=== PATIENT | male | born 1950 | race Caucasian/White ===

== ENCOUNTER 2020-03-15 10:55 | Emergency (ER) | payer MEDICARE, OTHER, MEDICAID, SELFPAY ==
[2020-03-15] VITALS (7 sets, daily range): BP systolic 126–148; BP diastolic 63–83; PULSE 84–101; RESP 19–22; TEMP 37.1; O2SAT 95–97; BMI 23.6
--- NOTE | 2020-03-15 10:55 | ECG_ITS ---
APPROVED REPORT Exam: Resting ECG HR:101 bpm ECG Measurements Heart Rate 101 AXES SD 128 P 68 QRSd 98 QRS 89 QT 346 T 65 QTc 448 Conclusion Sinus tachycardia with occasional premature ventricular complexes Incomplete right bundle branch block Borderline ECG Electronically signed by : Kai Romano, 03/15/2020 16:33:49
--- NOTE | 2020-03-15 11:03 | [facility].EDSOB ---
ED Disposition Clinical Impression: COVID-19, Pneumonia due to COVID-19 virus Disposition: Home, Self-Care Condition on Discharge: Good Instructions: Pneumonia-Adult Referrals: Rey Tanner [Primary Care Provider] - 3 days Time of Disposition: 14:24 - Critical Care Critical Care Time: No Attestation: On , the high probability of a clinically significant, sudden or life threatening deterioration of the following system(s) required my full and direct attention, intervention and personal management. The time I documented below is in addition to time spent performing reported procedures but includes the following listed in this critical care notation. Medical Decision Making - Medical Records Medical records reviewed: Yes: I reviewed the patient's medical records. - Judd Inquiry Pt receiving controlled substance: No Vital Signs: 03/15/20 10:57 03/15/20 11:27 03/15/20 12:00 Temperature 98.8 F Temperature Source Oral Pulse Rate [Left Radial] 101 H 96 H 91 H Respiratory Rate 22 Blood Pressure [Right Arm] 141/83 H 145/73 H 143/67 H Blood Pressure Mean [Right Arm] 102 97 92 Blood Pressure Source [Right Arm] Automatic Cuff Automatic Cuff Automatic Cuff Blood Pressure Position [Right Arm] Sitting Sitting Sitting 02 Sat by Pulse Oximetry 95 96 96 Oxygen Delivery Method Room Air Room Air Room Air 03/15/20 13:00 03/15/20 13:30 Temperature Temperature Source Pulse Rate [Left Radial] 93 H 84 Respiratory Rate Blood Pressure [Right Arm] 145/63 H 132/64 Blood Pressure Mean [Right Arm] 90 86 Blood Pressure Source [Right Arm] Automatic Cuff Automatic Cuff Blood Pressure Position [Right Arm] Sitting Sitting 02 Sat by Pulse Oximetry 95 96 Oxygen Delivery Method Room Air Room Air - Lab Data Lab Results 03/15/20 10:52: Magnesium 2.0, Troponin I < 0.01 03/15/20 10:59: WBC 7.0, RBC 5.11, Hgb 15.5, Hct 47.0, MCV 91.9, MCH 30.3, MCHC 33.0, RDW 13.6, Plt Count 203, MPV 9.1, Neut % (Auto) 83.8 H, Lymph % (Auto) 9.1 L, [place] % (Auto) 6.5, Eos % (Auto) 0.0 L, Baso % (Auto) 0.6, Neut # (Auto) 5.9, Lymph # (Auto) 0.6 L, [place] # (Auto) 0.5, Eos # (Auto) 0.0, Baso # (Auto) 0.0 03/15/20 10:59: Sodium 137, Potassium 4.2, Chloride 99, Carbon Dioxide 27, Anion Gap 15.2 H, BUN 17, Creatinine 0.80, Estimated Creat Clear 73, Estimated GFR 96, Est GFR ( Amer) 116, Glucose 133 H, Calcium 9.5, Total Bilirubin 0.8, AST 44, ALT 24, Alkaline Phosphatase 72, Total Protein 8.6 H, Albumin 4.6, Globulin 4.0 H, Albumin/Globulin Ratio 1.2 03/15/20 11:05: Chlamy pneumoniae PCR Not detected, Adenovirus (PCR) Not detected, B. pertussis DNA (PCR) Not detected, Coronavirus OC43 (PCR) Not detected, Coronavirus HKU1 (PCR) Not detected, Coronavirus 229E (PCR) Not detected, SARS-CoV-2 (PCR) Detected A, Coronavirus NL63 (PCR) Not detected, Human Metapneumovir PCR Not detected, Influenza A (H1) PCR Not detected, Influ A (H1N1/09) PCR Not detected, Influenza A (H3) PCR Not detected, Influenza Type A (PCR) Not detected, Influenza Type B (PCR) Not detected, M. pneumoniae (PCR) Not detected, Parainfluenza 1 (PCR) Not detected, Parainfluenza 2 (PCR) Not detected, Parainfluenza 3 (PCR) Not detected, Parainfluenza 4 (PCR) Not detected, RSV (PCR) Not detected, Entero/Rhino (PCR) Not detected Result diagrams: 03/15/20 10:59 03/15/20 10:59 Orders (Tests/Meds): ED MEDICATIONS Generic Name Dose Route Start Last Admin Trade Name Freq PRN Reason Stop Dose Admin Sodium Chloride 10 ml 03/15/20 12:25 03/15/20 12:27 Sodium Chloride 0.9% 10ml Syr (Rad Only) IV 04/14/20 12:24 10 ml NEEDED PRN Administration Maintain IV Site Discontinued Medications Generic Name Dose Route Start Last Admin Trade Name Freq PRN Reason Stop Dose Admin Diphenhydramine HCl 25 mg 03/15/20 12:13 03/15/20 12:23 Diphenhydramine 50mg/Ml Vial IV 03/15/20 12:14 25 mg ONCE ONE Administration Iopamidol 70 ml 03/15/20 12:25 03/15/20 12:27 Iopamidol-
--- NOTE | 2020-03-15 11:05 | XR_ITS ---
PROCEDURE: XR CHEST PORTABLE CLINICAL HISTORY: sob Chest pain, former smoker COMPARISON: No exams were available for comparison FINDINGS: There are no previous exams available for comparison. Surgical clips are present in both jayjay. There is are changes of COPD. In the right upper lobe there is a irregular area of parenchymal opacity extending to the hilum. While this could be related to scarring or postsurgical change, neoplasm is also consideration. There is mild prominence of the right hilum. Recommend correlation with old studies which are not available at this institution. Patchy infiltrate is present in the right perihilar region. No acute bony abnormalities. IMPRESSION: COPD with postsurgical changes and parenchymal opacity in the right upper lobe which could be due to scarring or neoplasm. Correlation with old exams the Patchy right perihilar infiltrate. Dictated by: Russel Montoya MD 03/15/2020 11:32 Russel Montoya MD in [facility] 03/15/2020 11:32
[2020-03-15 11:16] LABS: Basophils % 0.6 % (0.1-2.0); Hemoglobin 15.5 g/dL (14.1-18.0); Lymphocytes # 0.6 K/mm3 (0.7-4.5); Lymphocytes % 9.1 % (10-50); Mean Corpuscular Hemoglobin 30.3 pg (27.0-31.2); Mean Corpuscular Volume 91.9 fl (80-94); Mean Platelet Volume 9.1 fl (7.4-10.4); Monocytes # 0.5 K/mm3 (0.1-1.0); Monocytes % 6.5 % (1.7-9.3); Neutrophils # 5.9 K/mm3 (1.8-7.8); Neutrophils % 83.8 % (37.0-80.0); Platelet Count 203 K/mm3 (142-424); Red Blood Count 5.11 M/mm3 (4.60-6.20); Red Cell Distribution Width 13.6 % (11.5-17.5)
[2020-03-15 11:33] LABS: Alanine Aminotransferase 24 U/L (12-78); Albumin Level 4.6 g/dl (3.5-5.0); Albumin/Globulin Ratio 1.2 (1.1-1.8); Alkaline Phosphatase 72 U/L (38-126); Anion Gap 15.2 mEq/L (5-15); Aspartate Amino Transferase 44 U/L (17-59); Bilirubin,Total 0.8 mg/dl (0.2-1.3); Blood Urea Nitrogen 17 mg/dl (9-20); Calcium 9.5 mg/dl (8.4-10.2); Carbon Dioxide 27 mmol/L (22.0-30.0); Chloride 99 mmol/L (98-107); Creatinine Clearance Estimated 73 mL/min (50-200); Estimated Glomerular Filt Rate 96 ml/min (>60); GFR (African American) 116 ML/MIN (>60); Glucose 133 mg/dl (74-100); Potassium 4.2 mmoL/L (3.5-5.1); Sodium 137 mmol/L (136-145); Total Protein,Serum 8.6 g/dl (6.3-8.2)
[2020-03-15 11:49] LABS: Troponin I < 0.01 ng/ml (0.00-0.034)
[2020-03-15 11:52] LABS: Adenovirus,PCR Not Detected (NotDetected); Bordetella Pertussis Not Detected (NotDetected); Chlamydophila Pneumoniae, PCR Not Detected (NotDetected); Coronavirus 229E Not Detected (NotDetected); Coronavirus NL63 Not Detected (NotDetected); Coronavirus OC43 Not Detected (NotDetected); Coronovirus HKU1,PCR Not Detected (NotDetected); Human Metapneumovirus Not Detected (NotDetected); Influenza A, PCR Not Detected (NotDetected); Influenza AH1, 2009 Not Detected (NotDetected); Influenza AH1, PCR Not Detected (NotDetected); Influenza AH3,PCR Not Detected (NotDetected); Influenza B, PCR Not Detected (NotDetected); Mycoplasma Pneumoniae, PCR Not Detected (NotDetected); Parainfluenza 1, PCR Not Detected (NotDetected); Parainfluenza 2, PCR Not Detected (NotDetected); Parainfluenza 3, PCR Not Detected (NotDetected); Parainfluenza 4, PCR Not Detected (NotDetected); Respiratory Syncytial Virus Not Detected (NotDetected); Rhinovirus/Enterovirus Not Detected (NotDetected)
--- NOTE | 2020-03-15 11:59 | CT_ITS ---
PROCEDURE: CT ANGIO CHEST CLINCIAL INDICATION: abnl xray; h/o Lung cancer Shortness of breath, former smoker COMPARISON: No exams were available for comparison TECHNIQUE: IV Contrast: 70ML Isovue 370 Axial images obtained with sagittal and coronal reformats. All CT scans at the facility use one or more dose reduction, viz: automated exposure control, ma/kV adjustment per patient size (including targeted exams where dose is matched to indication, i.e. head), or iterative reconstruction technique. FINDINGS: HEART AND MEDIASTINAL STRUCTURES: No evidence of aortic dissection. There is mild fusiform dilatation of the proximal descending thoracic aorta at 3.3 cm no evidence of pulmonary embolus. LUNGS AND PLEURAL SPACES: There are changes of COPD. Postsurgical changes are present in the jayjay on both sides. Appears to been a prior right lower lobe lobectomy in a prior left upper lobectomy. Please correlate with patient's surgical history. Increased soft tissue density is present in the right hilum and posterior to the right lower lobe bronchus. This area of soft tissue density posterior to the right lower lobe bronchus in the right paraspinal region measures 3.8 x 3 cm AP and transverse. There are surgical clips in this region. This could be related to postsurgical and post radiation changes. There are no previous exams for comparison. Residual or recurrence neoplasm is also a consideration. Scarring is present in the right mid to upper lung zone posteriorly. In addition, there is septal thickening in the right mid lung and right lung base suspicious for superimposed infiltrate upon chronic changes. Covid19 pneumonia would be a consideration. No effusions are evident. BONY STRUCTURES: Degenerative changes thoracic spine with osteophytosis UPPER ABDOMEN: The left adrenal gland is enlarged measuring 2 cm with a density of 10 Hounsfield units which could represent an adenoma. Correlation with old studies needed. Cholelithiasis noted. ADDITIONAL FINDINGS: No other significant abnormalities. IMPRESSION: 1. Postsurgical changes of both right and left lung with COPD. 2. Abnormal soft tissue density posterior to the right hilum in the right midlung posteriorly in the paraspinal region. This may be related to postsurgical change with scarring and or radiation fibrosis. Cannot exclude the possibility of residual or recurrence neoplasm. Correlation with old films and follow-up is needed. 3. Patchy density with septal thickening in the right mid and lower lung zone consistent with pneumonia and may be seen with Covid19 pneumonia. 4. Enlarged indeterminate left adrenal gland. Dictated by: Russel Montoya MD 03/15/2020 12:54 Russel Montoya MD in [facility] 03/15/2020 12:54
--- NOTE | 2020-03-15 12:08 | PC.NURSE ---
Patient going to rad.
--- NOTE | 2020-03-15 12:39 | PC.NURSE ---
Pt returned from rad
[2020-03-15 13:26] LABS: Coronavirus 19, PCR Detected (NotDetected)
--- NOTE | 2020-03-15 13:28 | PC.NURSE ---
notified ER pt is covid positive per lab staff
--- NOTE | 2020-03-15 14:24 | PC.NURSE ---
MD advised to cancel second troponin.
== END 2020-03-15 14:59 | disposition home or self-care (01) ==
PROVIDERS: Emergency Provider Family Medicine; PCP Family Medicine
DX: U07.1 COVID-19 (principal); J12.82 Pneumonia due to coronavirus disease 2019; Z01.84 Encounter for antibody response examination; Z85.118 Personal history of other malignant neoplasm of bronchus and lung
CPT/HCPCS: 71045; 71275; 80053; 83735; 84484; 85025; 87581; 87633; 87798; 93005; 96374; 96375; 99283; J2405; Q9967

== ENCOUNTER 2020-03-19 10:34 | Outpatient (CLI) | payer MEDICARE, OTHER, SELFPAY ==
[2020-03-19] VITALS (9 sets, daily range): BP systolic 135–149; BP diastolic 61–74; PULSE 76–98; RESP 16–20; TEMP 37.1–37.3; O2SAT 97–100
== END 2020-03-19 13:35 | disposition home or self-care (01) ==
PROVIDERS: PCP Family Medicine; Visit Provider Family Medicine
DX: U07.1 COVID-19 (principal)
CPT/HCPCS: 96365

== ENCOUNTER 2024-02-23 07:08 | Emergency (ER) | payer MEDICARE, OTHER, SELFPAY ==
[2024-02-23] VITALS (10 sets, daily range): BP systolic 139–186; BP diastolic 63–110; PULSE 74–104; RESP 9–24; TEMP 36.6; O2SAT 96–100; BMI 25.7
--- NOTE | 2024-02-23 07:17 | ECG_ITS ---
APPROVED REPORT Exam: Resting ECG HR:92 bpm ECG Measurements Heart Rate 92 AXES NV 160 P 85 QRSd 106 QRS 77 QT 333 T 62 QTc 383 Conclusion SINUS RHYTHM INCOMPLETE RIGHT BUNDLE BRANCH BLOCK [90+ ms QRS DURATION, TERMINAL R IN V1/V2, 40+ ms S IN I/aVL/V4/V5/V6] BORDERLINE ECG Electronically signed by : CHINEDU SELBY, 02/23/2024 15:32:19
--- NOTE | 2024-02-23 07:22 | CT_ITS ---
PROCEDURE INFORMATION: Exam: CTA Chest With Contrast Exam date and time: 02/23/2024 9:08 AM Age: 73 years old Clinical indication: Cough and dyspnea; Prior surgery; Surgery date: 6+ months; Surgery type: Lobectomy 2013; Additional info: Prev lung cancer SOB cough S/P lobectomy TECHNIQUE: Imaging protocol: Computed tomographic angiography of the chest with contrast. Exam focused on the arteries. 3D rendering (Not supervised by radiologist): MIP and/or 3D reconstructed images were created by the technologist. Radiation optimization: All CT scans at this facility use at least one of these dose optimization techniques: automated exposure control; mA and/or kV adjustment per patient size (includes targeted exams where dose is matched to clinical indication); or iterative reconstruction. Contrast material: ISOVUE; Contrast volume: 70 ml; Contrast route: INTRAVENOUS (IV); COMPARISON: CT ANGIO CHEST 03/15/2020 12:17 PM FINDINGS: Pulmonary arteries: Pulmonary vasculature is adequately opacified without filling defects or other evidence of acute pulmonary embolism. Aorta: Scattered atherosclerotic changes of the thoracic aorta. No aortic aneurysm. Lungs: Stable postsurgical changes right hilum from partial lobectomy with chronic subsegmental atelectasis and scarring extending posteriorly into the superior segment left lower lobe redemonstrated. There is extension superiorly-laterally into the right upper lobe where there is a 2.5 cm spiculated mass now demonstrated concerning for recurrent tumor. There are superimposed upper lobe emphysematous changes, stable. There are minor atelectatic changes the lung bases improved from prior study. Pleural spaces: Unremarkable. No pneumothorax. No pleural effusion. Heart: Heart is not significantly enlarged. There are mild calcifications of the coronary arteries. No significant pericardial effusion. Lymph nodes: Unremarkable. No enlarged lymph nodes. Adrenal glands: The 2 cm left adrenal lesion unchanged likely representing a benign adenoma. Bones/joints: There are no acute bony abnormalities or suspicious bone lesions detected. Soft tissues: Unremarkable. IMPRESSION: 1. Negative CT angiogram of the chest. No evidence of acute pulmonary embolism. 2. Postsurgical changes right hilum with associated scarring extending posteriorly to the right hilum, unchanged. 3. There is also extension superiorly-laterally into the right upper lobe that has progressed where there is now a 2.5 cm spiculated masslike density raising concern for recurrent tumor. CT-PET scan recommended for further evaluation.. COMMENTS: The presence of pulmonary emphysema on CT is an independent risk factor for lung cancer. In the absence of a history or active diagnosis of lung cancer, it is recommended that this patient with emphysema be evaluated for enrollment in a low dose CT lung cancer screening program.
--- NOTE | 2024-02-23 07:25 | ED_ITS ---
Discharge Plan Disposition Patient Disposition: Home, Self-Care Prescriptions Prescriptions: New prednisone 50 mg tablet 50 mg PO DAILY 5 Days Qty: 5 0RF azithromycin [Zithromax Z-Pelon] 250 mg tablet 250 mg PO DAILY 4 Days Qty: 4 0RF Rx Instructions: start on day 2 of therapy No Action azithromycin 250 MG tablet 250 mg PO DIRECTED Qty: 6 0RF Rx Instructions: Take two (2) tablets on day #1, then one (1) tablet day #2 thru #5 Referrals Follow up/Referrals: Provider,Referral, MD [Primary Care Provider] - See instructions Activity Restrictions/Add. Instructions Additional Instructions/Restrictions: At this time it was felt you are safe to be discharged home. If new or worsening symptoms please do not hesitate to return the emergency department. Please take your medications as prescribed and as discussed please follow-up with your oncologist to continue to keep an eye on the spot on your lung on the right side that you already know about. Clinical Impressions Clinical Impression: Acute exacerbation of chronic obstructive pulmonary disease, Lung mass Print Language Print Language: [place] Discharge ED Provider: Guido Palma HPI General Chief Complaint: Shortness of Breath/Dyspnea Stated Complaint: SOA,cough,weakness,dizziness Time Seen by Provider: 02/23/24 07:13 History of Present Illness HPI narrative: Patient is a 73-year-old male with past medical history of lung cancer status post multiple lobectomy at [facility] who presents emergency department for evaluation of shortness of breath and cough. Onset was subacute, over the last 4 weeks, has been persistent and originally started as a cough where he was not particular short of breath however over the last few days he has had worsening shortness of breath. Denies chest pain. No other acute complaints at this time. Related Data Previous Rx's ?Medication ?Instructions ?Recorded azithromycin 250 mg tablet 250 mg PO DIRECTED #6 tabs 03/15/20 azithromycin 250 mg tablet 250 mg PO DAILY COPD Exacerbation 02/23/24 (Zithromax Z-Pelon) 4 days #4 tabs prednisone 50 mg tablet 50 mg PO DAILY COPD Exacerbation 5 02/23/24 days #5 tabs Allergies Allergy/AdvReac Type Severity Reaction Status Date / Time No Known Allergies Allergy Verified 03/15/20 11:06 [facility] Disclaimer: The information contained in this section may have been updated after the patient was seen, as this information can be updated by other users. Social History Smoking Status: Former smoker alcohol intake: never current occupational status: other Travel in the last 8 weeks: None Other Medical History Have you received the Flu Vaccine for this season: No Have you received the Pneumonia Vaccine: No ROS Obtained: Yes Systems reviewed as appropriate & no additional complaints except as documented Physical Exam General General appearance: alert and in no apparent distress Head Head exam: atraumatic and normocephalic Eye Eye exam: Present PERRL and EOMI ENT ENT exam: Present mucous membranes moist Neck Neck exam: Present normal inspection Chest Chest inspection: Present normal inspection and symmetric chest wall rise Respiratory Respiratory exam: Absent normal lung sounds bilaterally (Diffuse rhonchorous lung sounds, decreased breath sounds at the right base and left apex) or respiratory distress Cardiovascular Cardiovascular exam: Present regular rate and normal rhythm Abdominal Exam Abdominal exam: Present soft; Absent tenderness Extremities Exam Extremities exam: Present normal inspection; Absent edema Neurological Exam Neurological exam: Present alert Psychiatric Psychiatric exam: Present normal affect Skin Skin exam: Present warm and dry HEART Score HEART Score HEART Score assessment performed?: Yes History (anamnesis): Slightly suspicious ECG: Non-specific disturbance Age: >65 years Risk factors: No known risk factors Troponin: </= normal limit HEART Score: 3 Critical Care Critical Care Time Critical Care Time: Yes Attestation: On 02/23/24, the high probability of a clinically significant, sudden or life threatening deterioration of the following system(s) required my full and direct attention, intervention and personal management. The time I documented below is in addition to time spent performing reported procedures but includes the following listed in this critical care notation. Total Time Total Critical Care Time: 35 Medical Decision Making Judd Inquiry Pt receiving controlled substance: No Vital Signs Vital Signs: 02/23/24 07:25 02/23/24 08:00 02/23/24 08:30 Temperature 97.8 F Temperature Source Oral Pulse Rate 74 90 Pulse Rate [Right Radial] 101 H Respiratory Rate 20 9 L 16 Blood Pressure 148/83 H 147/69 H Blood Pressure [Right Arm] 186/110 H Blood Pressure Mean 115 Blood Pressure Mean [Right Arm] 135 02 Sat by Pulse Oximetry 100 100 100 Oxygen Delivery Method Room Air Nasal Cannula 02/23/24 09:00 02/23/24 09:30 02/23/24 10:00 Temperature Temperature Source Pulse Rate 91 H 101 H 102 H Pulse Rate [Right Radial] Respiratory Rate 17 20 18 Blood Pressure 157/67 H 144/68 H 139/63 Blood Pressure [Right Arm] Blood Pressure Mean 88 Blood Pressure Mean [Right Arm] 02 Sat by Pulse Oximetry 100 96 98 Oxygen Delivery Method Room Air Room Air 02/23/24 10:30 02/23/24 11:00 Temperature Temperature Source Pulse Rate 100 H 102 H Pulse Rate [Right Radial] Respiratory Rate 17 18 Blood Pressure 148/68 H 163/78 H Blood Pressure [Right Arm] Blood Pressure Mean Blood Pressure Mean [Right Arm] 02 Sat by Pulse Oximetry 98 99 Oxygen Delivery Method Room Air Room Air Lab Data Labs: Lab Results 02/23/24 07:22: VBG pH 7.28 L, VBG pCO2 60.8 H, VBG pO2 29.4, VBG HCO3 28.1, VBG Total CO2 29.9 H, VBG O2 Saturation 50.9, VBG Base Excess 1.3, VBG Lactic Acid 2.8 H, Chlamy pneumoniae PCR Not detected, Adenovirus (PCR) Not detected, B. pertussis DNA (PCR) Not detected, Coronavirus OC43 (PCR) Not detected, Coronavirus HKU1 (PCR) Not detected, Coronavirus 229E (PCR) Not detected, SARS-CoV-2 (PCR) Not detected, Coronavirus NL63 (PCR) Not detected, Human Metapneumovir PCR Not detected, Influenza A (H1) PCR Not detected, Influ A (H1N1/09) PCR Not detected, Influenza A (H3) PCR Not detected, Influenza Type A (PCR) Not detected, Influenza Type B (PCR) Not detected, M. pneumoniae (PCR) Not detected, Parainfluenza 1 (PCR) Not detected, Parainfluenza 2 (PCR) Not detected, Parainfluenza 3 (PCR) Not detected, Parainfluenza 4 (PCR) Not detected, RSV (PCR) Not detected, Entero/Rhino (PCR) Not detected 02/23/24 07:23: WBC 9.5, RBC 5.43, Hgb 16.3, Hct 49.5, MCV 91.2, MCH 30.0, MCHC 32.9, RDW 12.5, Plt Count 275, MPV 10.3, Neut % (Auto) 73.8, Lymph % (Auto) 14.1, [place] % (Auto) 10.8 H, Eos % (Auto) 0.2, Baso % (Auto) 0.6, Neut # (Auto) 7.0, Lymph # (Auto) 1.3, [place] # (Auto) 1.0, Eos # (Auto) 0.0, Baso # (Auto) 0.1, Sodium 136, Potassium 4.3, Chloride 102, Carbon Dioxide 28, Anion Gap 10.3, BUN 16, Creatinine 0.90, Estimated Creat Clear 79, Estimated GFR 82, Est GFR ( Amer) 100, Glucose 120 H, Calcium 9.7, Total Bilirubin 1.9 H, AST 33, ALT 20, Alkaline Phosphatase 84, Troponin I < 0.01, NT-Pro-B Natriuret Pep 82.1, Total Protein 8.3 H, Albumin 5.0, Globulin 3.3 H, Albumin/Globulin Ratio 1.5 02/23/24 11:06: VBG pH 7.39, VBG pCO2 32.0 L, VBG pO2 50.9 H, VBG HCO3 18.9 L, V BG Total CO2 19.9 L, VBG O2 Saturation 85.9 H, VBG Base Excess -6.1 L, VBG Lactic Acid 2.6 H 02/23/24 07:23 02/23/24 07:23 Response Orders (Tests/Meds): ED MEDICATIONS Discontinued Medications Generic Name Dose Route Start Last Admin Trade Name Freq PRN Reason Stop Dose Admin Albuterol Sulfate 20 mg 02/23/24 08:17 02/23/24 08:20 Albuterol 0.083% 2.5 Mg/3 Ml [facility] 02/23/24 08:18 20 mg ONCE ONE Administration Albuterol/Ipratropium 9 ml 02/23/24 07:22 02/23/24 07:44 Ipratropium/Albuterol 3 Ml Neb 02/23/24 07:23 9 ml ONCE ONE Administration Aspirin 324 mg 02/23/24 07:29 02/23/24 07:33 Aspirin 81mg Chewable Tablet PO 02/23/24 07:30 324 mg ONCE ONE Administration Ceftriaxone Sodium 1 gm/ 50 mls @ 100 mls/hr 02/23/24 08:07 02/23/24 08:33 Sodium Chloride IV 02/23/24 08:36 100 mls/hr ONCE ONE Administration Azithromycin 500 mg/ Sodium 250 mls @ 250 mls/hr 02/23/24 08:07 02/23/24 09:19 Chloride IV 02/23/24 08:08 250 mls/hr ONCE ONE Administration Magnesium Sulfate 2 gm in 50 mls @ 50 mls/hr 02/23/24 08:07 02/23/24 08:17 Magnesium Sulfate 2gm/50ml Premix IV 02/23/24 09:06 50 mls/hr ONCE ONE Administration Iopamidol 70 ml 02/23/24 09:09 02/23/24 09:17 Iopamidol-370 (76%);100ml Bottle IV 02/23/24 09:10 70 ml ONCE ONE Administration Methylprednisolone Sodium Succinate 125 mg 02/23/24 07:22 02/23/24 07:29 Methylprednisolone Sod Succ 125mg Vial IV 02/23/24 07:23 125 mg ONCE ONE Administration Sodium Chloride 50 ml 02/23/24 09:09 02/23/24 09:16 0.9 % Sodium Chloride 50 Ml Vial IV 02/23/24 09:10 50 ml ONCE ONE Administration Sodium Chloride 10 ml 02/23/24 09:09 02/23/24 09:16 Sodium Chloride 0.9% 10ml Syr (Rad Only) IV 02/23/24 09:10 10 ml ONCE ONE Administration ORDERS Category Date Time Status CT angio chest PE protocol Stat Cat Scan 02/23/24 07:22 Completed POCUS Point of Care (ER Only) Stat Exams 02/23/24 07:25 Ordered BNP [NT Pro Brain Natriuretic Pep.] Stat Lab 02/23/24 07:23 Completed CBC w/Auto Diff [Complete Blood Count Auto Diff] Stat Lab 02/23/24 07:23 Completed CMP [Comprehensive Metabolic Panel] Stat Lab 02/23/24 07:23 Completed Full Resp Panel w/COVID ([facility]) Routine Lab 02/23/24 07:22 Completed HIV Combo Stat Lab 02/23/24 07:23 Received Hep C Ab with Reflex to RNA Stat Lab 02/23/24 07:23 Received Lactic Acid Follow Up (RFLX 1) Stat Lab 02/23/24 11:37 Ordered Trop I [Troponin I] Stat Lab 02/23/24 07:23 Completed Blood Culture Stat Micro 02/23/24 08:18 Received VBG [Venous Blood Gas] Stat RT 02/23/24 07:22 Completed VBG [Venous Blood Gas] Stat RT 02/23/24 11:06 Completed ECG Data Tracing #1: ECG Narrative: Independently interpreted by me rate is 92, rhythm is regular, axis is normal, no ST elevation in anatomical contiguous leads, QTc 383 MDM Narrative Medical Decision Narrative: In summary patient is 73-year-old male past medical history described above who presents to the emergency department for evaluation of shortness of breath in the setting of previous lung cancer status post right lower lobe lobectomy, left upper lobe lobectomy. Patient is hemodynamically stable nontoxic-appearing upon arrival, afebrile, saturating the high 90s on room air. He does have diffuse rhonchorous lung sounds. Differential includes prolonged viral pneumonia, bacterial pneumonia, atypical ACS, CHF, malignancy recurrence, pulmonary embolism, among others. Workup will be conducted with hematologic labs, chest x-ray, EKG, troponin, VBG, CT angio chest pulmonary embolism protocol, full viral respiratory panel. Initial inventions include methylprednisolone, DuoNeb x 3, aspirin, ceftriaxone, azithromycin. Sepsis bolus fluids were considered however given the patient is euvolemic will be deferred at this time. Initial workup reviewed by me, hematologic labs no significant leukocytosis, there is slight hypercarbic acidosis for which patient will be opened up with DuoNebs and steroids and will be repeated to see if he can build soft on his own versus requiring BiPAP and admission. No MADY or critical electrolyte abnormality initial troponin undetectably low, viral swab negative. Chest CTA informally visualized by me, no saddle pulmonary embolism. Formal read shows no evidence of pulmonary embolism postsurgical changes of the right hilum with scarring, 2.5 cm spiculated masslike density concerning for recurrent tumor in the right upper lobe. Repeat VBG conducted given on repeat evaluation patient had near total resolution of wheezing and good air movement, repeat VBG shows that he is compensating and does not have any hypercarbic acidosis any longer. This makes sense given with his physical exam his lungs have opened up and he is now ventilating properly. Patient has no other reason for admission. Given this patient is appropriate for discharge at this time was given metered-dose inhaler with instructions on how to use it prior to discharge will be discharged with a course of azithromycin and steroids was given multiple return precautions verbalized understanding.
[2024-02-23] MEDS: METHYLPREDNISOLONE SOD SUCC 125MG VIAL 125 MG IV (07:29)
[2024-02-23 07:30] LABS: Adenovirus,PCR Not Detected (NotDetected); Bordetella Pertussis Not Detected (NotDetected); Chlamydophila Pneumoniae, PCR Not Detected (NotDetected); Coronavirus 19, PCR Not Detected (NotDetected); Coronavirus 229E Not Detected (NotDetected); Coronavirus NL63 Not Detected (NotDetected); Coronavirus OC43 Not Detected (NotDetected); Coronovirus HKU1,PCR Not Detected (NotDetected); Human Metapneumovirus Not Detected (NotDetected); Influenza A, PCR Not Detected (NotDetected); Influenza AH1, 2009 Not Detected (NotDetected); Influenza AH1, PCR Not Detected (NotDetected); Influenza AH3,PCR Not Detected (NotDetected); Influenza B, PCR Not Detected (NotDetected); Mycoplasma Pneumoniae, PCR Not Detected (NotDetected); Parainfluenza 1, PCR Not Detected (NotDetected); Parainfluenza 2, PCR Not Detected (NotDetected); Parainfluenza 3, PCR Not Detected (NotDetected); Parainfluenza 4, PCR Not Detected (NotDetected); Respiratory Syncytial Virus Not Detected (NotDetected); Rhinovirus/Enterovirus Not Detected (NotDetected)
[2024-02-23] MEDS: ASPIRIN 81MG CHEWABLE TABLET 324 MG PO (07:33)
[2024-02-23 07:36] LABS: VBG Base Excess 1.3 mmol/L (-2.4-2.3); VBG HCO3 28.1 mmol/L (23-30); VBG Oxygen Saturation 50.9 % (50-70); VBG PCO2 60.8 mmol/L (35-51); VBG PH 7.28 mmol/L (7.31-7.41); VBG PO2 29.4 mmol/L (28-40); VBG Total CO2 29.9 mmol/L (23-27)
[2024-02-23 07:38] LABS: Lactate Venous 2.8 mmol/L (0.4-2.0)
[2024-02-23] MEDS: IPRATROPIUM/ALBUTEROL 3 ML NEB 9 ML IH (07:44)
[2024-02-23 07:49] LABS: Chloride 102 mmol/L (98-107); Sodium 136 mmol/L (136-145)
[2024-02-23 07:50] LABS: Potassium 4.3 mmoL/L (3.5-5.1)
[2024-02-23 07:52] LABS: Alanine Aminotransferase 20 U/L (12-78); Anion Gap 10.3 mEq/L (5-15); Aspartate Amino Transferase 33 U/L (17-59); Blood Urea Nitrogen 16 mg/dl (9-20); Carbon Dioxide 28 mmol/L (22.0-30.0); Creatinine Clearance Estimated 79 mL/min (50-200); Estimated Glomerular Filt Rate 82 ml/min (>60); GFR (African American) 100 ML/MIN (>60)
[2024-02-23 07:53] LABS: Albumin/Globulin Ratio 1.5 (1.1-1.8); Alkaline Phosphatase 84 U/L (38-126); Bilirubin,Total 1.9 mg/dl (0.2-1.3); Calcium 9.7 mg/dl (8.4-10.2); Globulin 3.3 g/dL (1.3-3.2); Glucose 120 mg/dl (74-100); Total Protein,Serum 8.3 g/dl (6.3-8.2)
[2024-02-23 07:54] LABS: Basophils % 0.6 % (0.1-2.0); Eosinophils % 0.2 % (0.1-12.0); Hematocrit 49.5 % (42.0-52.0); Hemoglobin 16.3 g/dL (14.1-18.0); Lymphocytes % 14.1 % (10-50); Mean Corpuscular HGB Conc 32.9 g/dL (31.8-35.4); Mean Corpuscular Volume 91.2 fl (80-94); Mean Platelet Volume 10.3 fl (7.4-10.4); Monocytes % 10.8 % (1.7-9.3); Neutrophils % 73.8 % (37.0-80.0); Platelet Count 275 K/mm3 (142-424); Red Blood Count 5.43 M/mm3 (4.60-6.20); Red Cell Distribution Width 12.5 % (11.5-17.5); White Blood Count 9.5 K/mm3 (4.8-10.8)
[2024-02-23 07:55] LABS: Basophils # 0.1 K/mm3 (0-0.2); Lymphocytes # 1.3 K/mm3 (0.7-4.5)
[2024-02-23 08:02] LABS: NT Pro Brain Natriuretic Pep. 82.1 pg/mL (0-125)
[2024-02-23] MEDS: MAGNESIUM SULFATE IN WATER 2 GM/50 ML PIGGYBACK IV (08:17)
[2024-02-23] MEDS: ALBUTEROL 0.083% 2.5 MG/3 ML NEB 20 MG IH (08:20)
[2024-02-23 08:27] LABS: Troponin I < 0.01 ng/ml (0.00-0.034)
[2024-02-23] MEDS: CEFTRIAXONE 1 GM 1 GM in 0.9 % SODIUM CHLORIDE 50 ML IV (08:33)
[2024-02-23] MEDS: 0.9 % SODIUM CHLORIDE 50 ML VIAL IV (09:16)
[2024-02-23] MEDS: SODIUM CHLORIDE 0.9% 10ML SYR (RAD ONLY) 10 ML IV (09:16)
[2024-02-23] MEDS: IOPAMIDOL-370 (76%);100ML BOTTLE 70 ML IV (09:17)
[2024-02-23] MEDS: AZITHROMYCIN 500 MG in 0.9 % SODIUM CHLORIDE 250 ML 250 MG IV (09:19)
[2024-02-23 11:10] LABS: VBG Base Excess -6.1 mmol/L (-2.4-2.3); VBG HCO3 18.9 mmol/L (23-30); VBG Oxygen Saturation 85.9 % (50-70); VBG PH 7.39 mmol/L (7.31-7.41); VBG PO2 50.9 mmol/L (28-40); VBG Total CO2 19.9 mmol/L (23-27)
[2024-02-23 11:14] LABS: Lactate Venous 2.6 mmol/L (0.4-2.0)
[2024-02-23 11:37] LABS: Reflex Lactic Add Lactic Reflex
[2024-02-23 12:25] LABS: HIV Combo NEGATIVE (Negative)
[2024-02-25 08:29] LABS: HCV Ab Non Reactive (Non Reactive)
== END 2024-02-23 12:04 | disposition home or self-care (01) ==
PROVIDERS: Emergency Provider Emergency Medicine
DX: J44.1 Chronic obstructive pulmonary disease with (acute) exacerbation (principal); R91.8 Other nonspecific abnormal finding of lung field; R06.02 Shortness of breath; R05.9 Cough, unspecified; Z87.891 Personal history of nicotine dependence
CPT/HCPCS: 71275; 80053; 82803; 83880; 84484; 85025; 86803; 87040; 87389; 87633; 93005; 96365; 96366; 96374; 96375; 99291; J0456; J0696; J2919; J3475; J7050; J7613; J7620; Q9967

== ENCOUNTER 2024-02-25 23:17 | Emergency (ER) | payer MEDICARE, OTHER, SELFPAY ==
[2024-02-25 23:18] VITALS: BP 106/59; PULSE 99; RESP 24; TEMP 36.6; O2SAT 99; BMI 22.9
--- NOTE | 2024-02-25 23:25 | XR_ITS ---
PROCEDURE INFORMATION: Exam: XR Chest Exam date and time: 02/26/2024 12:34 AM Age: 73 years old Clinical indication: Cough; Additional info: Cough copd TECHNIQUE: Imaging protocol: Radiologic exam of the chest. Views: 2 views. COMPARISON: CT ANGIO CHEST PE PROTOCOL 02/23/2024 9:08 AM FINDINGS: Tubes, catheters and devices: Bilateral hilar surgical clips. Lungs: Right suprahilar scarring. Mild hyperexpansion of the lungs. Pleural spaces: Unremarkable. No pleural effusion. No pneumothorax. Heart/Mediastinum: Unremarkable. No cardiomegaly. Bones/joints: Unremarkable. IMPRESSION: No acute findings.
--- NOTE | 2024-02-25 23:25 | ECG_ITS ---
APPROVED REPORT Exam: Resting ECG HR:84 bpm ECG Measurements Heart Rate 84 AXES OH 153 P 85 QRSd 106 QRS 58 QT 359 T 65 QTc 400 Conclusion SINUS RHYTHM WITH OCCASIONAL VENTRICULAR PREMATURE COMPLEXES INCOMPLETE RIGHT BUNDLE BRANCH BLOCK [90+ ms QRS DURATION, TERMINAL R IN V1/V2, 40+ ms S IN I/aVL/V4/V5/V6] No STEMI Electronically signed by : YINA COSTA, 02/26/2024 07:15:35
--- NOTE | 2024-02-25 23:31 | ED_ITS ---
Discharge Plan Disposition Patient Disposition: Home, Self-Care Condition: Fair Prescriptions Prescriptions: New amoxicillin-pot clavulanate 875-125 mg tablet 1 tab PO BID 7 Days Qty: 14 0RF No Action azithromycin 250 MG tablet 250 mg PO DIRECTED Qty: 6 0RF Rx Instructions: Take two (2) tablets on day #1, then one (1) tablet day #2 thru #5 prednisone 50 mg tablet 50 mg PO DAILY 5 Days Qty: 5 0RF azithromycin [Zithromax Z-Pelon] 250 mg tablet 250 mg PO DAILY 4 Days Qty: 4 0RF Rx Instructions: start on day 2 of therapy Referrals Follow up/Referrals: Provider,Referral, MD [Primary Care Provider] - See instructions Activity Restrictions/Add. Instructions Additional Instructions/Restrictions: You were evaluated in the ER and are appropriate for discharge at this time. Continue taking the azithromycin. Also start taking the newly prescribed amoxicillin?clavulanate. Take these antibiotics as directed. Do not skip doses, do not stop taking them early. The amoxicillin may cause diarrhea, eat yogurt or take a probiotic to help avoid the side effect. Drink plenty of fluids. Take your inhaler 2 puffs every 4 hours for the next 48 hours. After that, take 2 puffs if needed for shortness of breath every 6 hours. Make an appointment with your primary care doctor for reevaluation in a few days. Return to the ER with new, worsening, or otherwise concerning symptoms. Clinical Impressions Clinical Impression: Pneumonia Print Language Print Language: Lebanese Discharge ED Provider: Ev Enriquez General Adult HPI General Chief complaint: Shortness of Breath/Dyspnea Stated complaint: SOA, arms tingling Time Seen by Provider: 02/25/24 23:25 History of Present Illness HPI narrative: 73-year-old male with history of COPD, previously known reportedly benign right lung mass presents to the ER for complaints of cough, worsening shortness of breath. Patient was evaluated on and prescribed azithromycin and given an inhaler. He states he has been using all of the medications he was prescribed as directed but seems to be getting worse. He states he has extreme shortness of breath with any walking or exertion. He does not have any new swelling in the feet or legs, he reports no chest pain. He and family at bedside state they can hear rattling in his chest and throat. He is having a productive cough. He has no headache, numbness, tingling, weakness, vomiting, diarrhea, he reports no fevers or chills. ROS otherwise negative. Related Data Previous Rx's ?Medication ?Instructions ?Recorded azithromycin 250 mg tablet 250 mg PO DIRECTED #6 tabs 03/15/20 azithromycin 250 mg tablet 250 mg PO DAILY COPD Exacerbation 02/23/24 (Zithromax Z-Pelon) 4 days #4 tabs prednisone 50 mg tablet 50 mg PO DAILY COPD Exacerbation 5 02/23/24 days #5 tabs amoxicillin 875 mg-potassium 1 tab PO BID 7 days #14 tabs 02/26/24 clavulanate 125 mg tablet Allergies Allergy/AdvReac Type Severity Reaction Status Date / Time No Known Allergies Allergy Verified 03/15/20 11:06 [facility] Disclaimer: The information contained in this section may have been updated after the patient was seen, as this information can be updated by other users. Social History (Updated 02/23/24 @ 11:57 by Guido Palma MD) Smoking Status: Former smoker alcohol intake: never current occupational status: other Travel in the last 8 weeks: None Have you lived/traveled outside [place] in past 30 days?: No Contact w/someone who lives/traveled outside [place] past 30 days?: No Exposure to someone with infectious disease in past 14 days?: No Do you have a fever (greater than 100.4 F or 38 C)?: No Have you tested positive for COVID-19: No Exposed to someone with COVID-19 in past 14 days?: No Do you have a sore throat?: No Do you have a cough?: Yes Do you have any weakness?: No Do you have any diarrhea?: No Are you experiencing any unusual bleeding?: No Do you have any muscle aches/pain?: No Do you have any abdominal pain?: No Are you experiencing loss of taste or smell?: No Other Medical History Have you received the Flu Vaccine for this season: No Have you received the Pneumonia Vaccine: No ROS Obtained: Yes Systems reviewed as appropriate & no additional complaints except as documented Per HPI Physical Exam General General appearance: alert and in no apparent distress Head Head exam: atraumatic and normocephalic Eye Eye exam: Present PERRL and EOMI ENT ENT exam: Present mucous membranes moist Neck Neck exam: Present normal inspection and full ROM Chest Chest inspection: Present symmetric chest wall rise Respiratory Respiratory exam: Present wheezes (Mild wheezes throughout, end expiratory); Absent normal lung sounds bilaterally (Significantly diminished breath sounds on the right, significant rhonchi and rales in the right lower lobe, mild rales in the right upper lobe), respiratory distress or stridor Cardiovascular Cardiovascular exam: Present regular rate and normal rhythm Abdominal Exam Abdominal exam: Present soft; Absent distention or tenderness Extremities Exam Extremities exam: Present full ROM; Absent edema Neurological Exam Neurological exam: Present alert and oriented X3; Absent motor sensory deficit Psychiatric Psychiatric exam: Present normal affect and normal mood Skin Skin exam: Present warm and dry Medical Decision Making Medical Records Screening: Per USPSTF and CDC recommendations, given the prevalence of disease in our region, it is our hospital?s policy to screen for HIV and viral Hepatitis for all patients aged 18 and over and those with ongoing risk factors. Judd Inquiry Pt receiving controlled substance: No Vital Signs: 02/25/24 23:18 02/25/24 23:45 02/25/24 23:45 Temperature 97.9 F Temperature Source Oral Pulse Rate 80 68 Pulse Rate [Right] 99 H Respiratory Rate 24 Blood Pressure Blood Pressure [Right Arm] 106/59 L Blood Pressure Mean [Right Arm] 74 Blood Pressure Source Blood Pressure Source [Right Arm] Automatic Cuff Blood Pressure Position Blood Pressure Position [Right Arm] Sitting 02 Sat by Pulse Oximetry 99 Oxygen Delivery Method 02/26/24 02:22 Temperature 97.9 F Temperature Source Oral Pulse Rate 70 Pulse Rate [Right] Respiratory Rate 18 Blood Pressure 160/71 H Blood Pressure [Right Arm] Blood Pressure Mean [Right Arm] Blood Pressure Source Automatic Cuff Blood Pressure Source [Right Arm] Blood Pressure Position Supine Blood Pressure Position [Right Arm] 02 Sat by Pulse Oximetry Oxygen Delivery Method Room Air Lab Data Lab Results 02/25/24 23:25: VBG pH 7.41, VBG pCO2 35.7, VBG pO2 34.0, VBG HCO3 21.9 L, VBG Total CO2 23.0, VBG O2 Saturation 67.9, VBG Base Excess -2.9 L, VBG Lactic Acid 1.3 02/25/24 23:33: WBC 11.6 H, RBC 4.92, Hgb 14.8, Hct 44.9, MCV 91.3, MCH 30.1, MCHC 33.0, RDW 12.6, Plt Count 252, MPV 10.6 H, Neut % (Auto) 76.4, Lymph % (Auto) 15.8, [place] % (Auto) 7.0, Eos % (Auto) 0.2, Baso % (Auto) 0.3, Neut # (Auto) 8.8 H, Lymph # (Auto) 1.8, [place] # (Auto) 0.8, Eos # (Auto) 0.0, Baso # (Auto) 0.0, PT 9.9 L, INR 0.87 L, Sodium 136, Potassium 4.2, Chloride 103, Carbon Dioxide 24, Anion Gap 13.2, BUN 24 H D, Creatinine 0.90, Estimated Creat Clear 72, Estimated GFR 82, Est GFR ( Amer) 100, Glucose 97, Calcium 9.7, Total Bilirubin 0.9, AST 33, ALT 18, Alkaline Phosphatase 80, Troponin I < 0.01, NT-Pro-B Natriuret Pep 194 H, Total Protein 7.3, Albumin 4.5, Globulin 2.8, Albumin/Globulin Ratio 1.6 02/25/24 23:33 02/25/24 23:33 Orders (Tests/Meds): ED MEDICATIONS Discontinued Medications Generic Name Dose Route Start Last Admin Trade Name Freq PRN Reason Stop Dose Admin Albuterol/Ipratropium 9 ml 02/25/24 23:25 02/25/24 23:43 Ipratropium/Albuterol 3 Ml Neb IH 02/25/24 23:26 9 ml ONCE ONE Administration Lactated Ringer's 1,000 mls @ 999 mls/hr 02/26/24 00:42 02/26/24 01:06 Lactated Ringer's 1000 Ml Bag IV 02/26/24 01:42 999 mls/hr .Q1H1M ONE Administration Ceftriaxone Sodium 1 gm/ 50 mls @ 100 mls/hr 02/26/24 00:45 02/26/24 01:05 Sodium Chloride IV 03/07/24 00:44 100 mls/hr Q24H SATURNINO Administration ORDERS Category Date Time Status CXR 2 view (NOT portable) [XR chest 2V] Stat Exams 02/25/24 23:25 Taken BNP [NT Pro Brain Natriuretic Pep.] Stat Lab 12/27/24 23:33 Completed CBC w/Auto Diff [Complete Blood Count Auto Diff] Stat Lab 02/25/24 23:33 Completed CMP [Comprehensive Metabolic Panel] Stat Lab 02/25/24 23:33 Completed HIV Combo Stat Lab 02/25/24 23:33 Received PT INR [Prothrombin Time INR] Stat Lab 02/25/24 23:33 Completed Trop I [Troponin I] Stat Lab 02/25/24 23:33 Completed VBG [Venous Blood Gas] Stat RT 02/25/24 23:25 Completed Medical Decision Narrative: In summary, this 73-year-old male with comorbidities described in the HPI presents to the emergency department today with cough, shortness of breath, recent COPD exacerbation on azithromycin, steroids, inhaler with worsening of symptoms. On initial evaluation patient is hemodynamically stable, afebrile, physical exam most notable for diminished breath sounds on the right with rales in the upper and lower right lung anderson, worse in the lower lung anderson. Patient has mild end expiratory wheezing throughout despite reporting he is using his inhaler, most recently at 8 PM approximately 3 and half hours prior to arrival. No peripheral edema. Differential diagnosis includes but is not limited to pneumonia, lung abscess, pleural effusion, empyema, COPD exacerbation, fluid overload, ACS. Based on these concerns, I ordered serum labs, cardiac workup, chest x-ray, VBG. ECG personally interpreted demonstrates sinus rhythm with occasional PVCs, rate 84, normal MN and QTc, normal axis, no STEMI. Labs personally reviewed demonstrate mild prerenal azotemia, patient is now developing a leukocytosis with WBC 11.6 that was not present a few days ago when he was initially evaluated in our ER. He does not have any anemia, platelets normal, PT/INR nonactionable, VBG with normal pH, no hypercarbia, normal lactic. Patient is receiving IV fluids, Rocephin for concerns of pneumonia clinically especially with increasing white count, and DuoNebs for treatment of shortness of breath BNP elevated at 194 but patient does not have findings of pulmonary edema on x- ray, no peripheral edema. Will not intervene on this at this time. Chest x-ray personally interpreted demonstrates findings in the right lung that are consistent with the CT findings of an abnormal appearing mass, there is not an obvious lobar infiltrate, however there are interstitial changes that I cannot rule out pneumonia. Radiology read pending. After patient completed treatments in the ER, he was reassessed and felt significantly better, his oxygen saturation was 98 to 100% on room air. He ambulated around the ER without desaturating and felt significantly improved, much less short of breath. I prescribed Augmentin for outpatient management of community-acquired pneumonia. He is already on azithromycin which is appropriate co-therapy. Patient was given instructions on symptomatic management, follow up instructions, and return precautions for the emergency department. Patient indicated understanding and was discharged in stable condition. Critical Care Critical Care Time Critical Care Time: No
[2024-02-25 23:40] LABS: Lactate Venous 1.3 mmol/L (0.4-2.0); VBG Base Excess -2.9 mmol/L (-2.4-2.3); VBG HCO3 21.9 mmol/L (23-30); VBG Oxygen Saturation 67.9 % (50-70); VBG PCO2 35.7 mmol/L (35-51); VBG PH 7.41 mmol/L (7.31-7.41)
[2024-02-25] MEDS: IPRATROPIUM/ALBUTEROL 3 ML NEB 9 ML IH (23:43)
[2024-02-25 23:45] VITALS: PULSE 68; PULSE 80
[2024-02-25 23:46] LABS: Basophils % 0.3 % (0.1-2.0); Eosinophils % 0.2 % (0.1-12.0); Hematocrit 44.9 % (42.0-52.0); Hemoglobin 14.8 g/dL (14.1-18.0); Lymphocytes # 1.8 K/mm3 (0.7-4.5); Lymphocytes % 15.8 % (10-50); Mean Corpuscular Hemoglobin 30.1 pg (27.0-31.2); Mean Corpuscular Volume 91.3 fl (80-94); Mean Platelet Volume 10.6 fl (7.4-10.4); Monocytes # 0.8 K/mm3 (0.1-1.0); Neutrophils # 8.8 K/mm3 (1.8-7.8); Neutrophils % 76.4 % (37.0-80.0); Platelet Count 252 K/mm3 (142-424); Red Blood Count 4.92 M/mm3 (4.60-6.20); Red Cell Distribution Width 12.6 % (11.5-17.5); White Blood Count 11.6 K/mm3 (4.8-10.8)
[2024-02-25 23:53] LABS: INR 0.87 (0.9-1.1); Prothrombin Time 9.9 seconds (10.1-12.5)
[2024-02-25 23:56] LABS: Alanine Aminotransferase 18 U/L (12-78); Albumin Level 4.5 g/dl (3.5-5.0); Albumin/Globulin Ratio 1.6 (1.1-1.8); Alkaline Phosphatase 80 U/L (38-126); Anion Gap 13.2 mEq/L (5-15); Aspartate Amino Transferase 33 U/L (17-59); Bilirubin,Total 0.9 mg/dl (0.2-1.3); Blood Urea Nitrogen 24 mg/dl (9-20); Calcium 9.7 mg/dl (8.4-10.2); Carbon Dioxide 24 mmol/L (22.0-30.0); Chloride 103 mmol/L (98-107); Creatinine Clearance Estimated 72 mL/min (50-200); Estimated Glomerular Filt Rate 82 ml/min (>60); GFR (African American) 100 ML/MIN (>60); Globulin 2.8 g/dL (1.3-3.2); Glucose 97 mg/dl (74-100); Potassium 4.2 mmoL/L (3.5-5.1); Sodium 136 mmol/L (136-145); Total Protein,Serum 7.3 g/dl (6.3-8.2)
[2024-02-26 00:05] LABS: NT Pro Brain Natriuretic Pep. 194 pg/mL (0-125)
[2024-02-26 00:09] LABS: Troponin I < 0.01 ng/ml (0.00-0.034)
[2024-02-26] MEDS: CEFTRIAXONE 1 GM 1 GM in 0.9 % SODIUM CHLORIDE 50 ML IV (01:05)
[2024-02-26] MEDS: LACTATED RINGERS 1000ML 1,000 ML 999 ML IV (01:06)
[2024-02-26 02:22] VITALS: BP 160/71; PULSE 70; RESP 18; TEMP 36.6; O2SAT 99
--- NOTE | 2024-02-26 02:27 | PC.NURSE ---
Pt ambulated while monitoring SaO2 Pt ambulates well Gait steady. SaO2 never lower than 97% MD updated Pt denies shortness of breath at this time
[2024-02-26 07:39] LABS: HIV Combo NEGATIVE (Negative)
== END 2024-02-26 02:27 | disposition home or self-care (01) ==
PROVIDERS: Emergency Provider Emergency Medicine
DX: J18.9 Pneumonia, unspecified organism (principal); R06.02 Shortness of breath; R05.9 Cough, unspecified
CPT/HCPCS: 71046; 80053; 82803; 83880; 84484; 85025; 85610; 87389; 93005; 96361; 96365; 99284; J0696; J7120; J7620

== ENCOUNTER 2024-03-20 20:02 | Emergency (ER) | payer MEDICARE, OTHER, SELFPAY ==
[2024-03-20 20:03] VITALS: BP 203/94; PULSE 94; RESP 26; TEMP 36.6; O2SAT 99; BMI 22.6
--- NOTE | 2024-03-20 20:23 | ECG_ITS ---
APPROVED REPORT Exam: Resting ECG HR:92 bpm ECG Measurements Heart Rate 92 AXES QRSd 101 QRS 73 QT 349 T 90 QTc 399 Conclusion Sinus rhythm Incomplete right bundle branch block Electronically signed by : MARY BAUMANN, 03/20/2024 22:34:38
--- NOTE | 2024-03-20 20:24 | XR_ITS ---
PROCEDURE INFORMATION: Exam: XR Chest Exam date and time: 03/20/2024 8:22 PM Age: 73 years old Clinical indication: Cough and shortness of breath; Additional info: SOA, cough productive, copd TECHNIQUE: Imaging protocol: Radiologic exam of the chest. Views: 2 views. COMPARISON: CR XR CHEST 2V 02/26/2024 12:34 AM FINDINGS: Tubes, catheters and devices: Surgical clips overlie the jayjay unchanged from prior exam. Lungs: There are severe centrilobular emphysematous changes of the lungs with an apical gradient. No consolidations or pleural effusions. Pleural spaces: See Lungs finding. Heart/Mediastinum: Unremarkable. No cardiomegaly. Bones/joints: Unremarkable. IMPRESSION: No acute findings.
--- NOTE | 2024-03-20 20:24 | [facility].EDCP ---
Discharge Plan Disposition Patient Disposition: Home, Self-Care Prescriptions Prescriptions: New ipratropium-albuterol 0.5 mg-3 mg(2.5 mg base)/3 mL solution for nebulization 3 ml inhalation Q4H PRN (Reason: shortness of breath) Qty: 180 2RF Rx Instructions: until breathing returns to target peak flow/parameters prednisone 20 mg tablet 40 mg PO DAILY 5 Days Qty: 10 0RF doxycycline monohydrate 100 mg capsule 100 mg PO BID 5 Days Qty: 10 0RF No Action azithromycin 250 MG tablet 250 mg PO DIRECTED Qty: 6 0RF Rx Instructions: Take two (2) tablets on day #1, then one (1) tablet day #2 thru #5 amoxicillin-pot clavulanate 875-125 mg tablet 1 tab PO BID 7 Days Qty: 14 0RF prednisone 50 mg tablet 50 mg PO DAILY 5 Days Qty: 5 0RF azithromycin [Zithromax Z-Pelon] 250 mg tablet 250 mg PO DAILY 4 Days Qty: 4 0RF Rx Instructions: start on day 2 of therapy Referrals Follow up/Referrals: Maria L Dunn APRN [Primary Care Provider] - See instructions Activity Restrictions/Add. Instructions Additional Instructions/Restrictions: Call your family doctor to establish care for this visit to the emergency department and schedule follow-up within 48 hours to ensure improvement. If you have any worsening of your condition or any other concerning signs or symptoms, return to the emergency department or your primary care doctor for further evaluation. Prednisone each morning for the next 5 days. Doxycycline twice daily for the next 5 days. Clinical Impressions Clinical Impression: Acute exacerbation of chronic obstructive pulmonary disease Print Language Print Language: Maltese Discharge ED Provider: Gerardo Fernandez HPI General Chief Complaint: Shortness of Breath/Dyspnea Stated Complaint: SOA congestion Time Seen by Provider: 03/20/24 20:15 History of Present Illness HPI narrative: Please note that above description of symptoms, in this electronic medical record under categorization of recalled from ER triage doctor by RN are reflective of an initial nursing assessment, however, is not reflective of my full history and physical exam that was personally taken and clarified. Consequentially, this preceding description of symptoms, which may include the patient's categorized chief complaint in the EMR, do not reflect my personal clinical impression, and the ultimate description of history of present illness and patient stated complaints should be deferred to this section of the note. Unless stated otherwise or congruent with this section of the note, additional signs, symptoms, or incongruence should be interpreted as inaccurate with my clinical impression. Related Data Previous Rx's ?Medication ?Instructions ?Recorded azithromycin 250 mg tablet 250 mg PO DIRECTED #6 tabs 03/15/20 azithromycin 250 mg tablet 250 mg PO DAILY COPD Exacerbation 02/23/24 (Zithromax Z-Pelon) 4 days #4 tabs prednisone 50 mg tablet 50 mg PO DAILY COPD Exacerbation 5 02/23/24 days #5 tabs amoxicillin 875 mg-potassium 1 tab PO BID 7 days #14 tabs 02/26/24 clavulanate 125 mg tablet doxycycline monohydrate 100 mg 100 mg PO BID 5 days #10 caps 03/20/24 capsule ipratropium 0.5 mg-albuterol 3 mg 3 ml inhalation Q4H PRN shortness 03/20/24 (2.5 mg base)/3 mL nebulization of breath #180 mL soln prednisone 20 mg tablet 40 mg (2 x 20 mg) PO DAILY 5 days 03/20/24 #10 tabs Allergies Allergy/AdvReac Type Severity Reaction Status Date / Time No Known Allergies Allergy Verified 03/15/20 11:06 [facility] Disclaimer: The information contained in this section may have been updated after the patient was seen, as this information can be updated by other users. Social History (Updated 02/23/24 @ 11:57 by Guido Palma MD) Smoking Status: Former smoker alcohol intake: never current occupational status: other Travel in the last 8 weeks: None Have you lived/traveled outside [place] in past 30 days?: No Contact w/someone who lives/traveled outside [place] past 30 days?: No Exposure to someone with infectious disease in past 14 days?: No Do you have a fever (greater than 100.4 F or 38 C)?: No Have you tested positive for COVID-19: No Exposed to someone with COVID-19 in past 14 days?: No Do you have a sore throat?: No Do you have a cough?: Yes Do you have any weakness?: No Do you have any diarrhea?: No Are you experiencing any unusual bleeding?: No Do you have any muscle aches/pain?: No Do you have any abdominal pain?: No Are you experiencing loss of taste or smell?: No Other Medical History Have you received the Flu Vaccine for this season: No Have you received the Pneumonia Vaccine: No ROS Obtained: Yes All systems reviewed & no additional complaints except as documented Physical Exam General General appearance: alert and in distress (Moderate respiratory distress) Neck Neck exam: Present trachea midline Chest Chest inspection: Present normal inspection and symmetric chest wall rise Respiratory Respiratory exam: Present wheezes, accessory muscle use, prolonged expiratory phase and other (Tachypnea, prolonged expiratory phase, inspiratory and expiratory wheezes); Absent respiratory distress or stridor Cardiovascular Cardiovascular exam: Present regular rate, normal rhythm and other (Pulses equal and symmetric in upper and lower extremities) Extremities Exam Extremities exam: Absent edema Neurological Exam Neurological exam: Present alert, oriented X3 and CN II-XII intact Skin Skin exam: Present warm and dry; Absent cyanosis, diaphoresis or pallor HEART Score HEART Score HEART Score assessment performed?: Yes HEART Score: 4 Critical Care Critical Care Time Critical Care Time: No Medical Decision Making Medical Records Medical records reviewed: Yes I reviewed the patient's medical records. Judd Inquiry Pt receiving controlled substance: No Judd was queried for this patient: No Vital Signs Vital Signs: 03/20/24 20:03 03/20/24 20:50 03/20/24 20:50 Temperature 97.9 F Temperature Source Oral Pulse Rate 81 Pulse Rate [Left] 94 H Respiratory Rate 26 H Blood Pressure [Right Arm] 203/94 H Blood Pressure Mean [Right Arm] 130 02 Sat by Pulse Oximetry 99 100 Oxygen Delivery Method Nasal Cannula Oxygen Flow Rate (LPM) 2 03/20/24 20:50 Temperature Temperature Source Pulse Rate 84 Pulse Rate [Left] Respiratory Rate Blood Pressure [Right Arm] Blood Pressure Mean [Right Arm] 02 Sat by Pulse Oximetry Oxygen Delivery Method Oxygen Flow Rate (LPM) Lab Data Labs: Lab Results 03/20/24 20:23: WBC 6.6, RBC 4.92, Hgb 14.9, Hct 44.2, MCV 89.8, MCH 30.3, MCHC 33.7, RDW 12.0, Plt Count 263, MPV 10.6 H, Neut % (Auto) 72.5, Lymph % (Auto) 17.5, [place] % (Auto) 8.3, Eos % (Auto) 0.3, Baso % (Auto) 0.9, Neut # (Auto) 4.8, Lymph # (Auto) 1.2, [place] # (Auto) 0.6, Eos # (Auto) 0.0, Baso # (Auto) 0.1, PT 9.8, INR 0.88 L, APTT 25.2, D-Dimer 0.88 H, Sodium 134 L, Potassium 4.5, Chloride 101, Carbon Dioxide 25, Anion Gap 12.5, BUN 14, Creatinine 0.90, Estimated Creat Clear 72, Estimated GFR 82, Est GFR ( Amer) 100, Glucose 101 H, Lactate 2.1, Calcium 9.9, Total Bilirubin 0.7, AST 27, ALT 19, Alkaline Phosphatase 89, Troponin I < 0.01, NT-Pro-B Natriuret Pep 73.3, Total Protein 7.5, Albumin 4.6, Globulin 2.9, Albumin/Globulin Ratio 1.6 03/20/24 20:25: VBG pH 7.41, VBG pCO2 40.3, VBG pO2 23.7 L, VBG HCO3 24.7, VBG Total CO2 25.9, VBG O2 Saturation 41.5 L, VBG Base Excess 0.0, VBG Lactic Acid 1.8 03/20/24 20:23 03/20/24 20:23 Response Orders (Tests/Meds): ED MEDICATIONS Discontinued Medications Generic Name Dose Route Start Last Admin Trade Name Freq PRN Reason Stop Dose Admin Albuterol/Ipratropium 9 ml 03/20/24 20:24 03/20/24 20:32 Ipratropium/Albuterol 3 Ml Neb IH 03/20/24 20:25 9 ml ONCE ONE Administration Magnesium Sulfate 2 gm in 50 mls @ 50 mls/hr 03/20/24 20:24 03/20/24 20:31 Magnesium Sulfate 2gm/50ml Premix IV 03/20/24 21:23 50 mls/hr ONCE ONE Administration Methylprednisolone Sodium Succinate 125 mg 03/20/24 20:24 03/20/24 20:32 Methylprednisolone Sod Succ 125mg Vial IV 03/20/24 20:25 125 mg ONCE ONE Administration ORDERS Category Date Time Status CXR 2 view (NOT portable) [XR chest 2V] Stat Exams 03/20/24 20:24 Completed Complete Blood Count Auto Diff Stat Lab 03/20/24 20:23 Completed Comprehensive Metabolic Panel Stat Lab 03/20/24 20:23 Completed D-Dimer Stat Lab 03/20/24 20:23 Completed HIV Combo Routine Lab 03/20/24 20:39 Ordered Hepatitis C Ab Qual. W/ RFX Routine Lab 03/20/24 20:39 Ordered Lactic Acid Stat Lab 03/20/24 20:23 Completed NT Pro Brain Natriuretic Pep. Stat Lab 03/20/24 20: Completed PT INR [Prothrombin Time INR] Stat Lab 03/20/24 20: Completed PTT [Activated Partial Thrombo Time] Stat Lab 03/20/24 20: Completed Troponin I Q3H Lab 03/20/24 23:30 Ordered Troponin I Q3H Lab 03/21/24 02:30 Ordered Troponin I Stat Lab 03/20/24 20: Completed Blood Culture Stat Micro 03/20/24 20: Ordered Venous Blood Gas Stat RT 03/20/24 20:25 Completed MDM Narrative Medical Decision Narrative: This is a 73-year-old male presenting with shortness of breath. Patient states that he has been feeling short of breath with productive cough for the last 3 to 4 days. States that he was diagnosed with right lower lobe pneumonia in January, states that he felt better since that time, but this feels similar here. States that he has had cough productive of thick, white sputum which is new for him. Body aches, but no subjective or objective fevers or chills, nausea, vomiting, chest pain, etc. No lower extremity edema. They have been trying albuterol nebulizers at home, but minimal relief, so came in because patient felt like I was suffocating. . It should be noted the patient has history of COPD, not currently smoking or on home oxygen, right upper lobectomy, left lower lobectomy which is likely contributing to patient's current clinical status history was obtained via conversation with patient and . On arrival, patient hemodynamically stable, alert, oriented x4, appropriate, GCS 15, moving all extremities spontaneously, pupils equal and reactive to light. Full physical exam performed and significant for 73-year-old male in mild to moderate respiratory distress. Speaking in partial sentences, inspiratory and expiratory wheezes, prolonged expiratory phase. Decreased breath sounds with associated rales right lower lobe. Cardiac [place] without murmurs gallops rubs. No lower extremity edema differential includes COPD exacerbation, pneumonia, pneumothorax, PE,. Patient was given DuoNebs, Solu-Medrol, magnesium for symptomatic management and correction of underlying abnormalities. Patient placed on continuous cardiac monitoring and continuous pulse ox with initial blood pressure 203/94, heart rate 84, saturation 100% on room air, breathing 26-30 times per minute. Independent interpretation of EKG shows sinus rhythm 92 bpm with narrow QRS, QTc 399 with normal axis. No acute ischemic change. Workup independently interpreted and significant for nonactionable CBC or chemistry. VBG nonactionable. Coags normal, dimer mildly elevated 0.88, but years criteria negative. Troponin negative, BNP negative. On independent interpretation of imaging, patient has no acute intrathoracic findings or consolidation. See radiology read for full review of final results. On reevaluation, patient states he is feeling much better, breathing much easier. Supplemental oxygen was removed and patient no longer tachypneic. Repeat lung exam much improved with minimal inspiratory and expiratory wheezes at this time. Given patient presentation, workup, history, this most likely represents mild COPD exacerbation. Initial dose of doxycycline given here. Meds called into pharmacy. Because patient at baseline without signs or symptoms of clinical decompensation, deemed appropriate for discharge. Results were relayed to patient who voiced understanding and were agreeable to outpatient management and follow up. I discussed my clinical impression with patient and answered all questions. At this time, the evidence for any other entities in the differential is insufficient to warrant any further testing or ED observation. This was explained as well. Advisory was given that persistent or worsening symptoms require further evaluation. I confirmed the understanding of this discussion. Escort Blind disclaimer Much of this encounter note is an electronic healthcare management consultant spoken language to printed text. Electronic healthcare management consultant of the spoken language may permit errors. Although I have reviewed the note, some errors may still exist.
[2024-03-20] MEDS: MAGNESIUM SULFATE IN WATER 2 GM/50 ML PIGGYBACK IV (20:31)
[2024-03-20] MEDS: METHYLPREDNISOLONE SOD SUCC 125MG VIAL 125 MG IV (20:32)
[2024-03-20] MEDS: IPRATROPIUM/ALBUTEROL 3 ML NEB 9 ML IH (20:32)
[2024-03-20 20:34] LABS: Lactate Venous 1.8 mmol/L (0.4-2.0); VBG HCO3 24.7 mmol/L (23-30); VBG Oxygen Saturation 41.5 % (50-70); VBG PCO2 40.3 mmol/L (35-51); VBG PH 7.41 mmol/L (7.31-7.41); VBG PO2 23.7 mmol/L (28-40); VBG Total CO2 25.9 mmol/L (23-27)
[2024-03-20 20:38] LABS: Basophils # 0.1 K/mm3 (0-0.2); Basophils % 0.9 % (0.1-2.0); Eosinophils % 0.3 % (0.1-12.0); Hematocrit 44.2 % (42.0-52.0); Hemoglobin 14.9 g/dL (14.1-18.0); Lymphocytes # 1.2 K/mm3 (0.7-4.5); Lymphocytes % 17.5 % (10-50); Mean Corpuscular HGB Conc 33.7 g/dL (31.8-35.4); Mean Corpuscular Hemoglobin 30.3 pg (27.0-31.2); Mean Corpuscular Volume 89.8 fl (80-94); Mean Platelet Volume 10.6 fl (7.4-10.4); Monocytes # 0.6 K/mm3 (0.1-1.0); Monocytes % 8.3 % (1.7-9.3); Neutrophils # 4.8 K/mm3 (1.8-7.8); Neutrophils % 72.5 % (37.0-80.0); Platelet Count 263 K/mm3 (142-424); Red Blood Count 4.92 M/mm3 (4.60-6.20); White Blood Count 6.6 K/mm3 (4.8-10.8)
[2024-03-20 20:47] LABS: Albumin Level 4.6 g/dl (3.5-5.0); Chloride 101 mmol/L (98-107); Sodium 134 mmol/L (136-145)
[2024-03-20 20:48] LABS: Potassium 4.5 mmoL/L (3.5-5.1)
[2024-03-20 20:50] VITALS: PULSE 81; PULSE 84; O2SAT 100
[2024-03-20 20:50] LABS: Alanine Aminotransferase 19 U/L (12-78); Albumin/Globulin Ratio 1.6 (1.1-1.8); Alkaline Phosphatase 89 U/L (38-126); Anion Gap 12.5 mEq/L (5-15); Aspartate Amino Transferase 27 U/L (17-59); Bilirubin,Total 0.7 mg/dl (0.2-1.3); Blood Urea Nitrogen 14 mg/dl (9-20); Carbon Dioxide 25 mmol/L (22.0-30.0); Creatinine Clearance Estimated 72 mL/min (50-200); Estimated Glomerular Filt Rate 82 ml/min (>60); GFR (African American) 100 ML/MIN (>60); Globulin 2.9 g/dL (1.3-3.2); Total Protein,Serum 7.5 g/dl (6.3-8.2)
[2024-03-20 20:51] LABS: Calcium 9.9 mg/dl (8.4-10.2); Glucose 101 mg/dl (74-100)
[2024-03-20 20:52] LABS: Lactic Acid 2.1 mmol/L (0.7-2.1)
[2024-03-20 20:53] LABS: Activated Partial Thrombo Time 25.2 seconds (22.5-28.5); INR 0.88 (0.9-1.1); Prothrombin Time 9.8 seconds (9.2-12.1)
[2024-03-20 21:00] LABS: NT Pro Brain Natriuretic Pep. 73.3 pg/mL (0-125)
[2024-03-20 21:04] LABS: Troponin I < 0.01 ng/ml (0.00-0.034)
[2024-03-20 21:08] LABS: D-Dimer 0.88 ug/mL (0.0-0.5)
[2024-03-20 22:26] VITALS: BP 144/72; PULSE 87; RESP 18; TEMP 37; O2SAT 98
[2024-03-20] MEDS: DOXYCYCLINE HYCL 100 MG TABLET PO (22:26)
[2024-03-20 23:31] LABS: HIV Combo NEGATIVE (Negative)
[2024-03-20 23:39] LABS: Hepatitis C Ab Qual. W/ RFX NEGATIVE (Negative)
== END 2024-03-20 22:36 | disposition home or self-care (01) ==
PROVIDERS: Emergency Provider Emergency Medicine; PCP Nurse Practitioner
DX: J44.1 Chronic obstructive pulmonary disease with (acute) exacerbation (principal); R06.02 Shortness of breath; R06.00 Dyspnea, unspecified; R09.81 Nasal congestion; R05.9 Cough, unspecified; M79.10 Myalgia, unspecified site
CPT/HCPCS: 71046; 80053; 82803; 83605; 83880; 84484; 85025; 85378; 85610; 85730; 86803; 87040; 87389; 93005; 96365; 96374; 99284; J2919; J3475; J7620

== ENCOUNTER 2024-03-23 09:02 | Emergency (ER) | payer MEDICARE, OTHER, SELFPAY ==
[2024-03-23] VITALS (9 sets, daily range): BP systolic 156–185; BP diastolic 79–94; PULSE 61–108; RESP 13–22; TEMP 36.5–36.6; O2SAT 97–100; BMI 14.2
--- NOTE | 2024-03-23 09:07 | ECG_ITS ---
APPROVED REPORT Exam: Resting ECG HR:85 bpm ECG Measurements Heart Rate 85 AXES IN 163 P 80 QRSd 107 QRS 78 QT 328 T 66 QTc 370 Conclusion SINUS RHYTHM WITH SINUS ARRHYTHMIA INCOMPLETE RIGHT BUNDLE BRANCH BLOCK [90+ ms QRS DURATION, TERMINAL R IN V1/V2, 40+ ms S IN I/aVL/V4/V5/V6] No STEMI Electronically signed by : YINA COSTA, 03/26/2024 06:46:00
--- NOTE | 2024-03-23 09:13 | ED_ITS ---
Discharge Plan Disposition Patient Disposition: Home, Self-Care Condition: Good Prescriptions Prescriptions: No Action azithromycin 250 MG tablet 250 mg PO DIRECTED Qty: 6 0RF Rx Instructions: Take two (2) tablets on day #1, then one (1) tablet day #2 thru #5 amoxicillin-pot clavulanate 875-125 mg tablet 1 tab PO BID 7 Days Qty: 14 0RF prednisone 50 mg tablet 50 mg PO DAILY 5 Days Qty: 5 0RF azithromycin [Zithromax Z-Pelon] 250 mg tablet 250 mg PO DAILY 4 Days Qty: 4 0RF Rx Instructions: start on day 2 of therapy ipratropium-albuterol 0.5 mg-3 mg(2.5 mg base)/3 mL solution for nebulization 3 ml inhalation Q4H PRN (Reason: shortness of breath) Qty: 180 2RF Rx Instructions: until breathing returns to target peak flow/parameters prednisone 20 mg tablet 40 mg PO DAILY 5 Days Qty: 10 0RF doxycycline monohydrate 100 mg capsule 100 mg PO BID 5 Days Qty: 10 0RF Referrals Follow up/Referrals: Maria L Dunn APRN [Primary Care Provider] - See instructions Activity Restrictions/Add. Instructions Additional Instructions/Restrictions: Please strip picker the prescription for the doxycycline antibiotic and take it as directed. As we discussed, please take the course of steroids, use the inhaler daily as prescribed, and use the nebulizer solution as needed if you are feeling short of breath. If you need to use the nebulizer solution, please use it every 4 hours as instructed. Please return with any new or worsening symptoms and follow-up with your primary care doctor Clinical Impressions Clinical Impression: Adenopathy, cervical Print Language Print Language: [place] Island[place] Discharge ED Provider: Chico Bolivar General Adult HPI General Chief complaint: Shortness of Breath/Dyspnea Stated complaint: COPD, SOA, swollen lymphnodes Time Seen by Provider: 03/23/24 09:13 History of Present Illness HPI narrative: Patient is a 73-year-old male with history of COPD. He reports swelling in the bilateral ventral area of his neck, it was gradual in onset, he denies any significant difficulty swallowing, denies any difficulty tolerating secretions, symptoms were first noticed within the past 24 hours, no previous therapies. No associated fevers. No sore throat. He was recently seen at this emergency department and diagnosed with COPD exacerbation however has not yet picked up antibiotics Please note that above description of symptoms, in this electronic medical record under categorization of recalled from ER triage doctor by RN are reflective of an initial nursing assessment, however, is not reflective of my full history and physical exam that was personally taken and clarified. Consequentially, this preceding description of symptoms, which may include the patient's categorized chief complaint in the EMR, do not reflect my personal clinical impression, and the ultimate description of history of present illness and patient stated complaints should be deferred to this section of the note. Unless stated otherwise or congruent with this section of the note, additional signs, symptoms, or incongruence should be interpreted as inaccurate with my clinical impression. Related Data Previous Rx's ?Medication ?Instructions ?Recorded azithromycin 250 mg tablet 250 mg PO DIRECTED #6 tabs 03/15/20 azithromycin 250 mg tablet 250 mg PO DAILY COPD Exacerbation 02/23/24 (Zithromax Z-Pelon) 4 days #4 tabs prednisone 50 mg tablet 50 mg PO DAILY COPD Exacerbation 5 02/23/24 days #5 tabs amoxicillin 875 mg-potassium 1 tab PO BID 7 days #14 tabs 02/26/24 clavulanate 125 mg tablet doxycycline monohydrate 100 mg 100 mg PO BID 5 days #10 caps 03/20/24 capsule ipratropium 0.5 mg-albuterol 3 mg 3 ml inhalation Q4H PRN shortness 03/20/24 (2.5 mg base)/3 mL nebulization of breath #180 mL soln prednisone 20 mg tablet 40 mg (2 x 20 mg) PO DAILY 5 days 03/20/24 #10 tabs Allergies Allergy/AdvReac Type Severity Reaction Status Date / Time No Known Allergies Allergy Verified 03/15/20 11:06 [facility] Disclaimer: The information contained in this section may have been updated after the patient was seen, as this information can be updated by other users. Social History (Updated 02/23/24 @ 11:57 by Guido Palma MD) Smoking Status: Current every day smoker alcohol intake: never current occupational status: other Travel in the last 8 weeks: None Have you lived/traveled outside US in past 30 days?: No Contact w/someone who lives/traveled outside US past 30 days?: No Exposure to someone with infectious disease in past 14 days?: No Do you have a fever (greater than 100.4 F or 38 C)?: No Have you tested positive for COVID-19: No Exposed to someone with COVID-19 in past 14 days?: No Do you have a sore throat?: No Do you have a cough?: No Do you have any weakness?: No Do you have any diarrhea?: No Are you experiencing any unusual bleeding?: No Do you have any muscle aches/pain?: No Do you have any abdominal pain?: No Are you experiencing loss of taste or smell?: No Other Medical History Have you received the Flu Vaccine for this season: No Have you received the Pneumonia Vaccine: No ROS Obtained: Yes other As per HPI Physical Exam General General appearance: alert and in no apparent distress Head Head exam: atraumatic and normocephalic Eye Eye exam: Present normal appearance Neck Neck exam: Present normal inspection Chest Chest inspection: Present normal inspection and symmetric chest wall rise Respiratory Respiratory exam: Present normal lung sounds bilaterally; Absent respiratory distress Cardiovascular Cardiovascular exam: Present regular rate and normal rhythm Abdominal Exam Abdominal exam: Present soft Neurological Exam Neurological exam: Present alert and oriented X3 Psychiatric Psychiatric exam: Present normal affect and normal mood Skin Skin exam: Present warm and dry Other Other exam information: No respiratory distress, area of concern most consistent with cervical adenopathy, no trismus, no dysphonia Medical Decision Making Medical Records Medical records reviewed: Yes I reviewed the patient's medical records. Screening: Per USPSTF and CDC recommendations, given the prevalence of disease in our region, it is our hospital?s policy to screen for HIV and viral Hepatitis for all patients aged 18 and over and those with ongoing risk factors. Judd Inquiry Pt receiving controlled substance: No Vital Signs: 03/23/24 09:03 03/23/24 09:08 03/23/24 09:30 Temperature 97.7 F Temperature Source Oral Pulse Rate 73 Pulse Rate [Left Radial] 108 H Respiratory Rate 18 17 13 Blood Pressure 185/94 H 161/80 H Blood Pressure [Right Arm] 185/94 H Blood Pressure Mean [Right Arm] 124 Blood Pressure Source Blood Pressure Position 02 Sat by Pulse Oximetry 99 100 Oxygen Delivery Method Room Air Room Air Room Air 03/23/24 10:00 03/23/24 10:15 03/23/24 11:00 Temperature Temperature Source Pulse Rate 71 66 65 Pulse Rate [Left Radial] Respiratory Rate 13 16 22 Blood Pressure 169/89 H 163/86 H Blood Pressure [Right Arm] Blood Pressure Mean [Right Arm] Blood Pressure Source Blood Pressure Position 02 Sat by Pulse Oximetry 99 98 99 Oxygen Delivery Method Room Air Room Air Room Air 03/23/24 11:30 03/23/24 12:15 03/23/24 12:52 Temperature 97.9 F Temperature Source Temporal Artery Scan Pulse Rate 62 61 76 Pulse Rate [Left Radial] Respiratory Rate 22 18 18 Blood Pressure 166/79 H 156/83 H 159/84 H Blood Pressure [Right Arm] Blood Pressure Mean [Right Arm] Blood Pressure Source Automatic Cuff Blood Pressure Position Sitting 02 Sat by Pulse Oximetry 99 100 Oxygen Delivery Method Room Air Room Air Room Air Lab Data Lab Results 03/23/24 09:20: WBC 7.3, RBC 4.85, Hgb 14.5, Hct 44.4, MCV 91.5, MCH 29.9, MCHC 32.7, RDW 12.2, Plt Count 249, MPV 11.0 H, Neut % (Auto) 74.8, Lymph % (Auto) 16.8, [place] % (Auto) 7.4, Eos % (Auto) 0.3, Baso % (Auto) 0.4, Neut # (Auto) 5.5, Lymph # (Auto) 1.2, [place] # (Auto) 0.5, Eos # (Auto) 0.0, Baso # (Auto) 0.0, Sodium 138, Potassium 4.4, Chloride 101, Carbon Dioxide 26, Anion Gap 15.4 H, BUN 13, Creatinine 0.80, Estimated Creat Clear 45, Estimated GFR 94, Est GFR ( Amer) 114, Glucose 97, Calcium 9.7, Total Bilirubin 0.9, AST 37 D, ALT 23, Alkaline Phosphatase 60, Total Protein 7.7, Albumin 4.6, Globulin 3.1, Albumin/Globulin Ratio 1.5, HCV Ab BALDEMAR w/Rflx PCR Qn Negative, HIV Ag/Ab Combo Qual Negative 03/23/24 10:21: SARS-CoV-2 (PCR) Not detected, Influenza A Untype (PCR) Not detected, Influenza Type B (PCR) Not detected 03/23/24 09:20 03/23/24 09:20 Orders (Tests/Meds): ED MEDICATIONS Discontinued Medications Generic Name Dose Route Start Last Admin Trade Name Freq PRN Reason Stop Dose Admin Iopamidol 75 ml 03/23/24 10:48 03/23/24 10:49 Iopamidol-370 (76%);100ml Bottle IV 03/23/24 10:49 75 ml ONCE ONE Administration Sodium Chloride 10 ml 03/23/24 10:48 03/23/24 10:49 Sodium Chloride 0.9% 10ml Syr (Rad Only) IV 04/22/24 10:47 10 ml NEEDED PRN Administration Maintain IV Site ORDERS Category Date Time Status CT soft tissue neck w con Stat Cat Scan 03/23/24 09:59 Completed XR chest 2V Stat Exams 03/23/24 09:59 Completed CBC w/Auto Diff [Complete Blood Count Auto Diff] Stat Lab 03/23/24 09:20 Completed CMP [Comprehensive Metabolic Panel] Stat Lab 03/23/24 09:20 Completed HIV Combo Stat Lab 03/23/24 09:20 Completed Hepatitis C Ab Qual. W/ RFX Stat Lab 03/23/24 09:20 Completed Rapid PCR Covid and Flu A/B Stat Lab 03/23/24 10:21 Completed Medical Decision Narrative: Patient with history and exam per above presenting for evaluation of concerns for lump in neck Diagnoses considered include cervical adenopathy most likely, however, will also evaluate for etiologies such as epiglottitis, deep space infection although physical exam overall benign ED workup and treatment included: ED MEDICATIONS Discontinued Medications Generic Name Dose Route Start Last Admin Trade Name Coryq PRN Reason Stop Dose Admin Iopamidol 75 ml 03/23/24 10:48 03/23/24 10:49 Iopamidol-370 (76%);100ml Bottle IV 03/23/24 10:49 75 ml ONCE ONE Administration Sodium Chloride 10 ml 03/23/24 10:48 03/23/24 10:49 Sodium Chloride 0.9% 10ml Syr (Rad Only) IV 04/22/24 10:47 10 ml NEEDED PRN Administration Maintain IV Site ORDERS Category Date Time Status CT soft tissue neck w con Stat Cat Scan 03/23/24 09:59 Completed XR chest 2V Stat Exams 03/23/24 09:59 Completed CBC w/Auto Diff [Complete Blood Count Auto Diff] Stat Lab 03/23/24 09:20 Completed CMP [Comprehensive Metabolic Panel] Stat Lab 03/23/24 09:20 Completed HIV Combo Stat Lab 03/23/24 09:20 Completed Hepatitis C Ab Qual. W/ RFX Stat Lab 03/23/24 09:20 Completed Rapid PCR Covid and Flu A/B Stat Lab 03/23/24 10:21 Completed Labs were independently interpreted by me, significant for no acute findings Imaging was independently visualized and interpreted by me, significant for no acute findings Please refer to radiology report for full details. My clinical impression at this time is most consistent with cervical adenopathy, patient will take antibiotics previously prescribed for prior concerns of COPD exacerbation I discussed my clinical impression with patient and answered all questions. At this time, the evidence for any other entities in the differential is insufficient to warrant any further testing or ED observation. This was explained to the patient. The patient was advised that persistent or worsening symptoms require further evaluation. Critical Care Critical Care Time Critical Care Time: No
--- NOTE | 2024-03-23 09:59 | CT_ITS ---
FINAL REPORT TECHNIQUE: Thin section axial CT images with coronal reformats were obtained through the neck after the administration of IV contrast. This study was performed with techniques to keep radiation doses as low as reasonably achievable (ALARA). Individualized dose reduction techniques using automated exposure control or adjustment of mA and/or kV according to the patient''s size were employed. CLINICAL HISTORY: dysphagia, reports neck swelling FINDINGS: There is mucoperiosteal thickening in the right maxillary sinus consistent with retention cyst or polyp. There is moderate vascular calcification at the right carotid bifurcation. No significant stenosis identified. There is no significant cervical mass or adenopathy. There are mild changes of centrilobular emphysema in the upper lobes. IMPRESSION: No mass or inflammatory process. Reviewed, Interpreted and Dictated by Zander Vargas MD Transcribed by Margot Adair Authenticated and [facility]
--- NOTE | 2024-03-23 09:59 | XR_ITS ---
FINAL REPORT CLINICAL HISTORY: soa, hx copd COMPARISON: CT dated 02/23/2024 FINDINGS: CHEST 2 VIEWS PA AND LATERAL The heart is normal in size. The mediastinum is unremarkable. The lungs are hyperinflated. There is linear density extending superiorly from the right hilum consistent with scarring. There is a spiculated density at the superior margin of this linear density. It appears to me similar to that of the prior chest CT. The left lung is clear. There is no pneumothorax. IMPRESSION: Linear and spiculated density right suprahilar region, cannot entirely exclude some recurrent neoplasia. Reviewed, Interpreted and Dictated by Zander Vargas MD Transcribed by Margot Adair Authenticated and [facility]
[2024-03-23 10:06] LABS: Basophils % 0.4 % (0.1-2.0); Eosinophils % 0.3 % (0.1-12.0); Hematocrit 44.4 % (42.0-52.0); Hemoglobin 14.5 g/dL (14.1-18.0); Lymphocytes # 1.2 K/mm3 (0.7-4.5); Lymphocytes % 16.8 % (10-50); Mean Corpuscular HGB Conc 32.7 g/dL (31.8-35.4); Mean Corpuscular Hemoglobin 29.9 pg (27.0-31.2); Mean Corpuscular Volume 91.5 fl (80-94); Monocytes # 0.5 K/mm3 (0.1-1.0); Monocytes % 7.4 % (1.7-9.3); Neutrophils # 5.5 K/mm3 (1.8-7.8); Neutrophils % 74.8 % (37.0-80.0); Platelet Count 249 K/mm3 (142-424); Red Blood Count 4.85 M/mm3 (4.60-6.20); Red Cell Distribution Width 12.2 % (11.5-17.5); White Blood Count 7.3 K/mm3 (4.8-10.8)
[2024-03-23 10:07] LABS: Albumin Level 4.6 g/dl (3.5-5.0); Chloride 101 mmol/L (98-107); Potassium 4.4 mmoL/L (3.5-5.1); Sodium 138 mmol/L (136-145)
[2024-03-23 10:09] LABS: Blood Urea Nitrogen 13 mg/dl (9-20); Creatinine Clearance Estimated 45 mL/min (50-200); Estimated Glomerular Filt Rate 94 ml/min (>60); GFR (African American) 114 ML/MIN (>60)
[2024-03-23 10:10] LABS: Alanine Aminotransferase 23 U/L (12-78); Albumin/Globulin Ratio 1.5 (1.1-1.8); Alkaline Phosphatase 60 U/L (38-126); Anion Gap 15.4 mEq/L (5-15); Aspartate Amino Transferase 37 U/L (17-59); Bilirubin,Total 0.9 mg/dl (0.2-1.3); Calcium 9.7 mg/dl (8.4-10.2); Carbon Dioxide 26 mmol/L (22.0-30.0); Globulin 3.1 g/dL (1.3-3.2); Glucose 97 mg/dl (74-100); Total Protein,Serum 7.7 g/dl (6.3-8.2)
[2024-03-23 10:28] LABS: Coronavirus 19, PCR Not Detected (NotDetected); Influenza A, PCR Not Detected (NotDetected); Influenza B, PCR Not Detected (NotDetected)
[2024-03-23] MEDS: IOPAMIDOL-370 (76%);100ML BOTTLE 75 ML IV (10:49)
[2024-03-23] MEDS: SODIUM CHLORIDE 0.9% 10ML SYR (RAD ONLY) 10 ML IV (10:49)
[2024-03-23 13:24] LABS: Hepatitis C Ab Qual. W/ RFX NEGATIVE (Negative)
[2024-03-23 13:26] LABS: HIV Combo NEGATIVE (Negative)
== END 2024-03-23 12:54 | disposition home or self-care (01) ==
PROVIDERS: Emergency Provider Emergency Medicine; PCP Nurse Practitioner
DX: R59.0 Localized enlarged lymph nodes (principal); J44.9 Chronic obstructive pulmonary disease, unspecified; R06.02 Shortness of breath; R06.00 Dyspnea, unspecified; F17.210 Nicotine dependence, cigarettes, uncomplicated
CPT/HCPCS: 70491; 71046; 80053; 85025; 86803; 87389; 87636; 93005; 99285; Q9967

== ENCOUNTER 2025-02-24 17:06 | Observation (INO) | payer MEDICARE, OTHER, SELFPAY ==
--- OUTSIDE RECORDS SUMMARY | 2024-12-25 08:30 | XMS_ITS | Encounter Summary ---
Author Organization [employer] ([place], [place], [place], [place], [place]) Address [address] [place] [address] Care Team Providers Care Lab Intern Name Role Phone Maria L Dunn NP Primary Care Provider [phone] Reason for Referral * CAT Scan (Routine) - Closed Specialty Diagnoses / Procedures Referred By Mir hurst Referred To Contact Radiology Diagnoses History of adenocarcinoma of lung Procedures CT chest with IV contrast Ash Mo MD [address] [place] [phone] Phone: tel: fax:[phone] [facility] [address] [place] [phone] Phone: tel: fax: Referral ID Status Reason Start Date Expiration Date Visits Re quested Visits Authorized [id number] Closed 12/14/2024 12/14/2025 1 1 Reason for Visit * CAT Scan (Routine) - Closed Specialty Diagnoses / Procedures Referred By Mir hurst Referred To Contact Radiology Diagnoses History of adenocarcinoma of lung Procedures CT chest with IV contrast Ash Mo MD [address] [place] [address] [place] [phone] Phone: tel: fax: [facility] [address] [place] [address] Phone: tel: fax: Referral ID Status Reason Start Date Expiration Date Visits Re quested Visits Authorized [id number] Closed 12/14/2024 12/14/2025 1 1 Encounter Details Date Type Department Care Team (Latest Contact Info) Description 12/25/2024 9:30 AM EDT - 12/25/2024 11:59 PM EDT Hospital Encounter [facility] [address] [place] [address] Ash Mo MD [address] [facility] [address] [place] [address] History of adenocarcinoma of lung Discharge Disposition: Home or Self Care Social History Tobacco Use Types Packs/Day Years Used Date Smoking Tobacco: Former Cigarettes 2 53 1 - 2014 Smokeless Tobacco: Never Alcohol Use Standard Drinks/Week Comments Yes 21 (1 standard drink = 0.6 oz pu re alcohol) 3-4 medicine cup shots/night Family and Community Support Answer [facility] Recorded Help with Day to Day Activities Not on file 08/20/2023 Feeling Lonely or Isolated Not on file 08/19 Educational Attainment Answer Date Sebastian rded Speak language other than Swedish at home Not on file 08/20/2023 Want help with school or training Not on file 08/20/2023 Substance Use Answer Date Recorded Used prescription meds for non-medical reasons N ot on file 08/20/2023 Used illegal drugs past 12 months Not on file 08/20/2023 Sex and Gender Information Value Date Recorded Sex Assigned at Not on file Legal Sex Male 9:19 AM CDT Gender Identity Not on file Sexual Orientation Not on file documented as of this encounter Medications at Time of Discharge albuterol 2.5 mg /3 mL (0.083 %) nebulizer solution Inhale 3 mLs (2.5 mg total) by nebulization 4 times a day. 02/28/2024 documented as of this encounter Plan of Treatment Upcoming Encounters Date Type Department Care Team (Late st Contact Info) Description 07/11/2025 10:15 AM EDT Office Visit [facility] [place] [address] [facility] [address] [place] [address] Ash Mo MD [address] [facility] [address] [place] [address] documented as of this encounter Procedures Procedure Name Priority Date/Time Associated Diagnosis Comments CT CHEST WITH IV CONTRAST Routine 12/25/2024 9:45 AM EDT History of adenocarcinoma of lung POCT-CREATININE NOVA Routine 12/25/2024 9:37 AM EDT documented in this encounter Results * CT chest with IV contrast (12/25/2024 9:45 AM EDT) Anatomical Region Laterality Modality Chest, Lung Computed Tomogra phy (CT) 12/25/2024 12:0 1 PM EDT Impressions 12/25/2024 12:07 PM EDT No acute process. CT SCAN OF THE CHEST WITH CONTRAST 12/25/2024 9:32 AM HISTORY: Lung cancer follow-up COMPARISON: July 2024 PROCEDURE: The patient was injected with IV contrast. Axial images were obtained from the lung apex to the mid abdomen by computed tomography. This study was performed with techniques to keep radiation doses as low as reasonably achievable, (ALARA). Individualized dose reduction techniques using automated exposure control or adjustment of mA and/or kV according to the patient size were employed. FINDINGS: CHEST: There is no axillary adenopathy. There is no hilar or mediastinal adenopathy. Heart size is normal. There is no pericardial or pleural effusion. There is a spiculated nodule in the posterior right upper lobe measuring 27 mm, stable. This extends to the postoperative changes in the right posterior hilum and is similar to previous. There is an 8 mm nodule in the left upper lobe (image 29), similar to previous. There is a groundglass opacity in the lingula which is stable. Limited images of the upper abdomen demonstrate a 20 mm left adrenal adenoma. There are gallstones within the gallbladder. There are multiple subcentimeter hypodense hepatic lesions which likely represent cysts. IMPRESSION: Stable bilateral lung nodules as above. Images reviewed, interpreted, and dictated by Dr. Eliezer Alexander. Transcribed by Stacey Carmona PA-C. Narrative 12/25/2024 12:[address] NECK WITHOUT CONTRAST 12/25/2024 9:32 AM HISTORY: Worsening dysphagia COMPARISON: None. TECHNIQUE: Thin section axial CT images were obtained through the neck. This study was performed with techniques to keep radiation doses as low as reasonably achievable, (ALARA). Individualized dose reduction techniques using automated exposure control or adjustment of mA and/or kV according to the patient size were employed. FINDINGS: There is no adenopathy or mass lesion present. The thyroid is unremarkable. Limited images of the lung apices are unremarkable. The glottis and supraglottic areas are unremarkable. There is degenerative disc disease throughout the mid and lower cervical spine. Procedure Note Blane Alexander MD - 12/25/2024 CT NECK WITHOUT CONTRAST 12/25/2024 9:32 AM HISTORY: Worsening dysphagia COMPARISON: None. TECHNIQUE: Thin section axial CT images were obtained through the neck. This study was performed with techniques to keep radiation doses as low as reasonably achievable, (ALARA). Individualized dose reduction techniques using automated exposure control or adjustment of mA and/or kV according to the patient size were employed. FINDINGS: There is no adenopathy or mass lesion present. The thyroid is unremarkable. Limited images of the lung apices are unremarkable. The glottis and supraglottic areas are unremarkable. There is degenerative disc disease throughout the mid and lower cervical spine. IMPRESSION: No acute process. CT SCAN OF THE CHEST WITH CONTRAST 12/25/2024 9:32 AM HISTORY: Lung cancer follow-up COMPARISON: July 2024 PROCEDURE: The patient was injected with IV contrast. Axial images were obtained from the lung apex to the mid abdomen by computed tomography. This study was performed with techniques to keep radiation doses as low as reasonably achievable, (ALARA). Individualized dose reduction techniques using automated exposure control or adjustment of mA and/or kV according to the patient size were employed. FINDINGS: CHEST: There is no axillary adenopathy. There is no hilar or mediastinal adenopathy. Heart size is normal. There is no pericardial or pleural effusion. There is a spiculated nodule in the posterior right upper lobe measuring 27 mm, stable. This extends to the postoperative changes in the right posterior hilum and is similar to previous. There is an 8 mm nodule in the left upper lobe (image 29), similar to previous. There is a groundglass opacity in the lingula which is stable. Limited images of the upper abdomen demonstrate a 20 mm left adrenal adenoma. There are gallstones within the gallbladder. There are multiple subcentimeter hypodense hepatic lesions which likely represent cysts. IMPRESSION: Stable bilateral lung nodules as above. Images reviewed, interpreted, and dictated by Dr. Eliezer Alexander. Transcribed by Stacey Carmona PA-C. us Ash Mo MD IMG CT ORDERABLES Final Result * POC-Creatinine (12/25/2024 9:37 AM EDT) POC-Creatinine 1.1 0.6 - 1.3 mg/dL 12/26/2024 7:40 AM EDT [facility] POC-EGFR 71 mL/min/1. 73M2 12/26/2024 7:40 AM EDT [facility] Comment:Proceed with contras t if eGFR > 45 ml/min/1.73 when performed on the NovaSTAT strip Creatinine meter. Principal Systems Engineer [id number] 12/26/2024 7:40 AM EDT [facility] Blood 12/25/2024 9:37 AM EDT 12/26/2024 7:40 AM EDT Ash Mo MD POINT OF CARE TEST ORDERABLES Final Result [facility] [address] [place] [address] documented in this encounter Visit Diagnoses Diagnosis History of adenocarcinoma of lung documented in this encounter Administered Medications Inactive Administered Medications - up to 3 most recent administrations Medication Order MAR Action Action Date Dose Rate Site iopamidoL (ISOVUE-370) 370 mg iodine /mL (76 %) injection 75 mL 75 mL IMG once as needed, intravenous, contrast, Starting on 12/25/24 at 0932, For 1 dose, Intra-op Given 12/25/2024 9:46 AM EDT 75 mLs documented in this encounter Care Teams Lab Intern Relationship Specialty Start Date End Date Maria L Dunn, LISSET [address] [place] [address] PCP - General Family Medicine 01/21/24 documented as of this encounter
--- OUTSIDE RECORDS SUMMARY | 2025-01-10 13:00 | XMS_ITS | Encounter Summary ---
Author Organization [employer] ([place], [place], [place], [place], [place]) Address [address] [place] [address] Care Team Providers Care Box Stapler Name Role Phone Maria L Dunn NP Primary Care Provider [phone] Reason for Referral * CAT Scan (Routine) - Pending Review Specialty Diagnoses / Procedures Referred By Mir hurst Referred To Contact Radiology Diagnoses History of adenocarcinoma of lung Procedures CT chest with IV contrast Ash Mo MD [address] [facility] [address] [place] [phone] Phone: tel: fax: Referral ID Status Reason Start Date Expiration Date V isits Requested Visits Authorized [id number] Pending Review 07/11/2025 07/11/2026 1 1 Reason for Visit * Reason Comments Follow-up Lung Cancer Encounter Details Date Type Department Care Team (Latest Contact Info) Description 01/10/2025 1:00 PM EST Office Visit [facility] - [address] [place] [id number] Ash Mo MD [address] [facility] [address] [place] [phone] History of adenocarcinoma of lung Social History Tobacco Use Types Packs/Day Years Used Date Smoking Tobacco: Former Cigarettes 2 53 1 962 - 2015 Smokeless Tobacco: Never Tobacco Cessation:Counseling Given: Not Answered Alcohol Use Standard Drinks/Week Comments Yes 21 (1 standard drink = 0.6 oz pu re alcohol) 3-4 medicine cup shots/night Family and Community Support Answer [facility] Recorded Help with Day to Day Activities Not on file 08/20/2023 Feeling Lonely or Isolated Not on file 08/19 Educational Attainment Answer Date Sebastian rded Speak language other than [place] at home Not on file 08/20/2023 Want [...] on file documented as of this encounter Last Filed Vital Signs Vital Sign Reading Time Taken Comments Blood Pressure 147/83 01/10/2025 9:59 AM EST Pulse 82 01/10/2025 9:59 AM EST Temperature 36.8 C (98.2 F) 01/10/2025 9:59 AM EST Respiratory Rate 18 01/10/2025 9:59 AM EST Oxygen Saturation 98% 01/10/2025 9:59 AM EST Inhaled Oxygen Concentration - - Weight 69.1 kg (152 lb 6.4 oz) 01/10/2025 9:59 A M EST Height 188 cm (6' 2 ) 01/10/2025 9:59 AM EST Body Mass Index 19.57 01/10/2025 9:59 AM EST documented in this encounter Functional Status * BP Answer Date of Assessment Author 147/83 01/10/2025 9:59 AM CLINICAL BUSINESS MANAGER Vice Rho nda * Temp Answer Date of Assessment Author 98.2 01/10/2025 9:59 AM CLINICAL BUSINESS MANAGER Vice Rho nda * Temp src Answer Date of Assessment Author Temporal Artery 01/10/2025 9:59 AM CLINICAL BUSINESS MANAGER Vice Rho nda * Pulse Answer Date of Assessment Author 82 01/10/2025 9:59 AM CLINICAL BUSINESS MANAGER Vice Rho nda * Resp Answer Date of Assessment Author 18 01/10/2025 9:59 AM CLINICAL BUSINESS MANAGER Vice Rho nda * SpO2 Answer Date of Assessment Author 98 01/10/2025 9:59 AM CLINICAL BUSINESS MANAGER Vice Rho nda * Height Answer Date of Assessment Author 74 01/10/2025 9:59 AM CLINICAL BUSINESS MANAGER Vice, Rho nda * Weight Answer Date of Assessment Author 2438.4 01/10/2025 9:59 AM CLINICAL BUSINESS MANAGER Vice, Rho nda * Tidal Volume Answer Date of Assessment Author 490 01/10/2025 9:59 AM CLINICAL BUSINESS MANAGER Vice, Rho nda * Shock Index Answer Date of Assessment Author 0.56 01/10/2025 9:59 AM CLINICAL BUSINESS MANAGER Vice, Rho nda * BMI (Calculated) Answer Date of Assessment Author 19.6 01/10/2025 9:59 AM CLINICAL BUSINESS MANAGER Vice, Rho nda * BP Location Answer Date of Assessment Author Left arm 01/10/2025 9:59 AM CLINICAL BUSINESS MANAGER Vice, Rho nda * Restart Vitals Timer Answer Date of Assessment Author Yes 01/10/2025 9:59 AM CLINICAL BUSINESS MANAGER Vice, Rho nda * Patient Position Answer Date of Assessment Author Sitting 01/10/2025 9:59 AM CLINICAL BUSINESS MANAGER Vice, Rho nda * BP Answer Date of Assessment Author 147/83 01/10/2025 9:59 AM CLINICAL BUSINESS MANAGER Vice, Rho nda * Pulse Answer Date of Assessment Author 82 01/10/2025 9:59 AM CLINICAL BUSINESS MANAGER Vice, Rho nda * Resp Answer Date of Assessment Author 18 01/10/2025 9:59 AM CLINICAL BUSINESS MANAGER Vice, Rho nda * SpO2 Answer Date of Assessment Author 98 01/10/2025 9:59 AM CLINICAL BUSINESS MANAGER Vice, Rho nda * BMI (Calculated) Answer Date of Assessment Author 19.6 01/10/2025 9:59 AM CLINICAL BUSINESS MANAGER Vice, Rho nda documented as of this encounter Mental Status * BP Answer Entry Date Author 147/83 01/10/2025 9:59 AM CLINICAL BUSINESS MANAGER Vice, Rho nda * Temp Answer Entry Date Author 98.2 01/10/2025 9:59 AM CLINICAL BUSINESS MANAGER Vice, Rho nda * Temp src Answer Entry Date Author Temporal Artery 01/10/2025 9:59 AM CLINICAL BUSINESS MANAGER Vice, Rho nda * Pulse Answer Entry Date Author 82 01/10/2025 9:59 AM CLINICAL BUSINESS MANAGER Vice, Rho nda * Resp Answer Entry Date Author 18 01/10/2025 9:59 AM CLINICAL BUSINESS MANAGER Vice, Rho nda * SpO2 Answer Entry Date Author 98 01/10/2025 9:59 AM CLINICAL BUSINESS MANAGER Vice, Rho nda * Height Answer Entry Date Author 74 01/10/2025 9:59 AM CLINICAL BUSINESS MANAGER Vice, Rho nda * Weight Answer Entry Date Author 2438.4 01/10/2025 9:59 AM CLINICAL BUSINESS MANAGER Vice, Rho nda * Tidal Volume Answer Entry Date Author 490 01/10/2025 9:59 AM CLINICAL BUSINESS MANAGER Vice, Rho nda * Shock Index Answer Entry Date Author 0.56 01/10/2025 9:59 AM CLINICAL BUSINESS MANAGER Vice, Rho nda * BMI (Calculated) Answer Entry Date Author 19.6 01/10/2025 9:59 AM CLINICAL BUSINESS MANAGER Vice, Rho nda * BP Location Answer Entry Date Author Left arm 01/10/2025 9:59 AM CLINICAL BUSINESS MANAGER Vice, Rho nda * Patient Position Answer Entry Date Author Sitting 01/10/2025 9:59 AM CLINICAL BUSINESS MANAGER Vice, Rho nda documented in this encounter Progress Notes * Ash Mo MD - 01/10/2025 1:00 PM EST Chief Complaint: History of Present Illness: Pj Mariano is a 74 y.o. male who presents today for follow up of lung cancer. He had suspicious abnormality on PET scan in July. We repeated his CT at this point. He has not any cough or shortness of breath. He was losing weight and had significant dysphagia. We have had a CT of his neck. I had him see an director of early childhood education. Today he seems in better spirits. He is Gaile but await swallowing is improved. He is not as frustrated as he was the last time I saw him Past Medical History: Diagnosis Date Asthma BPH (benign prostatic hyperplasia) COPD (chronic obstructive pulmonary disease) (HCC) Past Surgical History: Procedure Laterality Date LUNG CANCER SURGERY Right 2004, 2014 left, 2017, 2018 Cancer History: Oncology History Overview Note NSCLC, multiple A. Poorly diff adenocarcinoma resected Right lower lobe. Stage III without post- op therapy 2004 B. Moderaletely diff adenocarcinoma T1 resected MEGHAN 2013 C. Right lower lobe nodules X2 S/P RT 2017 D. Lung nodule, right hilar abnormality on PET 07/2024. Significance unknown No history exists. Allergies: Patient has no known allergies. Medications: Current Outpatient Medications on File Prior to Visit Medication Sig Dispense Refill albuterol 2.5 mg /3 mL (0.083 %) nebulizer solution Inhale 3 mLs (2.5 mg total) by nebulization 4 times a day. No current facility-administered medications on file prior to visit. Review of Systems: Review of Systems All other systems reviewed and are negative. Vitals: Vitals: 01/10/25 0959 BP: (!) 147/83 Pulse: 82 Resp: 18 Temp: 98.2 ??F (36.8 ??C) TempSrc: Temporal Artery SpO2: 98% Weight: 69.1 kg (152 lb 6.4 oz) Height: 1.88 m (6' 2 ) Physical Exam: Physical Exam Vitals reviewed. Constitutional: Appearance: Normal appearance. HENT: Head: Normocephalic and atraumatic. Mouth/Throat: Mouth: Mucous membranes are moist. Pharynx: Oropharynx is clear. Eyes: Extraocular Movements: Extraocular movements intact. Conjunctiva/sclera: Conjunctivae normal. Pupils: Pupils are equal, round, and reactive to light. Neck: Comments: No cervical supraclavicular or axillary adenopathy Cardiovascular: Rate and Rhythm: Normal rate and regular rhythm. Pulses: Normal pulses. Heart sounds: Normal heart sounds. Pulmonary: Effort: Pulmonary effort is normal. Breath sounds: Normal breath sounds. Comments: No dullness to percussion in the lung bases bilaterally Abdominal: General: Abdomen is flat. Bowel sounds are normal. Palpations: Abdomen is soft. Comments: No hepatomegaly below the right costal margin Musculoskeletal: General: Normal range of motion. Cervical back: Normal range of motion and neck supple. Comments: No areas of bone pain Neurological: General: No focal deficit present. Mental Status: He is alert. Mental status is at baseline. Comments: No deficits Relevant Results: Hospital Outpatient Visit on 12/25/2024 Component Date Value Ref Range Status POC-Creatinine 12/25/2024 1.1 0.6 - 1.3 mg/dL Final POC-EGFR 12/25/2024 71 mL/min/1.73M2 Final Proceed with contrast if eGFR > 45 ml/min/1.73 when performed on the NovaSTAT strip Creatinine meter. [facility] 12/25/[id number] neck soft tissue without IV contrast Result Date: 12/25/2024 CT NECK WITHOUT CONTRAST 12/25/2024 9:32 AM HISTORY: Worsening dysphagia COMPARISON: None. TECHNIQUE: Thin section axial CT images were obtained through the neck. This study was performed with techniques to keep radiation doses as low as reasonably achievable, (ALARA). Individualized dose reductiontechniques using automated exposure control or adjustment of mA and/or kV according to the patient size were employed. FINDINGS: There is no adenopathy or mass lesion present. The thyroid is unremarkable. Limited images of the lung apices are unremarkable. The glottis and supraglottic areas are unremarkable. There is degenerative disc disease throughout the mid and lower cervical spine. No acute process. CT SCAN OF THE [...] previous. There is an 8 mm nodule inthe left upper lobe (image 29), similar to previous. There is a groundglass opacity in the lingula which is stable. Limited images of the upper abdomen demonstrate a 20 mm left adrenal adenoma. Thereare gallstones within the gallbladder. There are multiple subcentimeter hypodense hepatic lesions which likely represent cysts. IMPRESSION: Stable bilateral lung nodules as above. Images reviewed, interpreted, and dictated by Dr. Eliezer Alexander. Transcribed by Stacey Carmona PA-C. CT chest with IV contrast Result Date: 12/25/2024 CT NECK WITHOUT CONTRAST 12/25/2024 9:32 AM HISTORY: Worsening dysphagia COMPARISON: None. TECHNIQUE: Thin section axial CT images were obtained through the neck. This study was performed with techniques to keep radiation doses as low as reasonably achievable, (ALARA). Individualized dose reductiontechniques using automated exposure control or adjustment of mA and/or kV according to the patient size were employed. FINDINGS: There is no adenopathy or mass lesion present. The thyroid is unremarkable. Limited images of the lung apices are unremarkable. The glottis and supraglottic areas are unremarkable. There is degenerative disc disease throughout the mid and lower cervical spine. No acute process. CT SCAN OF THE [...] previous. There is an 8 mm nodule inthe left upper lobe (image 29), similar to previous. There is a groundglass opacity in the lingula which is stable. Limited images of the upper abdomen demonstrate a 20 mm left adrenal adenoma. Thereare gallstones within the gallbladder. There are multiple subcentimeter hypodense hepatic lesions which likely represent cysts. IMPRESSION: Stable bilateral lung nodules as above. Images reviewed, interpreted, and dictated by Dr. Eliezer Alexander. Transcribed by Stacey Carmona PA-C. Cancer Staging No matching staging information was found for the patient. Plan: His CT scan of the neck did not demonstrate any pathologic abnormalities. The CT of the chestdemonstrates 2 pulmonary nodules 1 in each lung as compared to July neither of these have changed at all. He is going to have a modified barium swallow study as recommended by otorhinolaryngology laryngology. I will see him in a few months. Will see how he is doing at that point. I did not make other recommendations. I have answered his questions. I am pleased at the outcome thus far Signed: Electronically signed by Ash Mo MD 01/10/25 4:47 PM LINDSAY Dunn NP ICAL BUSINESS MANAGER documented in this encounter Plan of Treatment Upcoming Encounters Date Type Department Care Team (Late st Contact Info) Description 07/11/2025 10:15 AM EDT Office Visit [facility] - [address] [place] [address] Ash Mo MD [address] [facility] [address] [place] [address] Scheduled Orders Name Type Priority Associated Diagnoses Orde r Schedule CT chest with IV contrast Imaging Routine History of adenocarcinoma of lung Expected: 07/11/2025, Expires: 02/09/2026 documented as of this encounter Visit Diagnoses Diagnosis History of adenocarcinoma of lung documented in this encounter Care Teams Box Stapler Relationship Specialty Start Date End Date Maria L Dunn NP [address] [facility] [address] [place] [address] PCP - General Family Medicine 01/21/24 documented as of this encounter
--- OUTSIDE RECORDS SUMMARY | 2025-02-09 03:29 | XMS_ITS | Continuity of Care Document ---
Author Organization [facility] Phone Care Team Providers Care Lip Of Shank Cutter Name Role Phone DOMINICK BAILEY Primary Care ELIAS WADE Admitting ELIAS WADE Primary Attending ELIAS WADE Unavailable ALLERGIES AND ADVERSE REACTIONS ALLERGIES AND ADVERSE REACTIONS Code System Allergy Substance Adverse Reaction Date Reaction (Severity) Comment Status Reported By Updated By contrast dye (Free Text Allergy) Rash active [id number] on August 11, 2022 5:41:50 PM [facility] FAMILY HISTORY RELATION: Father Status: Cause of : Unknown Age at : Unknown SNOMED-CT Diagnosis Age At Onset [id number] Diabetes mellitus RELATION: Mother Status: Cause of : Unknown Age at : Unknown SNOMED-CT Diagnosis Age At Onset [id number] Heart disease RESULTS Patient: BELINDA Becerril Date of : 1950 LABORATORY RESULTS Information is not available LABORATORY NARRATIVE RESULTS Information is not available RADIOLOGY RESULTS ORDER 100: MODIFIED BARIUM S WALLOW (LOINC: 11394-4) ORDER DATE: February 07, 2025 4:46:00 PM [facility] PERFORMING LAB: [address] [id number] Final Result Date: February 07, 2025 5:25:[address] [place] [address] Name: TRINITY TREVINO Exam Date: 02/07/2025 : 1950 Age 74 years Gender: M Physician: ELIAS WADE Facility: [facility] Facility HSV: Outpatient Exam: MODIFIED BARIUM SWALLOW MODIFIED BARIUM SWALLOW HISTORY: Dysphagia PROCEDURE: The patient was observed swallowing different consistencies of barium under fluoroscopy. The examination was performed in conjunction with the speech pathologist. FINDINGS: Fluoroscopy was provided for the speech pathologist to evaluate the swallowing mechanism. The patient was given several different consistencies of barium with a swallow was visualized fluoroscopically. Across all consistencies there was no evidence of penetration or aspiration. The report of the speech pathologist should be consulted prior to making dietary decisions. RADIATION DOSE: Radiation exposure in reference to Air Kerma: 8.682 mGy. FLUOROSCOPY TIME: 57.1 seconds . VIDEO RADIOGRAPHY FILMS: 17 Cine runs were submitted. Procedure was performed by Evangelist Mohan PA-C under the supervision of Dr. Bernardo Mims MD. IMPRESSION: Modified barium swallow under fluoroscopic guidance. No significant episode of penetration or aspiration across all consistencies given. Please see speech pathologist's report for further details and recommendations. Electronically signed by: Bernardo Mims MD 02/08/2025 02:34 PM [facility] Dictated By: Bernardo Mims Transcribed By: Transcribed On: 02/07/2025 12:25 PM Electronically signed by: Bernardo Mims 02/07/2025 Thank you for referring TRINITY TREVINO to [facility]. Legally authenticated by DONNY MCMANUS MD 2025-02-07 12:25:00 ORDER 200: ESOPHAGRAM (LOINC : 96653-0) ORDER DATE: February 07, 2025 4:46:00 PM [facility] PERFORMING LAB: [address] [id number] Final Result Date: February 07, 2025 5:25:[address] [place] [address] Name: TRINIYT TREVINO Exam Date: 02/07/2025 : 1950 Age 74 years Gender: M Physician: ELIAS WADE Facility: [facility] Facility HSV: Outpatient Exam: ESOPHAGRAM BARIUM SWALLOW HISTORY: Dysphagia COMPARISON: None TECHNIQUE: The patient ingested thick and thin barium contrast while in the upright and horizontal position. Effervescent crystals were also administered. Spot films were obtained. FINDINGS: The esophagus is unremarkable in course, caliber and mucosal pattern. There is no hiatal hernia. There is significant gastroesophageal reflux seen to the thoracic inlet. There is mild esophageal dysmotility with mild tertiary contractions noted. A 13 mm barium tablet was administered, the tablet passes easily through the esophagus and through the gastroesophageal junction. RADIATION DOSE: Radiation exposure in reference to Air Kerma: 40.39 mGy FLUOROSCOPY TIME: 79.1 seconds . FLUOROSCOPY FILMS: 10 Procedure was performed by Evangelist Mohan PA-C under the supervision of Dr. Bernardo Mims MD. IMPRESSION: Significant gastroesophageal reflux. Mild esophageal dysmotility with tertiary contractions. Electronically signed by: Bernardo Mims MD 02/08/2025 02:34 PM [facility] Dictated By: Bernardo Mims Transcribed By: Transcribed On: 02/07/2025 12:25 PM Electronically signed by: Bernardo Mims 02/07/2025 Thank you for referring TRINITY TREVINO to [facility]. Legally authenticated by DONNY MCMANUS MD 2025-02-07 12:25:18 PATHOLOGY NARRATIVE RESULTS Information is not available MICROBIOLOGY RESULTS No Micro Labs/Results Exist for Patient BLOOD ADMIN RESULTS Information is not available MEDICATIONS HOME MEDICATIONS Status RXNORM NDC Medication Dose Route Frequency Dates Comments Reported By Updated By Drug Treatment Unknown DISCHARGE MEDICATIONS Status RXNORM NDC Medication Dose Route Frequency Dates Dis pense Data Comments Physician Updated By No Discharge Medication Info rmation Available INPATIENT MEDICATIONS Status RXNORM NDC Medication Dose Route Frequency Rat e Quantity Dates Indication Dispense Data Comments Physician Updated By No Inpatient Medication Info rmation Available SOCIAL HISTORY SOCIAL HISTORY - Smoking Status SNOMED-CT Social History Element Description Effective Dates Offered Cessation Comment Updated By [id number] Historical Tobacco smoking status Former Smoker Not Applicable [id number] on March 07, 2021 8:44:45 PM [facility] [id number] Historical Tobacco smoking status Never Smoked Yes [id number] on November 15, 2015 7:59:29 PM [place] SOCIAL HISTORY - Gender Sex: Male SOCIAL HISTORY - Status : status i nformation is not available Intention in Next Year: intention information is not available SOCIAL HISTORY - Assessments Code System Description Status Date Value of Assessment Updated By Comment Assessment Information is no t available SOCIAL HISTORY - [place] Affiliation [place] information is not av ailable SOCIAL HISTORY - Sexual Behavior Sexual Orientation Gender Identity SNOMED-CT Description SNO MED -CT Description Activity Level No of Partners Partner Type UpdatedBy Information is not available SOCIAL HISTORY - Occupation Occupation information is no t available ENCOUNTERS ENCOUNTER INFORMATION Reason for Visit R13.12 Admission February 07, 2025 4:34:00 PM [facility] [address] [facility] [address] Discharge February 07, 2025 5:15:00 PM [facility] DISCHARGED TO HOME OR SELF CARE ENCOUNTER DIAGNOSES Notes information is not zena ilable. Code System Diagnosis Onset Date Diagnosis information is not available. ABSTRACT DIAGNOSES Code System Diagnosis Updated By Abatement Date R13.12 ICD10 DYSPHAGIA, OROPHARYNGEAL PHA SE [id number] on January 11, 2025 3:11:14 PM [facility] R13.12 ICD10 DYSPHAGIA, OROPHARYNGEAL PHA SE [id number] on February 09, 2025 8:28:55 AM [facility] CARE TEAM Care Lip Of Shank Cutter Role DOMINICK BAILEY Primary Care ELIAS WADE Admitting ELIAS WADE Primary Attending ELIAS WADE Referring CARE TEAM CARE tile ditcher Role on Team Location Telecom Status Start Date End [facility] Updated By LEO TAN APRN PCP [address] [place], [address] normal February 07, 2025 5:14:56 PM [facility] February 07, 2025 5:15:00 PM [facility] [id number] on February 07, 2025 5:14:56 PM [facility] DECLINED PCP PCP [address] [place], [address] normal January 11, 2025 3:11:14 PM [facility] February 07, 2025 5:14:56 PM [facility] [id number] on February 07, 2025 5:14:56 PM [facility] SHERI MARTÍNEZ Referring [address] [place], [address] normal January 11, 2025 3:11:14 PM [place] February 07, 2025 5:15:00 PM [facility] [id number] on February 07, 2025 5:14:56 PM [facility] SHERI GRIFFIN MD PHY Attending [address] [place], [address] normal January 11, 2025 3:11:14 PM [facility] February 07, 2025 5:15:00 PM [facility] [id number] on February 07, 2025 5:14:56 PM [facility] SHERI MARTÍNEZ Admitting [address] [place], [address] normal January 11, 2025 3:11:14 PM [facility] February 07, 2025 5:15:00 PM [facility] [id number] on February 07, 2025 5:14:56 PM [facility] INSURANCE PROVIDERS INSURANCE PROVIDER Coverage Status - Effective Date Coverage Type Payor Plan Order Relationship To Subscriber Insurance Plan No Insurance Plan 2024-03-01 M PRIMARY [id number] MEDICARE A B 2024-03-01 C SECONDARY [phone] [facility]
[2025-02-24] VITALS (7 sets, daily range): BP systolic 130–175; BP diastolic 64–111; PULSE 104–134; RESP 20–25; TEMP 36.9–37.4; O2SAT 93–98; BMI 19.8; BMI 21.2
--- OUTSIDE RECORDS SUMMARY | 2025-02-24 17:24 | XMS_ITS | Referral Summary ---
Author Organization [employer] ([place], [place], [place], [place], [place]) Address [address] [place] [address] Care Team Providers Care Billing Analyst Name Role Phone Maria L Dunn NP Primary Care Provider [phone] Encounters Date Type Department Care Team Description 01/10/2025 Travel 01/10/2025 1:00 PM EST Office Visit [facility] [place] [address] [facility] [address] [place] [address] Ash Mo MD History of adenocarcinoma of lung 12/25/2024 Travel 12/25/2024 9:30 AM EDT Hospital Encounter [facility] CT Imaging [address] [place] [address] Ash Mo MD History of adenocarcinoma of lung Discharge Disposition: Home or Self Care 12/25/2024 9:30 AM EDT - 12/25/2024 11:59 PM EDT Hospital Encounter [facility] CT Imaging [address] [place] [address] Ash Mo MD History of adenocarcinoma of lung Discharge Disposition: Home or Self Care 12/22/2024 Telephone [place] [address] [facility] [address] [place] [address] [place], [place] 12/22/2024 Travel 12/13/2024 Travel 12/13/2024 1:15 PM EDT Office Visit [place] [address] [facility] [address] [place] [address] Ash Mo MD History of adenocarcinoma of lung (Primary Dx) from Last 3 Months Allergies No known active allergies Medications albuterol 2.5 mg /3 mL (0.083 %) nebulizer solution Inhale 3 mLs (2.5 mg total) by nebulization 4 times a day. Active Active Problems Problem Noted Date Diagnosed Date Abnormal finding on lung imaging 08/08/2024 History of adenocarcinoma of lung 08/08/2024 Social History Tobacco Use Types Packs/Day Years [...] Date Sebastian rded Speak language other than Citizen Of [place] at home Not on file 08/20/2023 Want [...] on file Sexual Orientation Not on file Last Filed Vital Signs Vital Sign Reading [...] Mass Index 19.57 01/10/2025 9:59 AM EST Plan of Treatment Upcoming Encounters Date Type Department Care Team (Late st Contact Info) Description 07/11/2025 10:15 AM EDT Office Visit [facility] - [address] [place] [address] Ash Mo MD [address] [facility] [address] [place] [address] Procedures Procedure Name Priority Date/Time Associated Diagnosis Comments CT CHEST WITH IV CONTRAST Routine 12/25/2024 9:45 AM EDT History of adenocarcinoma of lung CT NECK SOFT TISSUE WITHOUT IV CONTRAST Routine 12/25/2024 9:44 AM EDT History of adenocarcinoma of lung POCT-CREATININE NOVA Routine 12/25/2024 9:37 AM EDT EXTERNAL PATHOLOGY ORDER AP Routine 12/12/2024 4:08 PM EDT from Last 3 Months Results * CT chest with IV contrast [...] MD IMG CT ORDERABLES Final Result * CT neck soft tissue without IV contrast (12/25/2024 9:44 AM EDT) Anatomical Region Laterality Modality Neck, C-spine Computed Tomogra phy (CT) 12/25/2024 12:0 1 [...] Eliezer Alexander. Transcribed by Stacey Carmona PA-C. Ash Mo MD IMG CT ORDERABLES Final Result * POC-Creatinine (12/25/2024 9:37 AM EDT) POC-Creatinine 1.1 0.6 - 1.3 mg/dL 12/26/2024 7:40 AM EDT [facility] POC-EGFR 71 mL/min/1. 73M2 12/26/2024 7:40 AM EDT [facility] Comment:Proceed with contras t if eGFR > 45 ml/min/1.73 when performed on the NovaSTAT strip Creatinine meter. Rn Wound Care [id number] 12/26/2024 7:40 AM EDT [facility] Blood 12/25/2024 9:37 AM EDT 12/26/2024 7:40 AM EDT us Ash Mo MD POINT OF CARE TEST ORDERABLES Final Result [facility] [address] [place] [address] * EXTERNAL PATHOLOGY ORDER (12/12/2024 4:08 PM EDT) Historical Provider PATHOLOGY/CYTOLOGY ORDERA BLES Final Result from Last 3 Months Insurance [address] [facility] [id number] [place] MEDIC[place] [facility] Care Teams Billing Analyst Relationship Specialty Start Date End Date Maria L Dunn NP [address] [place] [address] PCP - General Family Medicine 01/21/24
--- OUTSIDE RECORDS SUMMARY | 2025-02-24 17:24 | XMS_ITS | Clinical Summary ---
Author Organization [employer] ([place], [place], [place], [place], [place]) Address [address] [place] [address] Care Team Providers Care General Internal Medicine Physician Name Role Phone Maria L Dunn NP Primary Care Provider [phone] Allergies No known active allergies Medications albuterol 2.5 mg /3 mL (0.083 %) nebulizer solution Inhale 3 mLs (2.5 mg total) by nebulization 4 times a day. Active Active Problems Problem Noted Date Diagnosed Date Abnormal finding on lung imaging 08/08/2024 History of adenocarcinoma of lung 08/08/2024 Encounters Date Type Department Care Team Description 01/10/2025 1:00 PM EST Office Visit [place] [address] [address] [facility] [address] [place] [address] Ash Mo MD History of adenocarcinoma of lung 01/10/2025 Travel 12/25/2024 9:30 AM EDT - 12/25/2024 11:59 PM EDT Hospital Encounter [facility] CT [address] [place] [address] Ash Mo MD History of adenocarcinoma of lung Discharge Disposition: Home or Self Care 12/25/2024 9:30 AM EDT Hospital Encounter [facility] CT [address] [place] [address] Ash Mo MD History of adenocarcinoma of lung Discharge Disposition: Home or Self Care 12/25/2024 Travel 12/22/2024 Telephone [facility] [address] [facility] [address] [place] [address] [place], [place] 12/22/2024 Travel 12/13/2024 1:15 PM EDT Office Visit [facility] - [address] [place] [address] Ash Mo MD History of adenocarcinoma of lung (Primary Dx) 12/13/2024 Travel from Last 3 Months Family History Medical History Relation Name Comments Cancer Brother Diabetes Father Heart failure Mother Diabetes Sister Relation Name Status Comments Brother Father Mother Sister Social History Tobacco Use Types Packs/Day Years [...] Date Sebastian rded Speak language other than [place] Rican at home Not on file 08/20/2023 Want [...] Description 07/11/2025 10:15 AM EDT Office Visit [facility] - [address] [place] [address] Ash Mo MD [address] [facility] [address] [place] [address] Health Maintenance Due Date Last Done Comments CT Colonography 1949 Colonoscopy 1949 Colorectal Cancer Screening 1949 FOBT/FIT 1949 Fit-DNA (Cologuard) 1950 Sigmoidoscopy 1949 Depression Screening (12+) 1961 Hepatitis C Screening 11/18/1967 DTAP/TDAP/TD VACCINES (1 - Tdap) 1968 Medicare Initial AWV [id number] 04/02/1994 Shingles Vaccine (Zoster) (1 of 2) 11/18/1999 Abdominal Aortic Aneurysm (A AA) Screen 2014 Falls Risk Screening 03/01/2024 COVID-19 VACCINE (5 - 2024-2 6 season) 2024 01/06/2022, 01/16/2021, 07/11/2020, Additional history exists Respiratory Syncytial Virus (RSV) Adult or (1 - 1-dose 75+ series) 2024 Lung Cancer Screening 12/25/2025 12/25/2024 , 08/07/2024, 01/21/2024 Tobacco Cessation Counseling and Screening (12+) 01/10/2026 01/10/2025 Pneumococcal 50+ years Completed 06/09/2023 Influenza Vaccine Completed 12/22/2024, , 12/17/2016 Procedures Procedure Name Priority Date/Time Associated Diagnosis [...] by Stacey Carmona PA-C. Ash Mo MD IM CT ORDERABLES Final Result * CT neck [...] - 1.3 mg/dL 12/26/2024 7:40 AM EDT [facility] POC-EGFR 71 mL/min/1. 73M2 12/26/2024 7:40 AM EDT [facility] Comment:Proceed with contras t if eGFR > 45 ml/min/1.73 when performed on the NovaSTAT strip Creatinine meter. [employer] General Supervisor [id number] 12/26/2024 7:40 AM EDT [facility] Blood 12/25/2024 9:37 AM EDT 12/26/2024 7:40 AM EDT Ash Mo MD POINT OF CARE TEST ORDERABLES Final Result Performing Organization Address City/State/[facility] Co de Phone Number [facility] [address] [place] [address], [facility] [phone] * EXTERNAL PATHOLOGY ORDER (12/12/2024 4:08 PM EDT) Historical Provider PATHOLOGY/CYTOLOGY ORDERA BLES Final Result from Last 3 Months Insurance [place] OF [place] PART A B Care Teams General Internal Medicine Physician Relationship Specialty Start Date End Date Maria L Dunn NP [address] [place] [address] PCP - General Family Medicine 01/21/24
--- OUTSIDE RECORDS SUMMARY | 2025-02-24 17:24 | XMS_ITS | Clinical Summary ---
Author Organization [facility] Address [address] [place] [address] Care Team Providers Care Residential Solar Consultant Name Role Phone Maria L Dunn FISHING LINE WINDING MACHINE OPERATOR Primary Care Provider Allergies Active Allergy Reactions Criticality Noted Date Comments Contrast Dye (Echo Or Unknown Ct/Mr) Nausea And Vomiting,GI Intolerance Low 06/09/2017 contrast dye sometimes cause Nausea and vomiting Medications imiquimod (ALDARA) 5 % cream Apply 1 Application topically to the appropriate area as directed Every Night. 4 Active amoxicillin-clav ulanate (AUGMENTIN) 875-125 MG per tablet 4 Active predniSONE (DELTASONE) 50 MG tablet 4 Active albuterol sulfate HFA 108 (90 Base) MCG/ACT inhaler Inhale 2 puffs Every 4 (Four) Hours As Needed for Wheezing. Active albuterol (PROVENTIL) (2.5 MG/3ML) 0.083% nebulizer solutionIndicati ons:Chronic obstructive pulmonary disease with acute exacerbation Take 2.5 mg by nebulization Every 4 (Four) Hours As Needed for Wheezing. 3 mL 12 4 Active Trelegy Ellipta 100-62.5-25 MCG/ACT inhalerIndicatio ns:Chronic obstructive pulmonary disease with acute exacerbation INHALE 1 PUFF DAILY. 60 each 3 5 Active Active Problems Problem Noted Date Diagnosed Date Elevated blood pressure reading 03/03/2024 Assessment & Plan (03/03/2024 5:05 PM EST): His blood pressure is noted to be elevated in office today, 138/88. He is not currently utilizing any antihypertensive agents. Patient states that he does check his blood pressure at home intermittently with more satisfactory readings, generally low 130s over high 70s. I requesting patient check his blood pressure at home 2- 3 times weekly with goal less than 130/80. If blood pressure not meeting goal he is to call the office for further direction Squamous cell skin cancer 06/10/2023 Assessment & Plan (06/10/2023 11:26 AM EDT): Followed by [facility], Lenora Hays APRN. Patient has undergone both cryo freezing and excision of various areas. Continues to be followed regularly Chronic obstructive pulmonar y disease with acute exacerbation 06/10/2023 Assessment & Plan (03/03/2024 5:03 PM EST): Patient recently evaluated and treated at the local emergency department for COPD exacerbation. Patient has had diagnosis of COPD for several years but has not required any prophylactic medications up until this point. Patient feels that his pulmonary function is back to baseline with medications given to him in the emergency department including Z-Pelon, as needed albuterol inhaler and prednisone. I am going to initiate daily Trelegy, patient given samples and prescription sent to pharmacy. Assessment & Plan (06/10/2023 11:26 AM EDT): Patient with documented history of COPD, however does not utilize any type of inhalers or prophylactic medications. He states his respiratory function is currently at baseline Medicare annual wellness visit, subsequent 06/08 Assessment & Plan (06/10/2023 11:28 AM EDT): Patient presents today for subsequent Medicare wellness. He continues to be followed regularly by cardiothoracic surgery after undergoing right lower lobectomy in 2005 and left upper lobectomy in 2013 for malignant neoplasm. Patient was a 2 pack/day smoker for 53 years, achieving cessation in 2013. He continues to be followed regularly by urology with symptomatic BPH. He has had elevated PSA in the past but biopsy negative for any malignancy. He is receiving his pneumococcal vaccine today, declines colonoscopy for colorectal cancer screening. 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 Green, urology. He has undergone biopsy in the past without malignancy noted. Patient states that he continues to have lower urinary tract symptoms including urgency and frequency. He is unsure of what particular procedure but they are discussing surgical intervention in hopes of improving his symptoms. He is not currently taking any medication. 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 Asa Franks, however he recently retired. He continues to be followed by oncology services. Recently had PET scan which was satisfactory. Assessment & Plan (06/10/2023 11:26 AM EDT): Patient continues to be followed yearly by Dr. Asa Franks, CT surgeon. Most recent imaging satisfactory, plan for repeat in 3 months Resolved Problems Problem Noted Date Diagnosed Date Resolved Date Malignant neoplasm of bronchus and lung 05/08/2020 08/04/2021 Cancer of upper lobe of right lung 04/14/2018 08/04/2021 Encounters Date Type Department Care Team Description 12/22/2024 11:15 AM EDT Clinical Support [facility] [address] [place] [address] [address] [place], [place] [address] Encounter for immunization (Primary Dx) 12/22/2024 Travel 12/01/2024 Refill [facility] [address] [place] [address] Maria L Dunn, FISHING LINE WINDING MACHINE OPERATOR Chronic obstructive pulmonary disease with acute exacerbation from Last 3 Months Immunizations Immunization Administration Dates Next Due COVID-19 (MODERNA) BIVALENT 12+YRS 01/06/2022 COVID-19 (MODERNA) Monovalen t Original Booster 01/16/2021,07/11/2020,06/13/2020 Fluzone High-Dose 65+YRS 12/22/2024,01/12/2018,1 Pneumococcal Conjugate 20-Valent (PCV20) 024 Family History Medical History Relation Name Comments Diabetes Father Coronary artery disease Mother Hypertension Mother Coronary artery disease Other Stroke Other Diabetes Sister Relation Name Status Comments Father Mother Other Sister Social History Tobacco Use Types Packs/Day Years Used Date Smoking Tobacco: Former Cigarettes 2 53 1 03/16/1960 - 01/14/2014 Smokeless Tobacco: Never Tobacco Cessation:Counseling Given: Not Answered Alcohol Use Standard Drinks/Week Comments Yes 0 (1 standard drink = 0.6 oz pur e alcohol) 6-8 Beers Weekly PHQ-2 Answer Date Recorded Retired PHQ-9: Brief Depression Severity Measure Score 0 08/11/2022 PHQ-2 Answer Date Recorded Retired PHQ-9: Brief Depression Severity Measure Score 0 06/09/2023 Sex and Gender Information Value Date Recorded Sex Assigned at Not on file Legal Sex Male 12:21 PM EDT Gender Identity Not on file Sexual Orientation Not on file Occupation Industry Job Start Date Job End Date [employer] Not on file Not on file No t on file Last Filed Vital Signs Vital Sign Reading Time Taken Comments Blood Pressure 138/88 02/28/2024 3:21 PM EST Pulse 82 02/28/2024 3:21 PM EST Temperature 36.3 C (97.4 F) 02/28/2024 3:21 PM EST Respiratory Rate 18 02/28/2024 3:21 PM EST Oxygen Saturation 97% 02/28/2024 3:21 PM EST Inhaled Oxygen Concentration - - Weight 78.5 kg (173 lb) 02/28/2024 3:21 PM EST Height 182.9 cm (6') 02/28/2024 3:21 PM EST Body Mass Index 23.46 02/28/2024 3:21 PM EST Plan of Treatment Health Maintenance Due Date Last Done Comments TDAP/TD VACCINES (1 - Tdap) 1968 COLOGUARD 1994 COLON CANCER SCREENING 5 YEA R SIGMOIDOSCOPY 1994 COLONOSCOPY 1994 [address]AL CANCER SCREENING 1994 CT COLONOGRAPHY 1994 FECAL OCCULT BLOOD TEST 1994 FIT Testing (1 year) 1994 ZOSTER VACCINE (1 of 2) 11/18/1999 COVID-19 Vaccine (3 - Modern a risk series) 12/30/2023 12/02/2023, 01/06/2022, 01/16/2021, Additional history exists ANNUAL WELLNESS VISIT 06/08/2024 06/09/2023 RSV Vaccine - Adults (1 - 1- dose 75+ series) 2024 Pneumococcal Vaccine 50+ Completed 06/09/2023 AAA SCREEN ONCE Completed 02/23/2024, 03/15/2020 HEPATITIS C SCREENING Completed 03/23/2024 , 03/20/2024, 02/23/2024, Additional history exists LUNG CANCER SCREENING Discontinued 08/07/2024 , 08/07/2024, 01/21/2024, Additional history exists INFLUENZA VACCINE Completed 12/22/2024, , 12/02/2023, Additional history exists Procedures Procedure Name Priority Date/Time Associated Diagnosis Comments CT CHEST W WO CONTRAST DIAGNOSTIC Routine 07/09/2023 Malignant neoplasm of lower lobe of right lung HEPATITIS C ANTIBODY Routine 06/10/2023 8:37 AM EDT Need for hepatitis C screening test from Last 3 Months or Most Recently Relevant to Health Maintenance Results * CT Chest With & Without Contrast (07/09/2023) Anatomical Region Laterality Modality Chest N/A Computed Tomogra phy us Leslie Levi FISHING LINE WINDING MACHINE OPERATOR IMG CT ORDERABLES Final Result * Hepatitis C Antibody (06/10/2023 8:37 AM EDT) Hep C Virus Ab Non Reactive Non Reactive [facility] Comment: HCV antibody alone does not differentiate between previously resolved infection and active infection. Equivocal and Reactive HCV antibody results should be followed up with an HCV RNA test to support the diagnosis of active HCV infection. Blood Structure of left upper limb / Unknown 06/10/2023 8:37 AM EDT 06/10/2023 Comment:Blood Release to [facility] sidra Augustin [facility] - 06/11/2023 8:10 AM EDT Performed at: - [facility] [address] [id number] [place] Operator: Antione Nguyen PhD, Phone: [phone] Maria L Dunn APRN LAB BLOOD ORDERABLES Final Result [facility] [address] [place] [address], [facility] [address] [place] [address], from Last 3 Months or Most Recently Relevant to Health Maintenance Insurance MEDICARE A & B [employer] Care Teams Residential Solar Consultant Relationship Specialty Start Date End Date Maria L Dunn APRN [address] [place] [id number] PCP - General Family Medicine 08/07/22
--- OUTSIDE RECORDS SUMMARY | 2025-02-24 17:25 | XMS_ITS | Encounter Summary ---
Author Organization [employer] ([place], [place], [place], [place], [place]) Address [address] [place] [address] Care Team Providers Care Crusher Tender Name Role Phone Maria L Dunn NP Primary Care Provider [phone] Encounter Details Date Type Department Care Team (Latest Contact Info) Description 01/10/2025 Travel Social History Tobacco Use Types Packs/Day Years Used Date Smoking Tobacco: Former Cigarettes 2 53 1 962 - 2014 Smokeless Tobacco: Never Alcohol Use Standard Drinks/Week Comments Yes 21 (1 standard drink = 0.6 oz pu re alcohol) 3-4 medicine cup shots/night Family and Community Support Answer [facility] e Recorded Help with Day to Day Activities Not on file 08/20/2023 Feeling Lonely or Isolated Not on file 08/19 Educational Attainment Answer Date Sebastian rded Speak language other than Bermudian at home Not on file 08/20/2023 Want [...] on file documented as of this encounter Functional Status * Communicable Disease Screening Question Answer Date of Assessment Author Have you been in contact wit h someone who was sick? No / Unsure 01/10/2025 9:57 AM Blanca Garcia MA Do you have any of the follo wing new or worsening symptoms? None of these 01/10/2025 9:57 AM Lorenzo Garcia MA documented as of this encounter Plan of Treatment Upcoming Encounters Date Type Department Care Team (Late st Contact Info) Description 07/11/2025 10:15 AM EDT Office Visit [facility] - [address] [place] [address] Ash Mo MD [address] [facility] [address] [place] [address] documented as of this encounter Visit Diagnoses Not on filedocumented in this encounter Care Teams Crusher Tender Relationship Specialty Start Date End Date Maria L Dunn, LISSET [address] [facility] [address] [place] [address] PCP - General Family Medicine 01/21/24 documented as of this encounter
--- OUTSIDE RECORDS SUMMARY | 2025-02-24 17:25 | XMS_ITS | Encounter Summary ---
Author Organization [employer] ([place], [place], [place], [place], [place]) Address [address] [place] [address] Care Team Providers Care Software Integrator Name Role Phone Maria L Dunn NP Primary Care Provider [phone] Encounter Details Date Type Department Care Team (Late Contact Info) Description 12/22/[address] [place] [address] [place], [place] Social History Tobacco Use Types Packs/Day Years Used Date Smoking Tobacco: Former Cigarettes 2 53 1 962 - 2015 Smokeless Tobacco: Never Alcohol Use Standard Drinks/Week Comments Yes 21 (1 standard drink = 0.6 oz pu re alcohol) 3-4 medicine cup shots/night Family and Community Support Answer [facility] e Recorded Help with Day to Day Activities Not on file 08/20/2023 Feeling Lonely or Isolated Not on file 08/19 Educational Attainment Answer Date Sebastian rded Speak language other than Grenadian at home Not on file 08/20/2023 Want [...] on file documented as of this encounter Plan of Treatment Upcoming Encounters Date Type Department Care Team (Late Contact Info) Description 07/11/2025 10:15 AM EDT Office Visit [facility] [address] [place] [address] Ash Mo MD [address] [facility] [address] [place] [address] documented as of this encounter Visit Diagnoses Not on filedocumented in this encounter Care Teams Software Integrator Relationship Specialty Start Date End Date Maria L Dunn, LISSET [address] [facility] [address] [place] [address] PCP - General Family Medicine 01/21/24 documented as of this encounter
--- OUTSIDE RECORDS SUMMARY | 2025-02-24 17:25 | XMS_ITS | Data Portability ---
Author Organization [facility] CANDICE Bueno [place] [facility] Address [address] [facility] [address] [place] [address] Care Team Providers Care Safety Technician Name Role Phone SAVANNA DIXON Primary Care Provider Assessment Encounter Date Assessment Date Assessment LastModified by Organization Details LastModified Time 09/04/2021 09/04/2021 We discussed the significance of elevated PSA. I explained that an elevated PSA does not necessarily mean the presence of prostate cancer, but that it should be further investigated with either a prostate ultrasound and biopsy or a repeat PSA. I explain the significance of a rising PSA, and the fact that there is not necessarily a certain value that would be considered normal in the face of an rising PSA. We discussed possible etiologies such as prostate cancer, infection, inflammation, benign prostatic hyperplasia. We discussed the option for prostate biopsy to rule out prostate cancer. Patient voices understanding. The risks, benefits, alternatives to procedure were discussed with the patient. [email or web address] Not available 09/14/2021 19:12:08 Plan of Treatment Reminders Order Date Submit Date Provider Last Modified By Organization Details Last Modified Time Details Appointments None recorded. Lab urinalysis panel, auto 2021 022 [email or web address] 14 [facility] With [facility], [address] , [address], [place], [address], 19:12:09 Referral None recorded. Procedures biopsy, prostate, needle (PROC) - TRUS BIOPSY -- MAC [email or web address] [facility], [address] [facility], [place], [address], 15:56:53 Surgeries None recorded. Imaging None recorded. Medication Orders Cipro 500 mg tablet 2021 022 [email or web address] 14 [facility], [facility] [place], [address], 19:10:50 tamsulosin 0.4 mg capsule 2021 022 [facility], [address] [place], [address], 15:00:01 Patient TargetsNo targets recorded. Patient Instructions Encounter Date Encounter Id Patient Instructions Last Modified By Organization Details Last Modified Time 09/04/2021 [id number] learning about healthy weight [email or web address] Not available 09/14/2021 19:12:09 Reason for Referral None Reported. Results Created Date Observation Date Name Description Value Unit Range Abnormal Flag Note LastModifiedBy Organization Detail LastModifiedTime 09/05/19 22 09/04/2021 urina lysis panel , auto Unknown Analyte Clean Catch Not Available [facility] With [address], [place], [address], 09/04/2021 19:30:09 09/05/19 22 09/04/2021 urina lysis panel , auto Unknown Analyte Yellow Not Available [facility] With [address], [place], [address], 09/04/2021 19:30:09 09/05/19 22 09/04/2021 urina lysis panel , auto Unknown Analyte Clear Not Available [facility] With [address], [place], [address], 09/04/2021 19:30:09 09/05/19 22 09/04/2021 urina lysis panel , auto Unknown Analyte 1.020 Not Available [facility] With [address], [place], [address], 09/04/2021 19:30:09 09/05/19 22 09/04/2021 urina lysis panel , auto Unknown Analyte 1.003- 1.035 Not Available [facility] With [address]or [place], [place], [address], 09/04/2021 19:30:09 09/05/19 22 09/04/2021 urina lysis panel , auto Unknown Analyte 5.0 Not Available [facility] With [address] [place], [place], [address], 09/04/2021 19:30:09 09/05/19 22 09/04/2021 urina lysis panel , auto Unknown Analyte 5.0-8. 0 Not Available [facility] With [address] [place], [place], [address], 09/04/2021 19:30:09 09/05/19 22 09/04/2021 urina lysis panel , auto Unknown Analyte Negati ve Not Available [facility] With [address], [place], [address], 09/04/2021 19:30:09 09/05/19 22 09/04/2021 urina lysis panel , auto Unknown Analyte Negati ve Not Available [facility] With [address], [place], [address], 09/04/2021 19:30:09 09/05/19 22 09/04/2021 urina lysis panel , auto Unknown Analyte Negati ve Not Available [facility] With [address], [place], [address], 09/04/2021 19:30:09 09/05/19 22 09/04/2021 urina lysis panel , auto Unknown Analyte Negati ve Not Available [facility] With [address]aez [address], [place], [address], 09/04/2021 19:30:09 09/05/19 22 09/04/2021 urina lysis panel , auto Unknown Analyte Negati ve Not Available [facility] With [address], [place], [address], 09/04/2021 19:30:09 09/05/19 22 09/04/2021 urina lysis panel , auto Unknown Analyte Negati ve Not Available [facility] With [address], [place], [address], 09/04/2021 19:30:09 09/05/19 22 09/04/2021 urina lysis panel , auto Unknown Analyte Normal Not Available [facility] With [address], [place], [address], 09/04/2021 19:30:09 09/05/19 22 09/04/2021 urina lysis panel , auto Unknown Analyte Normal Not Available [facility] With [address], [place], [address], 09/04/2021 19:30:09 09/05/19 22 09/04/2021 urina lysis panel , auto Unknown Analyte Negati ve Not Available [facility] With [address], [place], [address], 09/04/2021 19:30:09 09/05/19 22 09/04/2021 urina lysis panel , auto Unknown Analyte Negati ve Not Available [facility] With [address], [place], [address], 09/04/2021 19:30:09 09/05/19 22 09/04/2021 urina lysis panel , auto Unknown Analyte 1 mg/dl Not Available [facility] With [address], [place], [address], 09/04/2021 19:30:09 09/05/19 22 09/04/2021 urina lysis panel , auto Unknown Analyte Normal 1 mg/dl Not Available [facility] With [address], [place], [address], 09/04/2021 19:30:09 09/05/19 22 09/04/2021 urina lysis panel , auto Unknown Analyte 1 mg/dl (+) Not Available [facility] With [address], [place], [address], 09/04/2021 19:30:09 09/05/19 22 09/04/2021 urina lysis panel , auto Unknown Analyte Negati ve Not Available [facility] With [address], [place], [address], 09/04/2021 19:30:09 09/05/19 22 09/04/2021 urina lysis panel , auto Unknown Analyte Negati ve Not Available [facility] With [address], [place], [address], 09/04/2021 19:30:09 09/05/19 22 09/04/2021 urina lysis panel , auto Unknown Analyte Negati ve Not Available [facility] With [address], [place], [address], 09/04/2021 19:30:09 Result Notes None recorded. Problems Name Problem SNOMED Code Status Onset Date Resolution Date Notes Provider Name and Address Organization Details Recorded Time Prostate specific antigen above reference range 456225232 Active 2015 From Automated Load;Provi torsten: Ni Ingram;Sta tus: Active Not Available [facility] 07:29[facility]35 Problem Notes None recorded. Medical Equipment None Reported. Allergies No known drug allergies Medications Name Sig Start Date Stop Date Status Note LastModified by Organization Details LastModified Time tamsulosin 0.4 mg capsule Take 1 capsule every day by oral route for 90 days. active Not Available Not Available Not Avai lable Cipro 500 mg tablet Take 1 tablet every 12 hours by oral route for 3 days. active Not Available Not Available Not Avai lable Tylenol 325 mg tablet Take 2 tablets every 6 hours by oral route. active Not Available Not Available No t Available Vitals Date Recorded Body height Body mass index (BMI) Body weight Provider Name and Address Organization Details Last Updated DateTime 09/04/2021 193.04 cm 22 kg/m2 92172.22 g Danafiordaliza [facility]eric [facility] 09/04/2021 19:27:58 Social History Question Answer Notes LastModified by Organizat ion Details LastModified Time Tobacco Smoking Status Former Smoker Danafiordaliza Frederic [facility] 09/04/2021 19:28:45 What Was The Date Of Your Most Recent Tobacco Screening? 09/04/2021 [email or web address] Information not available 09/04/2021 Sex: Unknown Functional Status None recorded. Mental Status None recorded. Family History Relationship Description Onset Age of this Age Resolved Age Notes LastModified by Organization Details LastModified Time Father Diabetes mellitus [email or web address] Not available 2021 19:28:31 Medical History Condition Response Asthma Y Past Encounters Encounter ID Performer Location Encounter Start Date Encounter Closed Date Diagnosis/Indication Diagnosis SNOMED-CT Code Diagnosis ICD10 Code Diagnosis IMO Codes Diagnosis Note [id number] NI INGRAM MD [facility] [address] [address] 09/04/2021 14:45:50 09/15/2021 11:17:06 Prostate specific antigen above reference range 807113923 R97.20 Benign pro static hyperplasia with outflow obstruction 082134378 N40.1 Health Concerns Section Related Observation LastModified by Organization Detai ls LastModified Time None Recorded Concern Status LastModified by Organization Details LastModified Time None Recorded Advance Directives Directive None Recorded Payers Insurance Date Sequence Insurance Name Policy Number Policy Sweeney Covered Member ID Sweeney Member ID Guarantor Name 08/11/2022 2 [employer] (MEDICARE SUPPLEMENT) Pj Mariano [id number] Pj Mariano 08/11/2022 1 [place] Pj Mariano [id number] Pj Mariano Notes Date Note Type Note Provider Name and Address Organization Details Recorded Time 09/04/2021 text/html 70-year-old male in the office for my initial evaluation and for discussion of raised PSA of 12.1. He has history of raised PSA with prostate biopsy in 2016. No family history of prostate malignancy. He voids 3 times daily with nocturia 1-2 times nightly. He reports hesitancy. No hematuria or dysuria. He has decreased force of stream. NI INGRAM MD [address] [place] [address], [address], [facility] 09/14/2021 19:12:39
--- OUTSIDE RECORDS SUMMARY | 2025-02-24 17:25 | XMS_ITS | Encounter Summary ---
Author Organization [employer] ([place], [place], [place], [place], [place]) Address [address] [place] [address] Care Team Providers Care House Mover Supervisor Name Role Phone Maria L Dunn NP Primary Care Provider [phone] Encounter Details Date Type Department Care Team (Late st Contact Info) Description 01/14/2024 Telephone [facility] - [address] [place] [address] Flor Pierre CMA Social History Tobacco Use Types Packs/Day Years [...] Date Sebastian rded Speak language other than Mauritanian at home Not on file 08/20/2023 Want [...] on file documented as of this encounter Miscellaneous Notes * Telephone Encounter - Flor Pierre CMA - 01/14/2024 11:13 AM EST Notified pts about upcoming scan and prep instructions. She verbalized understanding. ENTIONAL UNDERWRITER documented in this encounter Plan of Treatment Upcoming Encounters Date Type Department Care Team (Late st Contact Info) Description 07/11/2025 10:15 AM EDT Office Visit [facility] - [address] [place] [address] Ash Mo MD [facility] [address] [place] [address] documented as of this encounter Visit Diagnoses Not on filedocumented in this encounter Care Teams House Mover Supervisor Relationship Specialty Start Date End Date Maria L Dunn NP [address] [facility] [address] [place] [address] PCP - General Family Medicine 01/21/24 documented as of this encounter
--- OUTSIDE RECORDS SUMMARY | 2025-02-24 17:25 | XMS_ITS | Encounter Summary ---
Author Organization [employer] ([place], [place], [place], [place], [place]) Address [address] [place] [address] Care Team Providers Care Seating Captain Name Role Phone Maria L Dunn NP Primary Care Provider [phone] Encounter Details Date Type Department Care Team (Late st Contact Info) Description 01/31/2024 Telephone [facility] - [address] [place] [address] Flor Pierre CMA Social History [...] Date Sebastian rded Speak language other than Colombian at home Not on file 08/20/2023 Want [...] Telephone Encounter - Flor Pierre CMA - 01/31/2024 8:55 AM EST Notification was received from [facility] that pt has been scheduled for PET at their facility on 02/01/24 @ 9:45. ER EXPLOSION documented in this encounter Plan of Treatment Upcoming Encounters Date Type Department Care Team (Late st Contact Info) Description 07/11/2025 10:15 AM EDT Office Visit [facility] - [address] [place] [address] Ash Mo MD [address] [facility] [address] [place] [address] documented as of this encounter Visit Diagnoses Not on filedocumented in this encounter Care Teams Seating Captain Relationship Specialty Start Date End Date Maria L Dunn NP [address] [facility] [address] [place] [address] PCP - General Family Medicine 01/21/24 documented as of this encounter
--- OUTSIDE RECORDS SUMMARY | 2025-02-24 17:25 | XMS_ITS | Encounter Summary ---
Author Organization [employer] ([place], [place], [place], [place], [place]) Address [address] [place] [address] Care Team Providers Care Scada Technician Name Role Phone Maria L Dunn NP Primary Care Provider [phone] Encounter Details Date Type Department Care Team (Late st Contact Info) Description 01/21/2024 Telephone [facility] - [address] [place] [address] Flor Pierre CMA Social History [...] Date Sebastian rded Speak language other than Scottish at home Not on file 08/20/2023 Want [...] Telephone Encounter - Flor Pierre CMA - 01/21/2024 9:10 AM EST Pt is here try to get his scans w/ and w/o contrast but Sarah states a couple different people have tried to stick pt and they have even tried to use ultrasound to get iv start but it is a no go. I conferred w/ Dr Rojas on how to handle proceeding. He is ok w/ pt having w/out only. Sarah will adjust the orders and forward to doc. ARCH ASST documented in this encounter Plan of Treatment Upcoming Encounters Date Type Department Care Team (Late st Contact Info) Description 07/11/2025 10:15 AM EDT Office Visit [facility] - [address] [place] [address] Ash Mo MD [address] [facility] [address] [place] [address] documented as of this encounter Visit Diagnoses Not on filedocumented in this encounter Care Teams Scada Technician Relationship Specialty Start Date End Date Maria L Dunn, [place] [address] [facility] [address] [place] [address] PCP - General Family Medicine 01/21/24 documented as of this encounter
--- NOTE | 2025-02-24 17:26 | ED_ITS ---
Discharge Plan Disposition Patient Disposition: Admitted Prescriptions Prescriptions: No Action albuterol sulfate 2.5 mg /3 mL (0.083 %) solution for nebulization 2.5 mg inhalation PRN Trelegy Ellipta 100-62.5-25 mcg blister with device 1 inh inhalation DAILY Referrals Follow up/Referrals: Maria L Dunn APRN [Primary Care Provider, Medical] - See instructions Clinical Impressions Clinical Impression: Sepsis due to pneumonia Print Language Print Language: Danish Discharge ED Provider: Kaleb Vera HPI General Chief Complaint: Shortness of Breath/Dyspnea Stated Complaint: SOA,cough Time Seen by Provider: 02/24/25 17:17 Mode of Arrival: Wheelchair Source of Information: Patient Description of Symptoms (Recalled from ER Triage Doc. by RN): Patient states about 1-2 hours ago he started coughing and feeling short of breath. States he has also had a productive cough. History of Present Illness HPI narrative: Pj Mariano is a 74y male with a history of lung cancer, lung nodules, COPD who presents to the emergency department for complaints of a productive cough and shortness of breath. Patient states that starting just a few hours ago, he developed a coughing fit productive of clear/green sputum and feels short of breath. Feels like he cannot catch his breath completely. He does report some mild left sided chest pain that is not present currently. He denies any fevers. No known sick contacts. Related Data Home Medications ?Medication ?Instructions ?Recorded ?Confirmed albuterol sulfate 2.5 mg/3 mL 2.5 mg inhalation PRN 09/14/24 (0.083 %) solution for nebulization fluticasone fur. 100 mcg-umeclid 1 inh inhalation CHAIM Y 09/14/24 09/14/24 62.5 mcg-vilant 25 mcg inhalat.powder (Trelegy Ellipta) Allergies Allergy/AdvReac Type Severity Reaction Status Date / Time No Known Allergies Allergy Verified 02/24/25 17:24 [facility] Disclaimer: The information contained in this section may have been updated after the patient was seen, as this information can be updated by other users. Medical History (Updated 02/24/25 @ 20:28 by Kaleb Vera MD) History of lung cancer in adulthood Multiple lung nodules on CT History of skin cancer Lung mass Pneumonia Adenopathy, cervical Acute exacerbation of chronic obstructive pulmonary disease Surgical History (Updated 09/14/24 @ 14:50 by CHEYENNE Longoria) History of hand surgery History of lobectomy of lung History of surgery on lower extremity Family History (Updated 09/14/24 @ 14:51 by CHEYENNE Longoria) Brother Cancer Social History (Updated 09/14/24 @ 14:51 by CHEYENNE Longoria) Smoking Status: Former smoker tobacco type: cigarettes packs per day: 2 pack- years: 100 alcohol intake: never current occupational status: other Travel in the last 8 weeks?: None Have you lived/traveled outside US in past 30 days?: No Contact w/someone who lives/traveled outside US past 30 days?: No Exposure to someone with infectious disease in past 14 days?: No Do you have a fever (greater than 100.4 F or 38 C)?: No Have you tested positive for COVID-19?: No Exposed to someone with COVID-19 in past 14 days?: No Do you have a sore throat?: No Do you have a cough?: No Do you have any weakness?: No Do you have any diarrhea?: No Are you experiencing any unusual bleeding?: No Do you have any muscle aches/pain?: No Do you have any abdominal pain?: No Are you experiencing loss of taste or smell?: No Other Medical History Have you received the Flu Vaccine for this season: No Have you received the Pneumonia Vaccine: Yes ROS Obtained: Yes Systems reviewed as appropriate & no additional complaints except as documented Physical Exam General General appearance: alert Comment: Increased work of breathing and active cough Head Head exam: atraumatic Eye Eye exam: Present normal appearance ENT ENT exam: Present normal external ear exam Neck Neck exam: Present full ROM Chest Chest inspection: Present symmetric chest wall rise Respiratory Respiratory exam: Present respiratory distress (Increased work of breathing); Absent normal lung sounds bilaterally (Rhonchi and mild wheezing bilaterally), wheezes or stridor Cardiovascular Cardiovascular exam: Present normal rhythm and tachycardia Abdominal Exam Abdominal exam: Present soft; Absent tenderness or guarding exam: Present deferred Extremities Exam Extremities exam: Present normal inspection Back Exam Back exam: Present normal inspection Neurological Exam Neurological exam: Present alert and oriented X3 Psychiatric Psychiatric exam: Present normal affect Skin Skin exam: Present warm and dry HEART Score HEART Score HEART Score assessment performed?: No Critical Care Critical Care Time Critical Care Time: Yes Attestation: On 02/24/25, the high probability of a clinically significant, sudden or life threatening deterioration of the following system(s) required my full and direct attention, intervention and personal management. The time I documented below is in addition to time spent performing reported procedures but includes the following listed in this critical care notation. Total Time Total Critical Care Time: 35 Medical Decision Making Judd Inquiry Pt receiving controlled substance: No Vital Signs Vital Signs: 02/24/25 17:19 02/24/25 17:39 02/24/25 18:01 Temperature 99.4 F Temperature Source Oral Pulse Rate 134 H 128 H Pulse Rate [Right Brachial] 130 H Respiratory Rate 20 Blood Pressure 175/88 H 162/79 H Blood Pressure [Right Arm] 130/111 H Blood Pressure Mean [Right Arm] 117 Blood Pressure Source [Right Arm] Automatic Cuff Blood Pressure Position [Right Arm] Sitting 02 Sat by Pulse Oximetry 95 93 L 94 L Oxygen Delivery Method Room Air 02/24/25 18:30 02/24/25 19:57 Temperature Temperature Source Pulse Rate 130 H Pulse Rate [Right Brachial] Respiratory Rate Blood Pressure 147/64 H Blood Pressure [Right Arm] Blood Pressure Mean [Right Arm] Blood Pressure Source [Right Arm] Blood Pressure Position [Right Arm] 02 Sat by Pulse Oximetry 98 96 Oxygen Delivery Method Room Air Lab Data Labs: Lab Results 02/24/25 17:35: WBC 13.7 H, RBC 4.71, Hgb 14.1, Hct 41.8 L, MCV 88.7, MCH 29.9, MCHC 33.7, RDW 12.5, Plt Count 260, MPV 10.3, Neut % (Auto) 86.6 H, Lymph % (Auto) 6.5 L, Nicholas % (Auto) 6.0, Eos % (Auto) 0.1, Baso % (Auto) 0.4, Neut # (Auto) 11.8 H, Lymph # (Auto) 0.9, Nicholas # (Auto) 0.8, Eos # (Auto) 0.0, Baso # (Auto) 0.1, Sodium 137, Potassium 4.1, Chloride 101, Carbon Dioxide 25, Anion Gap 15.1 H, BUN 12, Creatinine 0.70, Estimated Creat Clear 61, Estimated GFR 110, Est GFR ( Amer) 133, Glucose 116 H, Calcium 10.1, Total Bilirubin 1.1, AST 26, ALT 21, Alkaline Phosphatase 79, Troponin I < 0.01, C-Reactive Protein 63.6 H, NT-Pro-B Natriuret Pep 367, Total Protein 7.9, Albumin 4.6, G lobulin 3.3 H, Albumin/Globulin Ratio 1.4 02/24/25 17:41: VBG pH 7.35, VBG pCO2 43.0, VBG pO2 30.0, VBG HCO3 23.3, VBG Total CO2 24.6, VBG O2 Saturation 53.8, VBG Base Excess -2.3, VBG Lactic Acid 3.5 H 02/24/25 17:35 02/24/25 17:35 Response Orders (Tests/Meds): ED MEDICATIONS Discontinued Medications Generic Name Dose Route Start Last Admin Trade Name Freq PRN Reason Stop Dose Admin Albuterol/Ipratropium 9 ml 02/24/25 17:22 02/24/25 18:05 Ipratropium/Albuterol 3 Ml Neb IH 02/24/25 17:23 9 ml ONCE ONE Administration Lactated Ringer's 2,400 mls @ 1,200 mls/hr 02/24/25 17:22 02/24/25 18:57 Lactated Ringer's 1000 Ml Bag 30 ml/kg infuse over 2 hr (2400 ml) 02/24/25 19:21 1,200 mls/hr IV Administration .Q2H ONE Magnesium Sulfate 2 gm in 50 mls @ 50 mls/hr 02/24/25 17:22 02/24/25 18:27 Magnesium Sulfate 2gm/50ml Premix IV 02/24/25 18:21 Infused ONCE ONE Infusion Azithromycin 500 mg/ Sodium 250 mls @ 250 mls/hr 02/24/25 17:24 02/24/25 18:57 Chloride IV 02/24/25 17:25 250 mls/hr ONCE ONE Administration Ceftriaxone Sodium 1 gm/ 50 mls @ 100 mls/hr 02/24/25 17:23 02/24/25 18:56 Sodium Chloride IV 02/24/25 17:52 Infused ONCE ONE Infusion Methylprednisolone Sodium Succinate 125 mg 02/24/25 17:22 02/24/25 18:02 Methylprednisolone Sod Succ 125mg Vial IV 02/24/25 17:23 125 mg ONCE ONE Administration ORDERS Category Date Time Status CXR --portable [XR chest portable] Stat Exams 02/24/25 18:09 Completed BNP [NT Pro Brain Natriuretic Pep.] Stat Lab 02/24/25 17:35 Completed CBC w/Auto Diff [Complete Blood Count Auto Diff] Stat Lab 02/24/25 17:35 Completed CMP [Comprehensive Metabolic Panel] Stat Lab 02/24/25 17:35 Completed CRP [C-Reactive Protein] Stat Lab 02/24/25 17:35 Completed Troponin I Q3H Lab 02/24/25 20:30 Ordered Troponin I Q3H Lab 02/24/25 23:30 Ordered Troponin I Stat Lab 02/24/25 17:35 Completed Blood Culture Stat Micro 02/24/25 18:00 Received VBG [Venous Blood Gas] Stat RT 02/24/25 17:41 Completed ECG Data Tracing #1: Attestation: I reviewed this ECG and interpreted as documented below: ECG Narrative: Sinus tachycardia. No STEMI. QTc normal at 363 MDM Narrative Medical Decision Narrative: Pj Mariano is a 74y male with a history of lung cancer, lung nodules, COPD who presents to the emergency department for complaints of a productive cough and shortness of breath. Patient states that starting just a few hours ago, he developed a coughing fit productive of clear/green sputum and feels short of breath. Feels like he cannot catch his breath completely. He does report some mild left sided chest pain that is not present currently. He denies any fevers. No known sick contacts. On arrival, patient's diastolic blood pressure was elevated with blood pressure 130/111, tachycardic with a heart rate of 130 bpm, borderline tachypneic, temperature of 99.4 ?F, 95% SpO2 on room air. Physical exam, stated above, reveals patient with an active cough productive of clear green sputum. He has rhonchi and some mild wheezing bilateral lungs. He is tachycardic but no murmurs or rubs. He does not appear volume overloaded with no peripheral edema. Differential diagnosis includes, but is not limited to: Sepsis, pneumonia, viral respiratory illness, COPD exacerbation, CHF, pulmonary embolism, pleural effusion, among others. The most morbid conditions were considered and workup was based on these. Workup in the Emergency Department included: CT PE protocol, CBC with differential, CMP, VBG with lactate, troponin, BNP, CRP, rapid COVID and flu testing, blood culture x 2. Patient was administered 125 mg of methylprednisolone IV, 2 g IV magnesium sulfate IV, continuous DuoNeb treatment as well as 1 g of IV Rocephin and 500 mg of IV azithromycin due to concern for sepsis. Patient's laboratory workup shows leukocytosis of 13.7 with neutrophilia. VBG shows elevated lactate of 3.5 but otherwise unremarkable nonactionable. Patient is receiving sepsis bolus fluids. Mildly elevated anion gap 15.1, likely related to elevated lactate. Electrolytes and kidney function otherwise within normal limits. Liver enzymes bilirubin within normal limits. No troponin less than 0.01. CRP elevated at 63.6. Initial EKG was interpreted by me personally shows sinus tachycardia. No ST elevation or depression. No T wave inversions. QTc normal at 363 Chest x-ray was interpreted by me personally and shows a focal consolidation in the right lower lobe concerning for pneumonia. See final radiology report for details. I discussed these findings with patient and due to his pneumonia, tachycardia, elevated white blood cell count, he meets sepsis criteria I do feel that he would benefit from admission for continued IV antibiotics. Patient's PSI score is 115, recommend hospital admission. Patient and spouse at bedside are in agreement for admission at this time. I then discussed patient's case with Dr. Suarez with the hospital medicine service for admission and he agreed to admit the patient for further management.
--- NOTE | 2025-02-24 17:35 | ECG_ITS ---
APPROVED REPORT Exam: Resting ECG HR:129 bpm ECG Measurements Heart Rate 129 AXES MS 188 P 78 QRSd 87 QRS 68 QT 287 T 70 QTc 363 Conclusion SINUS TACHYCARDIA POSSIBLE RIGHT VENTRICULAR CONDUCTION DELAY [RSR (QR) IN V1/V2] SEPTAL MYOCARDIAL INFARCTION , PROBABLY OLD [40+ ms Q WAVE IN V1/V2] No STEMI Electronically signed by : YINA COSTA, 02/25/2025 07:14:24
[2025-02-24 17:45] LABS: Hematocrit 41.8 % (42.0-52.0); Hemoglobin 14.1 g/dL (14.1-18.0); Immature Granulocytes % 0.4 %; Mean Corpuscular HGB Conc 33.7 g/dL (31.8-35.4); Mean Corpuscular Hemoglobin 29.9 pg (27.0-31.2); Mean Corpuscular Volume 88.7 fl (80-94); Nucleated Red Blood Cells % 0 %; Platelet Count 260 K/mm3 (142-424); Red Blood Count 4.71 M/mm3 (4.60-6.20); Red Cell Distribution Width-SD 40.7 fL; White Blood Count 13.7 K/mm3 (4.8-10.8)
[2025-02-24 17:52] LABS: Albumin Level 4.6 g/dl (3.5-5.0); Chloride 101 mmol/L (98-107); Potassium 4.1 mmoL/L (3.5-5.1); Sodium 137 mmol/L (136-145)
[2025-02-24 17:55] LABS: Alanine Aminotransferase 21 U/L (12-78); Albumin/Globulin Ratio 1.4 (1.1-1.8); Alkaline Phosphatase 79 U/L (38-126); Anion Gap 15.1 mEq/L (5-15); Aspartate Amino Transferase 26 U/L (17-59); Bilirubin,Total 1.1 mg/dl (0.2-1.3); Blood Urea Nitrogen 12 mg/dl (9-20); Calcium 10.1 mg/dl (8.4-10.2); Carbon Dioxide 25 mmol/L (22.0-30.0); Creatinine Clearance Estimated 61 mL/min (50-200); Creatinine,Serum 0.70 mg/dl (0.66-1.25); Estimated Glomerular Filt Rate 110 ml/min (>60); GFR (African American) 133 ML/MIN (>60); Globulin 3.3 g/dL (1.3-3.2); Glucose 116 mg/dl (74-100); Total Protein,Serum 7.9 g/dl (6.3-8.2)
[2025-02-24 18:00] LABS: C-Reactive Protein 63.6 mg/L (0-4)
[2025-02-24] MEDS: METHYLPREDNISOLONE SOD SUCC 125MG VIAL 125 MG IV (18:02)
[2025-02-24] MEDS: MAGNESIUM SULFATE IN WATER 2 GM/50 ML PIGGYBACK IV (18:02)
[2025-02-24 18:05] LABS: NT Pro Brain Natriuretic Pep. 367 pg/mL (0-450)
[2025-02-24] MEDS: IPRATROPIUM/ALBUTEROL 3 ML NEB 9 ML IH (18:05)
[2025-02-24 18:06] LABS: VBG HCO3 23.3 mmol/L (23-30); VBG PCO2 43.0 mmol/L (35-51); VBG PH 7.35 mmol/L (7.31-7.41); VBG PO2 30.0 mmol/L (28-40)
[2025-02-24 18:07] LABS: Lactate Venous 3.5 mmol/L (0.4-2.0)
--- NOTE | 2025-02-24 18:09 | XR_ITS ---
PROCEDURE INFORMATION: Exam: XR Chest Exam date and time: 02/24/2025 6:37 PM Age: 74 years old Clinical indication: Shortness of breath; Additional info: SOB, cough TECHNIQUE: Imaging protocol: Radiologic exam of the chest. Views: 1 view. COMPARISON: 1. CR XR CHEST 2V 03/23/2024 10:37 AM 2. CR XR CHEST 2V 02/26/2024 12:34 AM FINDINGS: Lungs: Stable appearing bandlike density in the right suprahilar region. Interval development of airspace opacification right lung base suggesting pneumonia. Lung anderson otherwise clear. Pleural spaces: Unremarkable. No pleural effusion. No pneumothorax. Heart/Mediastinum: Unremarkable. No cardiomegaly. Bones/joints: Unremarkable. IMPRESSION: Interval development of right lower lung field pneumonia. Advise follow-up chest x-ray in 4-6 weeks to ensure resolution. Findings should be followed until completely resolved.
[2025-02-24 18:11] LABS: Troponin I < 0.01 ng/ml (0.00-0.034)
[2025-02-24] MEDS: CEFTRIAXONE 1 GM 1 GM in 0.9 % SODIUM CHLORIDE 50 ML IV (18:20)
[2025-02-24] MEDS: LACTATED RINGERS 1000ML 2,400 ML 1200 ML IV (18:57)
[2025-02-24] MEDS: AZITHROMYCIN 500 MG in 0.9 % SODIUM CHLORIDE 250 ML 250 MG IV (18:57)
[2025-02-24 22:08] LABS: Reflex Lactic Add Lactic Reflex
--- NOTE | 2025-02-24 22:35 | EXP.HP ---
History of Present Illness *Admission Date: 02/24/25 *Reason for visit:: Pneumonia *History of present illness: 74y male with a history of lung cancer, lung nodules, COPD who presents to the emergency department for complaints of a productive cough and shortness of breath. Patient states that starting just a few hours ago, he developed a coughing fit productive of clear/green sputum and feels short of breath. cannot catch his breath completely. some mild left sided chest pain that is not present currently. He denies any fevers. No known sick contacts. On arrival, patient's diastolic blood pressure was elevated with blood pressure 130/111, tachycardic with a heart rate of 130 bpm Differential diagnosis includes, but is not limited to: Sepsis, pneumonia, viral respiratory illness, COPD exacerbation, CHF, pulmonary embolism, pleural effusion, among others. The most morbid conditions were considered and workup was based on these. Emergency Department administered 125 mg of methylprednisolone IV, 2 g IV magnesium sulfate IV, continuous DuoNeb treatment as well as 1 g of IV Rocephin and 500 mg of IV azithromycin due to concern for sepsis. Feels significantly better after treatment. Discussed admission for further management, patient agreeable. Chest x-ray was interpreted by me personally and shows a focal consolidation in the right lower lobe concerning for pneumonia no other complaints at this time. [facility] Disclaimer: The information contained in this section may have been updated after the patient was seen, as this information can be updated by other users. Medical History History of lung cancer in adulthood Multiple lung nodules on CT History of skin cancer Lung mass Pneumonia Adenopathy, cervical Acute exacerbation of chronic obstructive pulmonary disease Surgical History History of hand surgery History of lobectomy of lung History of surgery on lower extremity Family History Brother Cancer Social History (Updated 02/24/25 @ 22:19 by Kinga Turner RN) Smoking Status: Former smoker tobacco type: cigarettes packs per day: 2 pack-years: 100 alcohol intake: never current occupational status: retired and other Travel in the last 8 weeks?: None Have you lived/traveled outside US in past 30 days?: No Contact w/someone who lives/traveled outside US past 30 days?: No Exposure to someone with infectious disease in past 14 days?: No Do you have a fever (greater than 100.4 F or 38 C)?: No Have you tested positive for COVID-19?: No Exposed to someone with COVID-19 in past 14 days?: No Do you have a sore throat?: No Do you have a cough?: No Do you have any weakness?: No Do you have any diarrhea?: No Are you experiencing any unusual bleeding?: No Do you have any muscle aches/pain?: No Do you have any abdominal pain?: No Are you experiencing loss of taste or smell?: No Other Medical History Have you received the Flu Vaccine for this season: Yes Have you received the Pneumonia Vaccine: Yes Review of Systems Review of Systems Review of systems:: pertinent systems reviewed and negative unless documented below Constitutional Constitutional: Reports system reviewed and no additional complaints, except as documented Eyes Eyes: Reports system reviewed and no additional complaints, except as documented *Cardiovascular Cardiovascular: Reports system reviewed and no additional complaints, except as documented *Respiratory Respiratory: Reports system reviewed and no additional complaints, except as documented *Gastrointestinal Gastrointestinal: Reports system reviewed and no additional complaints, except as documented *Genitourinary Genitourinary: Reports system reviewed and no additional complaints, except as documented *Musculoskeletal Musculoskeletal: Reports system reviewed and no additional complaints, except as documented Meds Home Medications and Allergies Home Medications ?Medication ?Instructions ?Recorded ?Confirmed ?Type albuterol sulfate 2.5 mg/3 mL 2.5 mg inhalation PRN 09/14/24 09/14/24 History (0.083 %) solution for nebulization fluticasone fur. 100 mcg-umeclid 1 inh inhalation DAILY 09/14/24 09/14/24 History 62.5 mcg-vilant 25 mcg inhalat.powder (Trelegy Ellipta) New Prescriptions to Start Prescriptions: Allergies Allergy/AdvReac Type Severity Reaction Status Date / Time No Known Allergies Allergy Verified 02/24/25 17:24 Exam Data for Last 24 hours Vital signs and Labs for Last 24 Hours: Temp Pulse Resp BP Pulse Ox O2 Del Method 98.4 F 104 H 21 135/66 97 Room Air 02/24/25 21:51 02/24/25 21:51 02/24/25 21:51 02/24/25 21:51 02/24/25 21:51 02/24/25 21:51 Laboratory Results - last 24 hr 02/24/25 17:35: WBC 13.7 H, RBC 4.71, Hgb 14.1, Hct 41.8 L, MCV 88.7, MCH 29.9, MCHC 33.7, RDW 12.5, Plt Count 260, MPV 10.3, Neut % (Auto) 86.6 H, Lymph % (Auto) 6.5 L, Sunflower % (Auto) 6.0, Eos % (Auto) 0.1, Baso % (Auto) 0.4, Neut # (Auto) 11.8 H, Lymph # (Auto) 0.9, Sunflower # (Auto) 0.8, Eos # (Auto) 0.0, Baso # (Auto) 0.1, Sodium 137, Potassium 4.1, Chloride 101, Carbon Dioxide 25, Anion Gap 15.1 H, BUN 12, Creatinine 0.70, Estimated Creat Clear 61, Estimated GFR 110, Est GFR ( Amer) 133, Glucose 116 H, Calcium 10.1, Total Bilirubin 1.1, AST 26, ALT 21, Alkaline Phosphatase 79, Troponin I < 0.01, C-Reactive Protein 63.6 H, NT-Pro-B Natriuret Pep 367, Total Protein 7.9, Albumin 4.6, Globulin 3.3 H, Albumin/Globulin Ratio 1.4 02/24/25 17:41: VBG pH 7.35, VBG pCO2 43.0, VBG pO2 30.0, VBG HCO3 23.3, VBG Total CO2 24.6, VBG O2 Saturation 53.8, VBG Base Excess -2.3, VBG Lactic Acid 3.5 H I & O for Last 24 hours: Intake & Output 02/21/25 02/22/25 02/23/25 02/24/25 23:59 23:59 23:59 23:59 Intake Total 100 / 100 Balance 100 / 100 Weight 159.8 kg Constitutional Constitutional: no acute distress *Routine HEENT Exam Head: Present normocephalic Eye: Present EOMI and PERRL ENT: Present mucous membranes moist *Routine Neck Exam Neck: Present supple; Absent lymphadenopathy *Routine Respiratory Exam Respiratory: Present CTA bilaterally *Routine Cardiovascular Exam Cardiovascular: Present RRR *Routine Abdominal Exam Abdominal: Present soft and normoactive bowel sounds; Absent tenderness *Routine Rectal Exam Rectal:: deferred *Routine Genitalia Exam Genitalia:: deferred *Routine Extremities Exam Extremities: Absent cyanosis, clubbing or edema *Routine Skin Exam Skin: Present warm; Absent rash *Routine Neurological Exam Neurological: Present alert and oriented X3 Assessment and Plan *Assessment and plan (1) Sepsis due to pneumonia: Status: Acute Category: Medical Code(s): J18.9 - Pneumonia, unspecified organism; A41.9 - Sepsis, unspecified organism Plan pneumonia RLL sepsis - IV antiobiotics - breathing tx q6hr - diet - methylprednisolone - supportive management
[2025-02-24 23:01] LABS: Lactic Acid Follow Up (RFLX 1) 1.2 mmol/L (0.7-2.1)
[2025-02-24 23:15] LABS: Troponin I < 0.01 ng/ml (0.00-0.034)
[2025-02-25] VITALS: BP 131/59; PULSE 93; RESP 14; TEMP 36.8; O2SAT 96
[2025-02-25 04:00] VITALS: BP 132/66; PULSE 77; RESP 16; TEMP 36.6; O2SAT 96; BMI 21.2
[2025-02-25 07:37] LABS: Hematocrit 33.9 % (42.0-52.0); Immature Granulocytes % 0.5 %; Mean Corpuscular HGB Conc 32.7 g/dL (31.8-35.4); Mean Corpuscular Hemoglobin 28.8 pg (27.0-31.2); Mean Corpuscular Volume 88.1 fl (80-94); Nucleated Red Blood Cells % 0 %; Platelet Count 211 K/mm3 (142-424); Red Blood Count 3.85 M/mm3 (4.60-6.20); Red Cell Distribution Width-SD 40.7 fL; White Blood Count 17.4 K/mm3 (4.8-10.8)
[2025-02-25 07:40] LABS: Albumin Level 3.5 g/dl (3.5-5.0)
[2025-02-25 07:41] LABS: Chloride 107 mmol/L (98-107); Potassium 3.8 mmoL/L (3.5-5.1); Sodium 136 mmol/L (136-145)
[2025-02-25 07:43] LABS: Alanine Aminotransferase 13 U/L (12-78); Aspartate Amino Transferase 20 U/L (17-59); Blood Urea Nitrogen 10 mg/dl (9-20); Creatinine Clearance Estimated 66 mL/min (50-200); Creatinine,Serum 0.60 mg/dl (0.66-1.25); Estimated Glomerular Filt Rate 131 ml/min (>60); GFR (African American) 159 ML/MIN (>60)
[2025-02-25 07:44] LABS: Albumin/Globulin Ratio 1.3 (1.1-1.8); Alkaline Phosphatase 63 U/L (38-126); Anion Gap 7.8 mEq/L (5-15); Bilirubin,Total 0.7 mg/dl (0.2-1.3); Calcium 9.5 mg/dl (8.4-10.2); Carbon Dioxide 25 mmol/L (22.0-30.0); Cholesterol 100 mg/dl (140-200); Globulin 2.8 g/dL (1.3-3.2); Glucose 141 mg/dl (74-100); Magnesium 2.4 mg/dl (1.6-2.3); Phosphorous 2.6 mg/dl (2.5-4.5); Total Protein,Serum 6.3 g/dl (6.3-8.2); Triglycerides 35 mg/dl (30-150)
[2025-02-25 07:45] LABS: HDL Cholesterol 25 mg/dl (40-60)
[2025-02-25 08:00] VITALS: BP 139/75; PULSE 74; RESP 18; TEMP 36.5; O2SAT 97
[2025-02-25 08:44] LABS: RBC Morphology Normal; Total Cells Counted 100
[2025-02-25 08:53] LABS: Hemoglobin 11.1 g/dL (14.1-18.0)
--- NOTE | 2025-02-25 09:06 | HMH.PHAINT1 ---
Pharmacy Intervention Comments: MEDICATION RECONCILIATION COMPLETED ON PATIENT USING EXTERNAL FILL HISTORY FROM PHARMACY. -DEBBIE IZQUIERDO, GARCIAD
[2025-02-25 09:12] LABS: Adenovirus,PCR Not Detected (NotDetected); Chlamydophila Pneumoniae, PCR Not Detected (NotDetected); Coronavirus 19, PCR Not Detected (NotDetected); Coronovirus HKU1,PCR Not Detected (NotDetected); Influenza A, PCR Not Detected (NotDetected); Influenza AH1, 2009 Not Detected (NotDetected); Influenza AH1, PCR Not Detected (NotDetected); Influenza AH3,PCR Not Detected (NotDetected); Influenza B, PCR Not Detected (NotDetected); Mycoplasma Pneumoniae, PCR Not Detected (NotDetected); Parainfluenza 1, PCR Not Detected (NotDetected); Parainfluenza 2, PCR Not Detected (NotDetected); Parainfluenza 3, PCR Not Detected (NotDetected); Parainfluenza 4, PCR Not Detected (NotDetected)
[2025-02-25 10:30] VITALS: BMI 21.2
[2025-02-25 12:00] VITALS: BP 145/65; PULSE 65; RESP 16; TEMP 36.6; O2SAT 97
--- NOTE | 2025-02-25 13:13 | P.DS_ITS ---
General Admission date:: 02/24/25 HPI HPI HPI: 74y male with a history of lung cancer, lung nodules, COPD who presents to the emergency department for complaints of a productive cough and shortness of breath. Patient states that starting just a few hours ago, he developed a coughing fit productive of clear/green sputum and feels short of breath. cannot catch his breath completely. some mild left sided chest pain that is not present currently. He denies any fevers. No known sick contacts. On arrival, patient's diastolic blood pressure was elevated with blood pressure 130/111, tachycardic with a heart rate of 130 bpm Differential diagnosis includes, but is not limited to: Sepsis, pneumonia, viral respiratory illness, COPD exacerbation, CHF, pulmonary embolism, pleural effusion, among others. The most morbid conditions were considered and workup was based on these. Emergency Department administered 125 mg of methylprednisolone IV, 2 g IV magnesium sulfate IV, continuous DuoNeb treatment as well as 1 g of IV Rocephin and 500 mg of IV azithromycin due to concern for sepsis. Feels significantly better after treatment. Discussed admission for further management, patient agreeable. Chest x-ray was interpreted by me personally and shows a focal consolidation in the right lower lobe concerning for pneumonia no other complaints at this time. Hospital Course Hospital Course Hospital Course: Pj Mariano is a 74-year-old male who presented with progressive shortness of breath, cough and admitted for community-acquired pneumonia, COPD exacerbation. #Acute viral syndrome #Sepsis, resolved #Community-acquired pneumonia #COPD exacerbation #Rhinovirus infection ? Presented with shortness of breath, cough. Found to have right lower lobe pneumonia on CXR. Respiratory panel positive for rhinovirus. ? Initial WBC 13.7, with tachycardia. Met sepsis criteria. ? Clinically improved with IV ceftriaxone, azithromycin, DuoNebs, prednisone. Patient feels better today, on room air. Appropriate saturations on walk test. WBC did bump, but patient feels better and also in the setting of steroids. CRP relatively low. ? Discharged with levofloxacin 750 mg, prednisone 40 mg for 3 more days. Continue Trelegy 100 daily, patient has not been using this for the past week. ? Advised to follow-up with PCP within 1 week. Total time spent on discharge: 32 minutes on chart review, counseling, documentation, and direct care with patient. Exam Data for Last 24 hours Vital signs and Labs for Last 24 Hours: Temp Pulse Resp BP Pulse Ox O2 Del Method 97.9 F 65 16 145/65 H 97 Room Air 02/25/25 12:00 02/25/25 12:00 02/25/25 12:00 02/25/25 12:00 02/25/25 12:00 02/25/25 12:00 Laboratory Results - last 24 hr 02/24/25 17:35: WBC 13.7 H, RBC 4.71, Hgb 14.1, Hct 41.8 L, MCV 88.7, MCH 29.9, MCHC 33.7, RDW 12.5, Plt Count 260, MPV 10.3, Neut % (Auto) 86.6 H, Lymph % (Auto) 6.5 L, Gentry % (Auto) 6.0, Eos % (Auto) 0.1, Baso % (Auto) 0.4, Neut # (Auto) 11.8 H, Lymph # (Auto) 0.9, Gentry # (Auto) 0.8, Eos # (Auto) 0.0, Baso # (Auto) 0.1, Sodium 137, Potassium 4.1, Chloride 101, Carbon Dioxide 25, Anion Gap 15.1 H, BUN 12, Creatinine 0.70, Estimated Creat Clear 61, Estimated GFR 110, Est GFR ( Amer) 133, Glucose 116 H, Calcium 10.1, Total Bilirubin 1.1, AST 26, ALT 21, Alkaline Phosphatase 79, Troponin I < 0.01, C-Reactive Protein 63.6 H, NT-Pro-B Natriuret Pep 367, Total Protein 7.9, Albumin 4.6, Globulin 3.3 H, Albumin/Globulin Ratio 1.4 02/24/25 17:41: VBG pH 7.35, VBG pCO2 43.0, VBG pO2 30.0, VBG HCO3 23.3, VBG Total CO2 24.6, VBG O2 Saturation 53.8, VBG Base Excess -2.3, VBG Lactic Acid 3.5 H 02/24/25 22:42: Lactate 1.2, Troponin I < 0.01 02/25/25 06:50: WBC 17.4 H D, RBC 3.85 L, Hgb 11.1 L D, Hct 33.9 L, MCV 88.1, MCH 28.8, MCHC 32.7, RDW 12.7, Plt Count 211, MPV 10.7 H, Neut % (Auto) 93.4 H, Lymph % (Auto) 2.3 L, Gentry % (Auto) 3.7, Eos % (Auto) 0.0 L, Baso % (Auto) 0.1, Neut # (Auto) 16.3 H, Lymph # (Auto) 0.4 L, Gentry # (Auto) 0.6, Eos # (Auto) 0.0, Baso # (Auto) 0.0, Total Counted 100, Neutrophils % (Manual) 93 H, Lymphocytes % (Manual) 4 L, Monocytes % (Manual) 3, Platelet Estimate Normal, RBC Morphology Normal, Sodium 136, Potassium 3.8, Chloride 107, Carbon Dioxide 25, Anion Gap 7.8, BUN 10, Creatinine 0.60 L, Estimated Creat Clear 66, Estimated GFR 131, Est GFR ( Amer) 159, Glucose 141 H D, Calcium 9.5, Phosphorus 2.6, Magnesium 2.4 H, Total Bilirubin 0.7, AST 20, ALT 13 D, Alkaline Phosphatase 63, Total Protein 6.3, Albumin 3.5 D, Globulin 2.8, Albumin/Globulin Ratio 1.3, Triglycerides 35, Cholesterol 100 L, LDL Cholesterol Direct 74.90 L, VLDL Cholesterol 7, HDL Cholesterol 25 L, Cholesterol/HDL Ratio 4.0 H 02/25/25 09:04: Chlamy pneumoniae PCR Not detected, Adenovirus (PCR) Not detected, B. pertussis DNA (PCR) Not detected, Coronavirus OC43 (PCR) Not detected, Coronavirus HKU1 (PCR) Not detected, Coronavirus 229E (PCR) Not detect ed, SARS-CoV-2 (PCR) Not detected, Coronavirus NL63 (PCR) Not detected, Human Metapneumovir PCR Not detected, Influenza A (H1) PCR Not detected, Influ A (H1N1/09) PCR Not detected, Influenza A (H3) PCR Not detected, Influenza Type A (PCR) Not detected, Influenza Type B (PCR) Not detected, M. pneumoniae (PCR) Not detected, Parainfluenza 1 (PCR) Not detected, Parainfluenza 2 (PCR) Not detected, Parainfluenza 3 (PCR) Not detected, Parainfluenza 4 (PCR) Not detected, RSV (PCR) Not detected, Entero/Rhino (PCR) Detected A I & O for Last 24 hours: Intake & Output 02/22/25 02/23/25 02/24/25 02/25/25 23:59 23:59 23:59 23:59 Intake Total 2750 / 2972 1062 / 1062 Output Total 2125 / 2125 Balance 2750 / 2672 -1063 / -1063 Weight 72.575 kg 72.575 kg Constitutional Constitutional: no acute distress *Routine HEENT Exam Head: Present normocephalic Eye: Present EOMI and PERRL ENT: Present mucous membranes moist *Routine Neck Exam Neck: Present supple; Absent lymphadenopathy *Routine Respiratory Exam Respiratory: Present CTA bilaterally *Routine Cardiovascular Exam Cardiovascular: Present RRR *Routine Abdominal Exam Abdominal: Present soft and normoactive bowel sounds; Absent tenderness *Routine Extremities Exam Extremities: Absent cyanosis, clubbing or edema *Routine Skin Exam Skin: Present warm; Absent rash *Routine Neurological Exam Neurological: Present alert and oriented X3 Results Data Completed and Pending Labs on day of discharge: Labs from last 24 hours 02/25/25 02/25/25 02/24/25 09:04 06:50 22:42 WBC 17.4 H D RBC 3.85 L Hgb 11.1 L D Hct 33.9 L MCV 88.1 MCH 28.8 MCHC 32.7 RDW 12.7 Plt Count 211 MPV 10.7 H Neut % (Auto) 93.4 H Lymph % (Auto) 2.3 L Gentry % (Auto) 3.7 Eos % (Auto) 0.0 L Baso % (Auto) 0.1 Neut # (Auto) 16.3 H Lymph # (Auto) 0.4 L Gentry # (Auto) 0.6 Eos # (Auto) 0.0 Baso # (Auto) 0.0 Total Counted 100 Neutrophils % (Manual) 93 H Lymphocytes % (Manual) 4 L Monocytes % (Manual) 3 Platelet Estimate Normal RBC Morphology Normal VBG pH VBG pCO2 VBG pO2 VBG HCO3 VBG Total CO2 VBG O2 Saturation VBG Base Excess VBG Lactic Acid Sodium 136 Potassium 3.8 Chloride 107 Carbon Dioxide 25 Anion Gap 7.8 BUN 10 Creatinine 0.60 L Estimated Creat Clear 66 Estimated GFR 131 Est GFR ( Amer) 159 Glucose 141 H D Lactate 1.2 Calcium 9.5 Phosphorus 2.6 Magnesium 2.4 H Total Bilirubin 0.7 AST 20 ALT 13 D Alkaline Phosphatase 63 Troponin I < 0.01 C-Reactive Protein NT-Pro-B Natriuret Pep Total Protein 6.3 Albumin 3.5 D Globulin 2.8 Albumin/Globulin Ratio 1.3 Triglycerides 35 Cholesterol 100 L LDL Cholesterol Direct 74.90 L VLDL Cholesterol 7 HDL Cholesterol 25 L Cholesterol/HDL Ratio 4.0 H Chlamy pneumoniae PCR Not detected Adenovirus (PCR) Not detected B. pertussis DNA (PCR) Not detected Coronavirus OC43 (PCR) Not detected Coronavirus HKU1 (PCR) Not detected Coronavirus 229E (PCR) Not detected SARS-CoV-2 (PCR) Not detected Coronavirus NL63 (PCR) Not detected Human Metapneumovir PCR Not detected Influenza A (H1) PCR Not detected Influ A (H1N1/09) PCR Not detected Influenza A (H3) PCR Not detected Influenza Type A (PCR) Not detected Influenza Type B (PCR) Not detected M. pneumoniae (PCR) Not detected Parainfluenza 1 (PCR) Not detected Parainfluenza 2 (PCR) Not detected Parainfluenza 3 (PCR) Not detected Parainfluenza 4 (PCR) Not detected RSV (PCR) Not detected Entero/Rhino (PCR) Detected A 02/24/25 02/24/25 17:41 17:35 WBC 13.7 H RBC 4.71 Hgb 14.1 Hct 41.8 L MCV 88.7 MCH 29.9 MCHC 33.7 RDW 12.5 Plt Count 260 MPV 10.3 Neut % (Auto) 86.6 H Lymph % (Auto) 6.5 L Gentry % (Auto) 6.0 Eos % (Auto) 0.1 Baso % (Auto) 0.4 Neut # (Auto) 11.8 H Lymph # (Auto) 0.9 Gentry # (Auto) 0.8 Eos # (Auto) 0.0 Baso # (Auto) 0.1 Total Counted Neutrophils % (Manual) Lymphocytes % (Manual) Monocytes % (Manual) Platelet Estimate RBC Morphology VBG pH 7.35 VBG pCO2 43.0 VBG pO2 30.0 VBG HCO3 23.3 VBG Total CO2 24.6 VBG O2 Saturation 53.8 VBG Base Excess -2.3 VBG Lactic Acid 3.5 H Sodium 137 Potassium 4.1 Chloride 101 Carbon Dioxide 25 Anion Gap 15.1 H BUN 12 Creatinine 0.70 Estimated Creat Clear 61 Estimated GFR 110 Est GFR ( Amer) 133 Glucose 116 H Lactate Calcium 10.1 Phosphorus Magnesium Total Bilirubin 1.1 AST 26 ALT 21 Alkaline Phosphatase 79 Troponin I < 0.01 C-Reactive Protein 63.6 H NT-Pro-B Natriuret Pep 367 Total Protein 7.9 Albumin 4.6 Globulin 3.3 H Albumin/Globulin Ratio 1.4 Triglycerides Cholesterol LDL Cholesterol Direct VLDL Cholesterol HDL Cholesterol Cholesterol/HDL Ratio Chlamy pneumoniae PCR Adenovirus (PCR) B. pertussis DNA (PCR) Coronavirus OC43 (PCR) Coronavirus HKU1 (PCR) Coronavirus 229E (PCR) SARS-CoV-2 (PCR) Coronavirus NL63 (PCR) Human Metapneumovir PCR Influenza A (H1) PCR Influ A (H1N1/) PCR Influenza A (H3) PCR Influenza Type A (PCR) Influenza Type B (PCR) M. pneumoniae (PCR) Parainfluenza 1 (PCR) Parainfluenza 2 (PCR) Parainfluenza 3 (PCR) Parainfluenza 4 (PCR) RSV (PCR) Entero/Rhino (PCR) DS: Diagnosis Discharge Diagnosis (1) Sepsis due to pneumonia: Status: Acute Code(s): J18.9 - Pneumonia, unspecified organism; A41.9 - Sepsis, unspecified organism Meds Home Medications and Allergies Home Medications ?Medication ?Instructions ?Recorded ?Confirmed ?Type fluticasone fur. 100 mcg-umeclid 1 inh inhalation CHAIM Y 09/14/24 02/25/25 History 62.5 mcg-vilant 25 mcg inhalat.powder (Trelegy Ellipta) levofloxacin 750 mg tablet 750 mg PO DAILY 3 days #3 t abs 02/25/25 Rx prednisone 20 mg tablet 40 mg (2 x 20 mg) PO DAILY 3 days 02/25/25 Rx #6 tabs New Prescriptions to Start Prescriptions: levofloxacin Jose Sykes prednisone Jose Sykes Allergies Allergy/AdvReac Type Severity Reaction Status Date / Time No Known Allergies Allergy Verified 02/24/25 17:24 Discharge Plan Disposition Patient Disposition: Home, Self-Care Condition: Fair Follow up Plan Follow up with: Shaun,Maria L N, [facility] [Primary Care Provider, Medical] - 1 week Prescriptions/Medication Reconciliation: New prednisone 20 mg Tablet 40 mg PO DAILY 3 Days Qty: 6 0RF levofloxacin 750 mg tablet 750 mg PO DAILY 3 Days Qty: 3 0RF Continued Trelegy Ellipta 100-62.5-25 mcg blister with device 1 inh inhalation DAILY Problem Reconciliation Problems Reviewed?: Yes Patient Discharge Instructions Patient Instructions: DI for Sepsis in Adults, Stop Light Pneumonia Print Language: [place] Providers Primary Care Provider: Maria L Dunn Admit Provider: Jose Sykes Attending Provider: Jose Sykes
[2025-02-25] MEDS: CEFTRIAXONE 1 GM 1 GM in 0.9 % SODIUM CHLORIDE 50 ML IV (13:16)
--- NOTE | 2025-02-25 14:09 | PC.NURSE ---
1245: patient was 93% on RA during walk test
--- NOTE | 2025-02-27 10:44 | SW/DCPLANNER ---
Phoned patient x2. Left message with name and a call back number. Dimas Escobar
== END 2025-02-25 14:04 | disposition home or self-care (01) ==
LOC: ER 20:28 → 2ND 21:30
PROVIDERS: Student in an Organized Health Care Education/Training Program; Admitting Provider Student in an Organized Health Care Education/Training Program; Emergency Provider Student in an Organized Health Care Education/Training Program; PCP Nurse Practitioner; Visit Provider Student in an Organized Health Care Education/Training Program
DX: A41.9 Sepsis, unspecified organism (principal); J18.9 Pneumonia, unspecified organism; J44.9 Chronic obstructive pulmonary disease, unspecified; Z85.828 Personal history of other malignant neoplasm of skin; Z90.2 Acquired absence of lung [part of]; Z87.891 Personal history of nicotine dependence; Z79.52 Long term (current) use of systemic steroids; R00.0 Tachycardia, unspecified
CPT/HCPCS: 0223U; 36415; 71045; 80053; 80061; 82803; 83605; 83735; 83880; 84100; 84484; 85007; 85025; 85027; 86140; 87040; 87070; 87205; 93005; 99285; G0378; J0456; J0696; J1650; J2919; J3475; J7050; J7120